=== PATIENT | female | born 1940 | race Caucasian/White ===

== ENCOUNTER → 2016-12-10 | Outpatient (CLI) | payer MEDICARE, OTHER ==
[~2016-12-10] MED LIST: ADAL1INJ INJ; ATOR20TA42 PO; CELE200 PO; CLON.3T TD; FENO50TA PO; LEXA10TA PO; METH2.5 PO; METH4PAK PO; OXYC1SOL5 PO; RIVA20 PO
[2016-12-10 13:15] LABS: AUTOMATED NEUTROPHIL # 2.1 TH/MM3 (1.8-7.7); BASOPHIL % 0.7 % (0.0-2.0); EOSINOPHIL # 0.2 TH/MM3 (0-0.4); EOSINOPHIL % 4.9 % (0.0-4.0); HEMO FLAGS DIFF FINAL; LYMPH % 31.7 % (9.0-44.0); LYMPHOCYTE # 1.5 TH/MM3 (1.0-4.8); MEAN CELL VOLUME 90.6 FL (80.0-100.0); MEAN CORPUSCULAR HEMOGLOBIN 28.9 PG (27.0-34.0); MEAN CORPUSCULAR HGB CONC 31.9 % (32.0-36.0); MONO % 16.2 % (0.0-8.0); NEUT % 46.5 % (16.0-70.0); PLATELET COUNT 299 TH/MM3 (150-450); RED BLOOD COUNT 3.98 MIL/MM3 (4.00-5.30); RED CELL DISTRIBUTION WIDTH 18.1 % (11.6-17.2); WHITE BLOOD COUNT 4.6 TH/MM3 (4.0-11.0)
[2016-12-10 13:37] LABS: ANION GAP 6 MEQ/L (5-15); AST (GOT) 30 U/L (15-37); BICARBONATE 30.1 MEQ/L (21.0-32.0); BLOOD UREA NITROGEN 17 MG/DL (7-18); CHLORIDE 107 MEQ/L (98-107); GLOMERULAR FILTRATION RATE 58 ML/MIN (>89); SODIUM (NA) 143 MEQ/L (136-145)
[2016-12-10 13:44] LABS: ALKALINE PHOSPHATASE 40 U/L (45-117); ALT (GPT) 28 U/L (10-53); TOTAL BILIRUBIN ADULT 0.3 MG/DL (0.2-1.0)
== END ==
LOC: PLAB 08:57
PROVIDERS: ATTEND Allergy & Immunology
DX: M05.772 Rheumatoid arthritis with rheumatoid factor of left ankle and foot without organ or systems involvement (principal); M05.771 Rheumatoid arthritis with rheumatoid factor of right ankle and foot without organ or systems involvement
CPT/HCPCS: 36415; 80053; 85025; 86140

== ENCOUNTER → 2017-03-05 | Outpatient (CLI) | payer MEDICARE, OTHER ==
[2017-03-05 16:15] LABS: ANION GAP 3 MEQ/L (5-15); AST (GOT) 21 U/L (15-37); BICARBONATE 28.9 MEQ/L (21.0-32.0); BLOOD UREA NITROGEN 22 MG/DL (7-18); CHLORIDE 107 MEQ/L (98-107); GLOMERULAR FILTRATION RATE 59 ML/MIN (>89); POTASSIUM 4.3 MEQ/L (3.5-5.1); SODIUM (NA) 139 MEQ/L (136-145)
[2017-03-05 16:17] LABS: ALT (GPT) 24 U/L (10-53)
[2017-03-05 16:18] LABS: ALKALINE PHOSPHATASE 44 U/L (45-117); AUTOMATED NEUTROPHIL # 4.3 TH/MM3 (1.8-7.7); BASOPHIL % 0.3 % (0.0-2.0); EOSINOPHIL # 0.1 TH/MM3 (0-0.4); EOSINOPHIL % 1.2 % (0.0-4.0); HEMATOCRIT 32.7 % (35.0-46.0); HEMO FLAGS DIFF FINAL; LYMPH % 35.3 % (9.0-44.0); LYMPHOCYTE # 2.7 TH/MM3 (1.0-4.8); MEAN CELL VOLUME 91.3 FL (80.0-100.0); MEAN CORPUSCULAR HEMOGLOBIN 28.8 PG (27.0-34.0); MEAN CORPUSCULAR HGB CONC 31.5 % (32.0-36.0); MONO % 7.7 % (0.0-8.0); NEUT % 55.5 % (16.0-70.0); PLATELET COUNT 313 TH/MM3 (150-450); RED BLOOD COUNT 3.58 MIL/MM3 (4.00-5.30); RED CELL DISTRIBUTION WIDTH 20.1 % (11.6-17.2); TOTAL BILIRUBIN ADULT 0.2 MG/DL (0.2-1.0); WHITE BLOOD COUNT 7.8 TH/MM3 (4.0-11.0)
== END ==
LOC: PLAB 12:40
PROVIDERS: ATTEND Allergy & Immunology
DX: M05.771 Rheumatoid arthritis with rheumatoid factor of right ankle and foot without organ or systems involvement (principal); M05.772 Rheumatoid arthritis with rheumatoid factor of left ankle and foot without organ or systems involvement
CPT/HCPCS: 36415; 80053; 85025

== ENCOUNTER → 2017-04-15 | Outpatient (CLI) | payer MEDICARE, OTHER ==
[2017-04-15 13:11] LABS: HEMATOCRIT 33.4 % (35.0-46.0); HEMOGLOBIN 10.1 GM/DL (11.6-15.3); MEAN CELL VOLUME 89.9 FL (80.0-100.0); MEAN CORPUSCULAR HEMOGLOBIN 27.2 PG (27.0-34.0); MEAN CORPUSCULAR HGB CONC 30.2 % (32.0-36.0); MEAN PLATELET VOLUME 8.2 FL (7.0-11.0); PLATELET COUNT 537 TH/MM3 (150-450); RED BLOOD COUNT 3.72 MIL/MM3 (4.00-5.30); RED CELL DISTRIBUTION WIDTH 20.1 % (11.6-17.2); WHITE BLOOD COUNT 6.9 TH/MM3 (4.0-11.0)
[2017-04-15 13:44] LABS: ALBUMIN 3.4 GM/DL (3.4-5.0); AST (GOT) 20 U/L (15-37); BICARBONATE 24.6 MEQ/L (21.0-32.0); BLOOD UREA NITROGEN 20 MG/DL (7-18); CALCIUM 8.9 MG/DL (8.5-10.1); CHLORIDE 107 MEQ/L (98-107); CREATININE 0.92 MG/DL (0.50-1.00); GLOMERULAR FILTRATION RATE 59 ML/MIN (>89); GLUCOSE,FASTING 102 MG/DL (74-99); SODIUM (NA) 140 MEQ/L (136-145)
[2017-04-15 13:46] LABS: CHOLESTEROL 123 MG/DL (120-200)
[2017-04-15 13:50] LABS: ALKALINE PHOSPHATASE 45 U/L (45-117); ALT (GPT) 20 U/L (10-53); CHOLESTEROL/ HDL RATIO 3.03 RATIO; HDL CHOLESTEROL 40.5 MG/DL (40.0-60.0); LDL CHOLESTEROL 56 MG/DL (0-99); TOTAL BILIRUBIN ADULT 0.3 MG/DL (0.2-1.0); TOTAL PROTEIN 6.9 GM/DL (6.4-8.2); TRIGLYCERIDES 134 MG/DL (42-150)
== END ==
LOC: PLAB 10:23
PROVIDERS: ATTEND Family Medicine
DX: E78.2 Mixed hyperlipidemia (principal); M06.9 Rheumatoid arthritis, unspecified
CPT/HCPCS: 36415; 80053; 80061; 85027

== ENCOUNTER 2017-05-05 17:04 | Inpatient (IN) | payer MEDICARE, OTHER ==
[~2017-05-05] VITALS: Ht 167.6 cm; Wt 179.9 kg
[2017-05-05] VITALS (9 sets, daily range): BP systolic 120–155; BP diastolic 54–87; PULSE 85–108; RESP 18–28; TEMP 97.8–99.2; O2SAT 90–100
[2017-05-05 17:30] LABS: BLOOD GAS BASE EXCESS -3.5 mmol/L (-2-2); BLOOD GAS CARBOXYHEMOGLOBIN 2.6 % (0-4); BLOOD GAS HCO3 20 mmol/L (22-26); BLOOD GAS METHEMOGLOBIN 0.4 % (0-2); BLOOD GAS O2 HGB SATURATION 98 % (90-100); BLOOD GAS OXYGEN CONTENT 5.5 Vol % (12.0-20.0); BLOOD GAS PCO2 28 mmHg (38-42); BLOOD GAS PO2 138 mmHG (61-120); BLOOD GAS TOTAL HGB 3.8 G/DL (12.0-16.0); CRITICAL VALUE YES; DRAW SITE RT RADIAL; LITER FLOW 4 L/M; NUMBER OF ARTERIAL PUNCTURES 1; OXYGEN DEVICE NASAL CANNULA; STAT YES; TEMP CORR TO 98.6; ULNAR PULSE PRESENT
[2017-05-05] MEDS ORDERED: SODIUM CHLOR 0.9% 250 ML INJ 250 ML IV ONE ×2 (17:30→19:30)
[2017-05-05] MEDS ORDERED: PROTHROMBIN COMPLEX CONC INJ 4,000 UNITS in SYRINGE/BAG 1 EA IV ONE (17:30)
[2017-05-05] MEDS ORDERED: SODIUM CHLORIDE 0.9% FLUSH 10 ML FLUSH IVF PRN (17:30)
[2017-05-05] MEDS ORDERED: PANTOPRAZOLE INJ 80 MG in SODIUM CHLORIDE 0.9% INJ 35 ML IV ONE (17:30)
[2017-05-05 17:35] LABS: AUTOMATED NEUTROPHIL # 6.9 TH/MM3 (1.8-7.7); BASOPHIL % 0.4 % (0.0-2.0); EOSINOPHIL % 0.1 % (0.0-4.0); LYMPH % 25.4 % (9.0-44.0); LYMPHOCYTE # 2.8 TH/MM3 (1.0-4.8); MEAN CELL VOLUME 91.6 FL (80.0-100.0); MEAN CORPUSCULAR HEMOGLOBIN 29.4 PG (27.0-34.0); MEAN CORPUSCULAR HGB CONC 32.1 % (32.0-36.0); MONO % 10.6 % (0.0-8.0); NEUT % 63.5 % (16.0-70.0); PLATELET COUNT 392 TH/MM3 (150-450); RED BLOOD COUNT 1.37 MIL/MM3 (4.00-5.30); RED CELL DISTRIBUTION WIDTH 22.2 % (11.6-17.2); WHITE BLOOD COUNT 10.9 TH/MM3 (4.0-11.0)
[2017-05-05 17:36] LABS: HEMO FLAGS AUTO DIFF
[2017-05-05 17:38] LABS: HEMATOCRIT 12.6 % (35.0-46.0)
[2017-05-05 17:53] LABS: APTT (PATIENT) 19.2 SEC (24.3-30.1); INTERNATIONAL NORMALIZED RATIO 1.3 RATIO
[2017-05-05 18:02] LABS: ALT (GPT) 20 U/L (10-53); ANION GAP 12 MEQ/L (5-15); AST (GOT) 23 U/L (15-37); BICARBONATE 18.9 MEQ/L (21.0-32.0); BLOOD UREA NITROGEN 24 MG/DL (7-18); CHLORIDE 111 MEQ/L (98-107); GLOMERULAR FILTRATION RATE 43 ML/MIN (>89); SODIUM (NA) 142 MEQ/L (136-145)
[2017-05-05 18:06] LABS: ALKALINE PHOSPHATASE 40 U/L (45-117); TOTAL BILIRUBIN ADULT 0.3 MG/DL (0.2-1.0)
--- NOTE | 2017-05-05 18:15 | PD ---
HPI Chief Complaint: Respiratory Distress Time Seen by Provider: 17:22 Travel History International Travel<30 days: No Contact w/Intl Traveler<30days: No Traveled to known affect area: No History of Present Illness HPI Patient is a 77-year-old female who comes in complaining of shortness of breath. She says she has been short of breath for the past few weeks has been getting worse. She says shortness of breath is worse with walking around. She denies any chest pain. She apparently had some blood in her stool a few weeks ago, but never saw her doctor. She does say her shows no black. She is on Xarelto for A. fib. She denies any abdominal pain or nausea or vomiting. She denies any fever or chills. PFSH Past Medical History Hx Anticoagulant Therapy: Yes (XARELTO) Arthritis: Yes Atrial Fibrillation: Yes Blood Disorders: No Cancer: No Cardiovascular Problems: Yes (AFIB, HTN) High Cholesterol: Yes Diabetes: No Diminished Hearing: No Endocrine: No Genitourinary: No Hepatitis: No Hiatal Hernia: No Hypertension: Yes Immune Disorder: Yes (RHEUMATOID ARTHRITIS) Musculoskeletal: Yes (RHEUMATOID ARTHRITIS, OSTEOARTHRITIS, KASHMIR KNEES, R ANKLE REPLACEMENT) Neurologic: No Psychiatric: Yes (CLAUSTROPHOBIC) Reproductive: No Respiratory: No Tetanus Vaccination: Unknown Influenza Vaccination: No ?: Not Menopausal: Yes Past Surgical History Body Medical Devices: RT ANKLE FUSION, TOES R FOOT, L HAND WIRE TO FINGER Joint Replacement: Yes (RIGHT KNEE AND LEFT KNEE) Oral Surgery: Yes (TUMOR REMOVED From the thyroid) Pacemaker: No Other Surgery: Yes (RODS IN RIGHT FOOT. METAL IN TOES.) Social History Alcohol Use: Yes (OCC) Tobacco Use: No (QUIT 30 YEARS AGO) Substance Use: No Allergies-Medications (Allergen,Severity, Reaction): Coded Allergies: No Known Allergies (Verified Allergy, Unknown, 05/05/17) Reported Meds & Prescriptions Reported Meds & Active Scripts Active Oxycodone/Acetaminophen 5 mg/325 mg 1 Tab Tab 1 Tab PO Q4H PRN Reported Xarelto 20 Mg Tab (Rivaroxaban) 20 Mg Tab 20 Mg PO HS Methylprednisolone 4 Mg Tab 4 Mg PO EVERY OTHER DAY Ksrbxvsr-Tcp-3 (Clonidine Hcl) 0.3 Mg/24 Hr Dis 0.3 Mg TD WEEKLY APPLIES EVERY FRIDAY Humira (Adalimumab) 10 Mg/0.2 Ml Inj 40 Mg INJ EVERY OTHER WEEK Lexapro (Escitalopram Oxalate) 10 Mg Tab 10 Mg PO DAILY Rheumatrex (Methotrexate) 2.5 Mg Tab 15 Mg PO FRIDAY 2.5MG 6 TABS ON FRIDAY Tricor (Fenofibrate) 145 Mg Tab 145 Mg PO HS Lipitor (Atorvastatin Calcium) 20 Mg Tab 20 Mg PO HS Celebrex (Celecoxib) 200 Mg Cap 200 Mg PO DAILY Review of Systems Except as stated in HPI: all other systems reviewed are Neg General / Constitutional: No: Fever, Chills Eyes: No: Blurred Vision HENT: Positive: Lightheadedness Cardiovascular: Positive: Palpitations, No: Chest Pain or Discomfort Respiratory: Positive: Shortness of Breath Gastrointestinal: No: Nausea, Vomiting, Abdominal Pain Musculoskeletal: No: Edema, Pain Skin: Positive Change in Pigmentation, No Rash Neurologic: Positive: Weakness Physical Exam Narrative GENERAL: Awake and alert, in mild distress. SKIN: Focused skin assessment warm/dry. Pale in color HEAD: Atraumatic. Normocephalic. EYES: Pupils equal and round. No scleral icterus. No injection or drainage. Conjunctival pallor. ENT: Mucous membranes pink and moist. NECK: Trachea midline. No JVD. CARDIOVASCULAR: Regular rate and rhythm. No murmur appreciated. RESPIRATORY: No accessory muscle use. Clear to auscultation. Breath sounds equal bilaterally. GASTROINTESTINAL: Abdomen soft, non-tender, nondistended. H Rectal: Black stool, positive for blood. MUSCULOSKELETAL: No obvious deformities. No clubbing. No cyanosis. No edema. NEUROLOGICAL: Awake and alert. No obvious cranial nerve deficits. Motor grossly within normal limits. Normal speech. PSYCHIATRIC: Appropriate mood and affect; insight and judgment normal. Data Data Last Documented VS Vital Signs Date Time Temp Pulse Resp B/P (MAP) Pulse Ox O2 Delivery O2 Flow Rate FiO2 05/05/17 17:28 95 Nasal Cannula 3.00 05/05/17 17:28 97.8 88 20 138/57 (84) Orders Orders Complete Blood Count With Diff (05/05/17 17:23) Comprehensive Metabolic Panel (05/05/17 17:23) B-Type Natriuretic Peptide (05/05/17 17:23) Act Partial Throm Time (Ptt) (05/05/17 17:23) Prothrombin Time / Inr (Pt) (05/05/17:) Troponin I (05/05/17:) Urinalysis - C+S If Indicated (05/05/17:) Iv Access Insert/Monitor (05/05/17) Electrocardiogram (05/05/17) Ecg Monitoring (05/05/17) Oximetry (05/05/17) Oxygen Administration (05/05/17) Chest, Single Ap (05/05/17) Sodium Chloride 0.9% Flush (Ns Flush) (05/05/17) Type And Screen (05/05/17) Pantoprazole Inj (Protonix Inj) (05/05/17) Pantoprazole Inj (Protonix Inj) (05/05/17) Red Blood Cells (Rbc) (05/05/17:) Blood Product Administration (05/05/17) Sodium Chlor 0.9% 250 Ml Inj (Ns 250 Ml (05/05/17) ^ Lab Follow Up (05/05/17) Prothrombin Complex Conc Inj (Kcentra In (05/05/17:) Arterial Blood Gas (Abg) (05/05/17) Labs Laboratory Tests Test 05/05/17 17:00 05/05/17 White Blood Count 10.9 TH/MM3 Red Blood Count 1.37 MIL/MM3 Hemoglobin 4.0 GM/DL Hematocrit 12.6 % Mean Corpuscular Volume 91.6 FL Mean Corpuscular Hemoglobin 29.4 PG Mean Corpuscular Hemoglobin Concent 32.1 % Red Cell Distribution Width 22.2 % Platelet Count 392 TH/MM3 Mean Platelet Volume 8.0 FL Neutrophils (%) (Auto) 63.5 % Lymphocytes (%) (Auto) 25.4 % Monocytes (%) (Auto) 10.6 % Eosinophils (%) (Auto) 0.1 % Basophils (%) (Auto) 0.4 % Neutrophils # (Auto) 6.9 TH/MM3 Lymphocytes # (Auto) 2.8 TH/MM3 Monocytes # (Auto) 1.2 TH/MM3 Eosinophils # (Auto) 0.0 TH/MM3 Basophils # (Auto) 0.0 TH/MM3 CBC Comment AUTO DIFF Prothrombin Time 14.0 SEC Prothromb Time International Ratio 1.3 RATIO Activated Partial Thromboplast Time 19.2 SEC Blood Urea Nitrogen 24 MG/DL Creatinine 1.21 MG/DL Random Glucose 120 MG/DL Total Protein 6.0 GM/DL Albumin 2.8 GM/DL Calcium Level 8.1 MG/DL Alkaline Phosphatase 40 U/L Aspartate Amino Transf (AST/SGOT) 23 U/L Alanine Aminotransferase (ALT/SGPT) 20 U/L Total Bilirubin 0.3 MG/DL Sodium Level 142 MEQ/L Potassium Level 4.0 MEQ/L Chloride Level 111 MEQ/L Carbon Dioxide Level 18.9 MEQ/L Anion Gap 12 MEQ/L Estimat Glomerular Filtration Rate 43 ML/MIN Troponin I 0.02 NG/ML Blood Gas Puncture Site RT RADIAL Blood Gas Patient Temperature 98.6 Blood Gas HCO3 20 mmol/L Blood Gas Base Excess -3.5 mmol/L Blood Gas Oxygen Saturation 98 % Arterial Blood pH 7.46 Arterial Blood Partial Pressure CO2 28 mmHg Arterial Blood Partial Pressure O2 138 mmHG Arterial Blood Oxygen Content 5.5 Vol % Arterial Blood Carboxyhemoglobin 2.6 % Arterial Blood Methemoglobin 0.4 % Blood Gas Hemoglobin 3.8 G/DL Oxygen Delivery Device NASAL CANNULA Blood Gas Liter Flow 4 L/M [facility] Medical Decision Making Medical Screen Exam Complete: Yes Emergency Medical Condition: Yes Medical Record Reviewed: Yes Interpretation(s) ECG shows normal sinus rhythm at 91 with occasional PVCs. Differential Diagnosis GI bleed versus CHF versus coagulopathy versus anemia Narrative Course Patient is a 77-year-old female comes in complaining of shortness of breath. Exam shows patient is very pale in color. Stool is black, or occult blood. IV established, labs sent. Labs show hemoglobin of 4. PRBCs ordered. The patient. Patient is on Xarelto. Kcentra was ordered. Patient will be admitted for further management. Diagnosis Primary Impression: Anemia Qualified Codes: D64.9 - Anemia, unspecified Additional Impressions: Dyspnea Qualified Codes: R06.02 - Shortness of breath GI bleed Qualified Codes: K92.2 - Gastrointestinal hemorrhage, unspecified Admitting Information Admitting Physician Requests: Admit Yissel Mann MD May 05, 2017 18:15
[2017-05-05 18:17] LABS: PLATELET ESTIMATE SMEAR NORMAL (NORMAL); PLATELET MORPHOLOGY NORMAL (NORMAL); SCAN/DIFF AUTO DIFF CONFIRMED
[2017-05-05] MEDS: PANTOPRAZOLE INJ 80 MG in SODIUM CHLORIDE 0.9% INJ 100 ML IV SCH ×2 (18:20→21:00)
--- NOTE | 2017-05-05 18:29 | RADRPT ---
EXAM DATE/TIME: 05/05/2017 17:37 [place] COMPARISON: CHEST SINGLE AP, December 20, 2014, 15:53. INDICATIONS : Short of breath MEDICAL HISTORY : A-fib SURGICAL HISTORY : None. ENCOUNTER: Initial ACUITY: 4 - 6 days PAIN SCORE: 0/10 LOCATION: chest FINDINGS: A single view of the chest demonstrates the lungs to be symmetrically aerated without evidence of mas s, infiltrate or effusion. The cardiomediastinal contours are unremarkable. Mild curvature of the t horacic spine towards the left. Right shoulder prosthesis.. CONCLUSION: The lungs are clear. Ulices Lopez MD on May 05, 2017 at 18:23 Board Certified Radiologist. This report was verified electronically.
[2017-05-05] MEDS ORDERED: SENNOSIDES 8.6 MG TAB PO PRN (19:15)
[2017-05-05] MEDS ORDERED: LACTULOSE SYRUP 20 GM/30 ML CUP PO PRN (19:15)
[2017-05-05] MEDS ORDERED: MAGNESIUM HYDROXIDE SUSP 30 ML CUP PO PRN (19:15)
[2017-05-05] MEDS ORDERED: BISACODYL 10 MG SUPP RECTAL PRN (19:15)
[2017-05-05] MEDS ORDERED: ACETAMINOPHEN 325 MG TAB PO PRN (19:15)
[2017-05-05] MEDS ORDERED: MISCELLANEOUS NURSING INFORMATION XX SCH (19:15)
[2017-05-05] MEDS ORDERED: CHLORHEXIDINE GLUCONATE 2 % 1 PACK (2 CLOTHS) TOP PRN (19:15)
[2017-05-05] MEDS ORDERED: SODIUM CHLORIDE 0.9% FLUSH 10 ML FLUSH IV FLUSH PRN (19:15)
[2017-05-05] MEDS ORDERED: POTASSIUM PHOSPHATE INJ 30 MMOL in SODIUM CHLOR 0.9% 250 ML INJ 250 ML IV PRN (19:30)
[2017-05-05] MEDS ORDERED: MAGNESIUM SULFATE INJ 4 GM in SODIUM CHLORIDE 0.9% INJ 92 ML IV PRN (19:30)
[2017-05-05] MEDS ORDERED: SODIUM PHOSPHATE INJ 30 MMOL in SODIUM CHLOR 0.9% 250 ML INJ 240 ML IV PRN (19:30)
[2017-05-05] MEDS ORDERED: POTASSIUM PHOSPHATE MONOBASIC 500 MG TAB PO/TUBE PRN (19:30)
[2017-05-05] MEDS ORDERED: MAGNESIUM OXIDE 400 MG TAB PO PRN (19:30)
[2017-05-05] MEDS ORDERED: POTASSIUM PHOSPHATE MONOBASIC 500 MG TAB PO PRN (19:30)
[2017-05-05] MEDS ORDERED: POTASSIUM CHLOR 20 MEQ PREMIX 100 ML IV PRN ×2 (19:30)
[2017-05-05] MEDS ORDERED: MAGNESIUM SULFATE INJ 2 GM in SODIUM CHLORIDE 0.9% INJ 96 ML IV PRN (19:30)
[2017-05-05] MEDS ORDERED: POTASSIUM CHLOR 40 MEQ PREMIX 100 ML IV PRN ×2 (19:30)
[2017-05-05] MEDS ORDERED: POTASSIUM CHLORIDE 25 MEQ EFFERVESCENT TAB PO PRN (19:30)
--- NOTE | 2017-05-05 19:33 | HHI.HP ---
HPI Service Critical Care Medicine Primary Care Physician Abdulaziz Orozco MD Admission Diagnosis GI bleed, symptomatic anemia Diagnosis: Travel History International Travel<30 Days: No Contact w/Intl Traveler <30 Da: No Traveled to Known Affected Are: No History of Present Illness 77-year-old female with past medical history of paroxysmal atrial fibrillation on chronic anticoagulation with Xarelto, hypertension, rheumatoid arthritis on disease modifying therapy , osteoarthritis, prior smoking history who presents to [facility] emergency department with chief complaint of shortness of breath and dyspnea on exertion for the last 2-3 weeks. She has not had any associated chest pain, cough, hemoptysis. She was found to have hgb 4 today with prior hgb 10.1 on 04/15/17. She states she has had melena stools for about 2-3 weeks. Typically she has had about 2 melena stools every morning. Over the last 24 hours the stools have increased and she had 2 yesterday morning and 3 yesterday evening. She hasn't had any vomiting until she vomited once today, no coffee grounds or BRB. She has had anorexia for about 3 weeks but denies weight loss or night sweats. No fever, abdominal pain, back pain, fall. She has no prior history of GI bleeding. No prior colonoscopy or EGD and has never seen a corporate development officer. No liver disease or significant EtOH hx. She has been on xarelto for 2 years and reports medication compliance. She is chronically on celebrex for several years for arthritis. She is also on prednisone 4 mg qod. She is on methotrexate and Humira for RA. Her only recent medication change is the discontinuation of Fosamax and start of Prolia 2 months ago,. She is tachycardic in 108 on arrival but has been normotensive. In the ED she received Kcentra 50 units/kg, Protonix drip. 3 units packed red cells have been ordered. Review of Systems Constitutional: DENIES: Fever, Weight gain, Weight loss Cardiovascular: COMPLAINS OF: Dyspnea on Exertion, DENIES: Chest pain Gastrointestinal: COMPLAINS OF: Black stools, Anorexia, DENIES: Constipation Integumentary: DENIES: Rash Hematologic/lymphatic: DENIES: Bruising Neurologic: DENIES: Headache Past Family Social History Allergies: Coded Allergies: No Known Allergies (Verified Allergy, Unknown, 05/05/17) Past Medical History Paroxysmal atrial fibrillation on anticoagulation with xarelto. Her funeral arranger is Dr. Trinidad Hypertension Rheumatoid arthritis Osteoarthritis CKD stage III Past Surgical History Right ankle fusion Surgery on her left thumb Bilateral knee replacement Right shoulder arthroplasty Resection of benign thyroid mass Reported Medications Methotrexate 50 mg by mouth weekly on Friday Xarelto 20 g by mouth daily at bedtime Fenofibrate 145 g by mouth daily at bedtime Atorvastatin 20 mill grams by mouth daily at bedtime Catapres patch 0.3 mg weekly Celebrex 200 mg by mouth daily Oxycodone 5/325 one tab by mouth every 4 hours as needed for pain Lexapro 10 mill grams by mouth daily Prednisone 4 mg by mouth every other day Humira 40 mg injection q2 weeks. Family History Father of [place] in his late 60s Mother of lung cancer in her 60s Social History Drinks alcohol occasionally Smoked a pack of cigarettes per day for 20 years. Quit smoking 30 years ago Lives in [place] Physical Exam Vital Signs Vital Signs Date Time Temp Pulse Resp B/P (MAP) Pulse Ox O2 Delivery O2 Flow Rate FiO2 05/05/17 19:14 96 18 120/54 (76) 100 Nasal Cannula 3.00 05/05/17 17:28 95 Nasal Cannula 3.00 05/05/17 17:28 97.8 88 20 138/57 (84) 98 Nasal Cannula 3.00 05/05/17 17:19 108 24 100 Nasal Cannula 3.00 05/05/17 17:11 97.8 108 22 138/57 (84) 90 Physical Exam GENERAL: Pale appearing elderly patient who is sitting up in ED stretcher. SKIN: Pale HEAD: Atraumatic. Normocephalic. EYES: Pupils equal and round. No scleral icterus. Conjunctiva pale ENT: No nasal bleeding or discharge. Mucous membranes pink and moist. NECK: Trachea midline. No JVD. CARDIOVASCULAR: Regular rate and rhythm, sinus rhythm on the monitor. No murmurs rubs or gallops. RESPIRATORY: Tachypneic but no accessory muscle use. Clear to auscultation bilaterally. No wheezes Rales or rhonchi. GASTROINTESTINAL: Abdomen soft, non-tender, nondistended. Bowel sounds present. No costovertebral angle tenderness MUSCULOSKELETAL: Extremities without clubbing, cyanosis. There is trace pedal edema. Chronic deformities of feet NEUROLOGICAL: Awake and alert. No obvious cranial nerve deficits. Motor grossly within normal limits. Normal speech. Laboratory Laboratory Tests Test 05/05/17 17:00 05/05/17 17:17 White Blood Count 10.9 Red Blood Count 1.37 Hemoglobin 4.0 Hematocrit 12.6 Mean Corpuscular Volume 91.6 Mean Corpuscular Hemoglobin 29.4 Mean Corpuscular Hemoglobin Concent 32.1 Red Cell Distribution Width 22.2 Platelet Count 392 Mean Platelet Volume 8.0 Neutrophils (%) (Auto) 63.5 Lymphocytes (%) (Auto) 25.4 Monocytes (%) (Auto) 10.6 Eosinophils (%) (Auto) 0.1 Basophils (%) (Auto) 0.4 Neutrophils # (Auto) 6.9 Lymphocytes # (Auto) 2.8 Monocytes # (Auto) 1.2 Eosinophils # (Auto) 0.0 Basophils # (Auto) 0.0 CBC Comment AUTO DIFF Differential Comment AUTO DIFF CONFIRMED Platelet Estimate NORMAL Platelet Morphology Comment NORMAL Prothrombin Time 14.0 Prothromb Time International Ratio 1.3 Activated Partial Thromboplast Time 19.2 Blood Urea Nitrogen 24 Creatinine 1.21 Random Glucose 120 Total Protein 6.0 Albumin 2.8 Calcium Level 8.1 Alkaline Phosphatase 40 Aspartate Amino Transf (AST/SGOT) 23 Alanine Aminotransferase (ALT/SGPT) 20 Total Bilirubin 0.3 Sodium Level 142 Potassium Level 4.0 Chloride Level 111 Carbon Dioxide Level 18.9 Anion Gap 12 Estimat Glomerular Filtration Rate 43 Troponin I 0.02 B-Type Natriuretic Peptide 121 Blood Gas Puncture Site RT RADIAL Blood Gas Patient Temperature 98.6 Blood Gas HCO3 20 Blood Gas Base Excess -3.5 Blood Gas Oxygen Saturation 98 Arterial Blood pH 7.46 Arterial Blood Partial Pressure CO2 28 Arterial Blood Partial Pressure O2 138 Arterial Blood Oxygen Content 5.5 Arterial Blood Carboxyhemoglobin 2.6 Arterial Blood Methemoglobin 0.4 Blood Gas Hemoglobin 3.8 Oxygen Delivery Device NASAL CANNULA Blood Gas Liter Flow 4 Result Diagram: 05/05/17169905/05/171699 Caprini VTE Risk Assessment Caprini VTE Risk Assessment: Mod/High Risk (score >= 2) VTE Pharm Contraindication: Hemorrhage Caprini Risk Assessment Model Point Value = 1 Point Value = 2 Point Value = 3 Point Value = 5 Age 41-60 Minor surgery BMI > 25 kg/m2 Swollen legs Varicose veins or History of unexplained or recurrent spontaneous Oral contraceptives or hormone replacement Sepsis (< 1 month) Serious lung disease, including pneumonia (< 1 month) Abnormal pulmonary function Acute myocardial infarction Congestive heart failure (< 1 month) History of inflammatory bowel disease Medical patient at bed rest Age 61-74 Arthroscopic surgery Major open surgery (> 45 min) Laparoscopic surgery (> 45 min) Malignancy Confined to bed (> 72 hours) Immobilizing plaster cast Central venous access Age >= 75 History of VTE Family history of VTE Factor V Leiden Prothrombin [id number] Lupus anticoagulant Anticardiolipin antibodies Elevated serum homocysteine Heparin-induced thrombocytopenia Other congenital or acquired thrombophilia Stroke (< 1 month) Elective arthroplasty Hip, pelvis, or leg fracture Acute spinal cord injury (< 1 month) Prophylaxis Regimen Total Risk Factor Score Risk Level Prophylaxis Regimen 0-1 Low Early ambulation 2 Moderate Order ONE of the following: *Sequential Compression Device (SCD) *Heparin 5000 units SQ BID 3-4 Higher Order ONE of the following medications: *Heparin 5000 units SQ TID *Enoxaparin/Lovenox 40 mg SQ daily (WT < 150 kg, CrCl > 30 mL/min) *Enoxaparin/Lovenox 30 mg SQ daily (WT < 150 kg, CrCl > 10-29 mL/min) *Enoxaparin/Lovenox 30 mg SQ BID (WT < 150 kg, CrCl > 30 mL/min) AND/OR *Sequential Compression Device (SCD) 5 or more Highest Order ONE of the following medications: *Heparin 5000 units SQ TID (Preferred with Epidurals) *Enoxaparin/Lovenox 40 mg SQ daily (WT < 150 kg, CrCl > 30 mL/min) *Enoxaparin/Lovenox 30 mg SQ daily (WT < 150 kg, CrCl > 10-29 mL/min) *Enoxaparin/Lovenox 30 mg SQ BID (WT < 150 kg, CrCl > 30 mL/min) AND *Sequential Compression Device (SCD) Assessment and Plan Problem List: (1) Acute blood loss anemia ICD Code: D62 - Acute posthemorrhagic anemia Status: Acute (2) Melena ICD Code: K92.1 - Melena Status: Acute (3) Iron deficiency anemia ICD Code: D50.9 - Iron deficiency anemia, unspecified (4) HLD (hyperlipidemia) ICD Code: E78.5 - Hyperlipidemia, unspecified Status: Chronic (5) HTN (hypertension) ICD Code: I10 - Essential (primary) hypertension Status: Chronic (6) Paroxysmal atrial fibrillation ICD Code: I48.0 - Paroxysmal atrial fibrillation Status: Chronic (7) Anticoagulated by anticoagulation treatment ICD Code: 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 Status: Chronic (8) Osteoarthritis ICD Code: M19.90 - Unspecified osteoarthritis, unspecified site Status: Chronic (9) Depression ICD Code: F32.9 - Major depressive disorder, single episode, unspecified Status: Chronic (10) Rheumatoid arthritis involving multiple sites ICD Code: M06.9 - Rheumatoid arthritis involving multiple sites Status: Chronic (11) GI bleed ICD Code: K92.2 - Gastrointestinal hemorrhage, unspecified Status: Acute (12) Dyspnea ICD Code: R06.00 - Dyspnea, unspecified Status: Acute (13) Immunocompromised patient ICD Code: D84.9 - Immunodeficiency, unspecified Status: Chronic (14) Current chronic use of systemic steroids ICD Code: Z79.52 - correction (current) use of systemic steroids Status: Chronic (15) HOLLEY (acute kidney injury) ICD Code: N17.9 - Acute kidney failure, unspecified Status: Acute (16) CKD (chronic kidney disease) stage 3, GFR 30-59 ml/min ICD Code: N18.3 - Chronic kidney disease, stage 3 (moderate) Status: Chronic (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 Nasal cannula wean as tolerated CV: Paroxysmal Atrial fibrillation on chronic anticoagulation with xarelto Hyperlipidemia Hypertension Hold statin/fenofibrate for now. Hold xarelto due to bleeding. Catapres 0.3 mg patch weekly No known history of CHF. Obtain Echo GI: Melena Likely Upper GI bleeding, multiple risk factors for PUD. No prior GI workup. No h/o liver disease Protonix drip Serial hemoglobin every 6 hours Consult gastroenterology Zofran as needed for nausea FEN/RENAL: HOLLEY overlying CKD stage III Monitor urine output. Monitor BMP. Monitor electrolytes and replace as indicated per ICU electrolyte replacement protocol. ID: Monitor for signs and symptoms of infection HEME: Acute blood loss anemia Iron deficiency Chronic anticoagulation with Xarelto for atrial fibrillation Blood loss has likely been gradual over couple weeks. Transfuse 3 units PRBC now. Keep 4 units on hold. Hold Xarelto. Received K Centra 50 units per KG IV in the emergency department 05/05. Ferrous sulfate 325 mill grams by mouth twice a day RHEUMATOLOGY: Rheumatoid arthritis Osteoarthritis Hold Humira every other week. Hold methotrexate 15 mg every Friday . Prednisone are per discussion below Her delivery representative is Dr. Pradip Presley ENDO: Chronic steroid use On prednisone 4 mg po qod. Has been on chronic steroids for years for RA. Hold currently due to GI bleeding but will likely need to resume. Hydrocortisone 50 mg IV q12 hours while acutely ill, increase if symptomatic adrenal insufficiency. PROPH: SCD for DVT prophylaxis. Pharmacologic DVT prophylaxis contraindicated due to GI bleeding with acute life-threatening anemia. Protonix drip as per above ACCESS: Peripheral IV providing adequate access at this time Discussed with Dr. Mann. Patient and her updated at bedside Full code Level III H&P Problem Qualifiers (1) Iron deficiency anemia: Qualified Codes: D50.0 - Iron deficiency anemia secondary to blood loss ( chronic) (2) Osteoarthritis: (3) GI bleed: Qualified Codes: K92.2 - Gastrointestinal hemorrhage, unspecified (4) Dyspnea: Qualified Codes: R06.02 - Shortness of breath Kandi Villarreal MD May 05, 2017 19:33
[2017-05-05 19:42] LABS: TRANSFERRIN IRON PROFILE 337 MG/DL (200-360)
[2017-05-05 20:07] LABS: LDH SERUM 219 U/L (84-246)
[2017-05-05] MEDS: DOCUSATE SODIUM 50 MG/SENNA 8.6 MG TAB PO SCH (21:00)
[2017-05-05] MEDS: SODIUM CHLOR 0.9% 1000 ML INJ 1,000 ML IV SCH (21:00)
[2017-05-05] MEDS: CHLORHEXIDINE GLUCONATE 2 % 1 PACK (2 CLOTHS) TOP SCH (21:14)
[2017-05-05 22:17] LABS: MAGNESIUM 2.4 MG/DL (1.5-2.5); RETIC % 10.8 % (0.4-3.0)
[2017-05-05 22:18] LABS: REVIEW FLAG FINAL
[2017-05-05] MEDS ORDERED: oxyCODONE/ACETAMINOPHEN 5 MG/325 MG TAB PO PRN (22:30)
[2017-05-05] MEDS: MORPHINE SULFATE 2 MG/ML INJ IV PUSH PRN (23:53)
[2017-05-05] MEDS: ONDANSETRON HCL 4 MG/2 ML VIAL IV PUSH PRN (23:53)
[2017-05-05] MEDS: SODIUM CHLORIDE 0.9% FLUSH 10 ML FLUSH IV FLUSH SCH (23:59)
[2017-05-06] VITALS (16 sets, daily range): BP systolic 124–158; BP diastolic 56–68; PULSE 75–142; RESP 14–29; TEMP 97.8–98.7; O2SAT 99–100
[2017-05-06] MEDS ORDERED: cloNIDine HCL 0.3 MG/24 HR PATCH T-DERMAL SCH (03:00)
[2017-05-06] MEDS: PANTOPRAZOLE INJ 80 MG in SODIUM CHLORIDE 0.9% INJ 100 ML IV SCH ×3 (03:39→16:19)
[2017-05-06] MEDS: FERROUS SULFATE 325 MG (65 MG ELEMENTAL IRON) TAB PO SCH ×3 (03:43→19:46)
--- NOTE | 2017-05-06 07:03 | HHI.CCPN ---
Subjective Remarks/Hospital Course History of Present Illness 77-year-old female with past medical history of paroxysmal atrial fibrillation on chronic anticoagulation with Xarelto, hypertension, rheumatoid arthritis on disease modifying therapy , osteoarthritis, prior smoking history who presents to [facility] emergency department with chief complaint of shortness of breath and dyspnea on exertion for the last 2-3 weeks. She has not had any associated chest pain, cough, hemoptysis. She was found to have hgb 4 today with prior hgb 10.1 on 04/15/17. She states she has had melena stools for about 2-3 weeks. Typically she has had about 2 melena stools every morning. Over the last 24 hours the stools have increased and she had 2 yesterday morning and 3 yesterday evening. She hasn't had any vomiting until she vomited once today, no coffee grounds or BRB. She has had anorexia for about 3 weeks but denies weight loss or night sweats. No fever, abdominal pain, back pain, fall. She has no prior history of GI bleeding. No prior colonoscopy or EGD and has never seen a tightening machine operator. No liver disease or significant EtOH hx. She has been on xarelto for 2 years and reports medication compliance. She is chronically on celebrex for several years for arthritis. She is also on prednisone 4 mg qod. She is on methotrexate and Humira for RA. Her only recent medication change is the discontinuation of Fosamax and start of Prolia 2 months ago,. She is tachycardic in 108 on arrival but has been normotensive. In the ED she received Kcentra 50 units/kg, Protonix drip. 3 units packed red cells have been ordered. Subjective: 05/06: Tmax 99.2. No acute events overnight. No nausea or vomiting . No melanotic stools overnight .Currently 3rd unit of packed red blood cells infusing, heart rate 80s. Objective Vital Signs Date Time Temp Pulse Resp B/P (MAP) Pulse Ox O2 Delivery O2 Flow Rate FiO2 05/06/17 06:00 78 05/06/17 04:09 97.8 26 139/65 100 05/05/17 20:26 Nasal Cannula 3.00 Intake and Output 05/06/17 05/06/17 05/07/17 08:00 16:00 00:00 Intake Total 904 ml Balance 904 ml Result Diagram: 05/05/17 1700 05/05/17 1700 Other Results Laboratory Tests Test 05/05/17 17:17 Blood Gas Puncture Site RT RADIAL Blood Gas Patient Temperature 98.6 Blood Gas HCO3 20 mmol/L (22-26) Blood Gas Base Excess -3.5 mmol/L (-2-2) Blood Gas Oxygen Saturation 98 % (90-100) Arterial Blood pH 7.46 (7.380-7.420) Arterial Blood Partial Pressure CO2 28 mmHg (38-42) Arterial Blood Partial Pressure O2 138 mmHG (61-120) Arterial Blood Oxygen Content 5.5 Vol % (12.0-20.0) Arterial Blood Carboxyhemoglobin 2.6 % (0-4) Arterial Blood Methemoglobin 0.4 % (0-2) Blood Gas Hemoglobin 3.8 G/DL (12.0-16.0) Oxygen Delivery Device NASAL CANNULA Blood Gas Liter Flow 4 L/M Imaging Last Impressions Chest X-Ray 05/05/17 1723 Signed Impressions: Service Date/Time: Friday, May 05, 2017 17:37 - CONCLUSION: The lungs are clear. Ulices Lopez MD Objective Remarks GENERAL: Well-developed well-nourished chronically ill-appearing debilitated female SKIN: Warm and dry. HEAD: Atraumatic. Normocephalic. EYES: Pupils equal and round. No scleral icterus. Extraocular movement intact ENT: No nasal bleeding or discharge. Mucous membranes pink and moist. NECK: Trachea midline. No JVD. CARDIOVASCULAR: Regular rate and rhythm, sinus rhythm on the monitor. No murmurs rubs or gallops. RESPIRATORY: Bilateral chest excursion No accessory muscle use. Clear to auscultation bilaterally. No wheezes Rales or rhonchi. GASTROINTESTINAL: Abdomen soft, obese, non-tender, nondistended. Normoactive bowel sounds. No costovertebral angle tenderness MUSCULOSKELETAL: Extremities without clubbing, cyanosis. There is trace pedal edema. Chronic deformities of feet and hands. Limited range of motion noted right upper extremity NEUROLOGICAL: GCS 15 Awake and alert. No obvious cranial nerve deficits. Motor grossly within normal limits. Normal speech. A/P Problem List: (1) Acute blood loss anemia ICD Code: D62 - Acute posthemorrhagic anemia Status: Acute (2) Melena ICD Code: K92.1 - Melena Status: Acute (3) Iron deficiency anemia ICD Code: D50.9 - Iron deficiency anemia, unspecified (4) HLD (hyperlipidemia) ICD Code: E78.5 - Hyperlipidemia, unspecified Status: Chronic (5) HTN (hypertension) ICD Code: I10 - Essential (primary) hypertension Status: Chronic (6) Paroxysmal atrial fibrillation ICD Code: I48.0 - Paroxysmal atrial fibrillation Status: Chronic (7) Anticoagulated by anticoagulation treatment ICD Code: Z79.01 - jail (current) use of anticoagulants Status: Chronic (8) Osteoarthritis ICD Code: M19.90 - Unspecified osteoarthritis, unspecified site Status: Chronic (9) Depression ICD Code: F32.9 - Major depressive disorder, single episode, unspecified Status: Chronic (10) Rheumatoid arthritis involving multiple sites ICD Code: M06.9 - Rheumatoid arthritis involving multiple sites Status: Chronic (11) GI bleed ICD Code: K92.2 - Gastrointestinal hemorrhage, unspecified Status: Acute (12) Dyspnea ICD Code: R06.00 - Dyspnea, unspecified Status: Acute (13) Immunocompromised patient ICD Code: D84.9 - Immunodeficiency, unspecified Status: Chronic (14) Current chronic use of systemic steroids ICD Code: Z79.52 - jail (current) use of systemic steroids Status: Chronic (15) HOLLEY (acute kidney injury) ICD Code: N17.9 - Acute kidney failure, unspecified Status: Acute (16) CKD (chronic kidney disease) stage 3, GFR 30-59 ml/min ICD Code: N18.3 - Chronic kidney disease, stage 3 (moderate) Status: Chronic (17) Tobacco abuse, in remission ICD Code: F17.201 - Nicotine dependence, unspecified, in remission Status: Chronic Assessment and Plan NEURO: Chronic pain related to rheumatoid arthritis Depression Hold NSAID due to GI bleeding and HOLLEY Continue Lexapro 10 mg by mouth daily Oxycodone 5/325 one by mouth every 4 hours as needed for pain RESP: Dyspnea likely secondary to symptomatic anemia-resolved Prior history of tobacco abuse Chest x-ray is clear. Nasal cannula wean as tolerated Bronchodilators if needed CV: Paroxysmal Atrial fibrillation on chronic anticoagulation with xarelto Hyperlipidemia Hypertension Hold statin/fenofibrate for now. Hold xarelto due to bleeding. Catapres 0.3 mg patch weekly No known history of CHF. Obtain Echo GI: Melena Likely Upper GI bleeding, multiple risk factors for PUD. Maintain nothing by mouth status No prior GI workup. No h/o liver disease Protonix 8 mg/hour Serial hemoglobin every 6 hours Consult [id number] recommendations Zofran as needed for nausea FEN/RENAL: HOLLEY overlying CKD stage III Monitor urine output. Monitor BMP. Monitor electrolytes and replace as indicated per ICU electrolyte replacement protocol. ID: Monitor for signs and symptoms of infection HEME: Acute blood loss anemia Iron deficiency Chronic anticoagulation with Xarelto for atrial fibrillation Blood loss has likely been gradual over couple weeks. Transfuse 3 units PRBC now. Keep 4 units on hold. Hold Xarelto. Received K Centra 50 units per KG IV in the emergency department 05/05. Ferrous sulfate 325 mill grams by mouth twice a day RHEUMATOLOGY: Rheumatoid arthritis Osteoarthritis Hold Humira every other week. Hold methotrexate 15 mg every Friday . Prednisone are per discussion below Her screen and cyclone repairer is Dr. Pradip Presley ENDO: Chronic steroid use On prednisone 4 mg po qod. Has been on chronic steroids for years for RA. Hold currently due to GI bleeding but will likely need to resume. Hydrocortisone 50 mg IV q12 hours while acutely ill, increase if symptomatic adrenal insufficiency. PROPH: SCD for DVT prophylaxis. Pharmacologic DVT prophylaxis contraindicated due to GI bleeding with acute life-threatening anemia. Protonix drip as per above ACCESS: Peripheral IV providing adequate access at this time. Central line if indicated Discussed with patient and PLANT OPERATIONS MANAGER at bedside Full code Level 3 Physician Daria Wiseman Problem Qualifiers (1) Iron deficiency anemia: Qualified Codes: D50.0 - Iron deficiency anemia secondary to blood loss ( chronic) (2) Osteoarthritis: (3) GI bleed: Qualified Codes: K92.2 - Gastrointestinal hemorrhage, unspecified (4) Dyspnea: Qualified Codes: R06.02 - Shortness of breath Daria Wiseman MD May 06, 2017 07:03
[2017-05-06] MEDS: ESCITALOPRAM OXALATE 10 MG TAB PO SCH (08:02)
[2017-05-06] MEDS: DOCUSATE SODIUM 50 MG/SENNA 8.6 MG TAB PO SCH ×2 (08:02→19:46)
[2017-05-06] MEDS: SODIUM CHLOR 0.9% 1000 ML INJ 1,000 ML IV SCH ×2 (08:02→22:25)
[2017-05-06] MEDS: SODIUM CHLORIDE 0.9% FLUSH 10 ML FLUSH IV FLUSH SCH ×2 (08:02→19:46)
[2017-05-06 08:13] LABS: ALT (GPT) 23 U/L (10-53); ANION GAP 8 MEQ/L (5-15); AST (GOT) 25 U/L (15-37); BICARBONATE 24.2 MEQ/L (21.0-32.0); BLOOD UREA NITROGEN 20 MG/DL (7-18); CHLORIDE 110 MEQ/L (98-107); GLOMERULAR FILTRATION RATE 53 ML/MIN (>89); POTASSIUM 3.7 MEQ/L (3.5-5.1); SODIUM (NA) 142 MEQ/L (136-145)
[2017-05-06 08:16] LABS: ALKALINE PHOSPHATASE 47 U/L (45-117); HDL CHOLESTEROL 27.2 MG/DL (40.0-60.0); LDL CHOLESTEROL 37 MG/DL (0-99); TOTAL BILIRUBIN ADULT 0.8 MG/DL (0.2-1.0)
--- NOTE | 2017-05-06 09:04 | PD.CONS ---
HPI History of Present Illness This is a 77 year old female presented to the emergency room with generalized weakness and shortness of breath. Onset of symptoms was approximately 3 weeks ago which also included some generalized abdominal pain and dark stools. Patient states she also had a infected tooth lower left #20 and was seen for treatment regimen 3-4 weeks ago. Patient has a significant history of atrial fibrillation and has been on Xarelto; also has rheumatoid arthritis managed with Methotrexate, Prednisone and Humira. Patient also notes anorexia for the past 3 weeks, nausea and vomiting 2-3 weeks ago. Patient states that she consumes alcohol at least 1 time a week. Currently she is awake , alert, and appears to be answering questions appropriately. She has no history of GI workup or testing. Patient's currently being managed in the intensive care setting on a Protonix drip, she has received 3 units of packed RBCs. Currently labs are pending for review. (Caroline Mccloud) PFSH Past Medical History Atrial fibrillation chronic and which with Xarelto Rheumatoid arthritis Claustrophobia Hypertension Chronic kidney disease stage III EtOH dependence Previous tobacco use (Caroline Mccloud) Coded Allergies: No Known Allergies (Verified Allergy, Unknown, 05/05/17) Medications Administered Medications Medications (Trade) Dose Ordered Sig/Edinson Route PRN Reason Start Time Stop Time Status Last Admin Dose Admin Pantoprazole Sodium 80 mg/ Sodium Chloride 100 ml @ 10 mls/hr CONTINUOUS IV 05/05/17 17:30 05/06/17 03:39 Sodium Chloride 250 ml @ 15 mls/hr ONCE ONCE IV 05/05/17 17:30 05/06/17 10:09 05/05/17 18:21 Sodium Chloride 1,000 ml @ 84 mls/hr [id number] IV 05/05/17 20:00 05/06/17 08:02 Sodium Chloride (NS Flush) 2 ml BID IV FLUSH 05/05/17 21:00 05/06/17 08:02 Ondansetron HCl (Zofran Inj) 4 mg Q6H PRN IV PUSH NAUSEA OR VOMITING 05/05/17 19:15 05/05/17 23:53 Chlorhexidine Gluconate (Chlorhexidine 2% Cloth) 3 pack Taper DAILY@04 TOP 05/06/17 04:00 05/02/18 03:59 05/05/17 21:14 Pantoprazole Sodium 80 mg/ Sodium Chloride 100 ml @ 10 mls/hr Q10H IV 05/05/17 20:19 05/05/17 21:00 Morphine Sulfate (Morphine Inj) 2 mg Q3H PRN IV PUSH BREAKTHROUGH PAIN 05/05/17 22:30 05/05/17 23:53 Ferrous Sulfate (Ferrous Sulfate) 325 mg BID PO 05/06/17 01:15 05/06/17 08:02 Clonidine (Catapres-Tts 0.3 Mg Patch.7d) 0.3 patch Q7D T-DERMAL 05/06/17 03:00 05/06/17 06:45 Escitalopram Oxalate (Lexapro) 10 mg DAILY PO 05/06/17 09:00 05/06/17 08:02 Social History Currently patient is lives in her home with her Previous tobacco use 20 years, has been quit for approximately 30 years Current EtOH dependence/abuse at least 1 time a week, beer, wine, mixed drinks (Caroline Mccloud) Review of Systems Constitutional: COMPLAINS OF: Fatigue, Change in appetite Respiratory: COMPLAINS OF: Shortness of breath Gastrointestinal: COMPLAINS OF: Abdominal pain (right upper quadrant), Black stools (3 weeks ago), Nausea, Vomiting (2-3 weeks ago) Musculoskeletal: COMPLAINS OF: Joint pain, Stiffness (significant history of RA ), Joint Swelling (Caroline Mccloud) GI Exam Vitals I&O Vital Signs Date Time Temp Pulse Resp B/P (MAP) Pulse Ox O2 Delivery O2 Flow Rate FiO2 05/06/17 08:00 98.7 81 18 158/68 (98) 100 05/06/17 08:00 100 Nasal Cannula 2.00 05/06/17 08:00 81 05/06/17 06:00 78 05/06/17 04:09 97.8 77 26 139/65 100 05/06/17 04:00 97.9 77 22 139/65 (89) 100 05/06/17 04:00 77 05/06/17 02:00 77 05/06/17 01:11 98.3 75 18 137/63 100 05/06/17 01:03 98.2 79 29 137/63 100 05/06/17 00:00 98.0 80 15 150/67 (94) 100 05/06/17 00:00 80 05/05/17 22:17 99.2 85 28 145/63 100 05/05/17 22:00 96 05/05/17 21:12 87 05/05/17 21:00 85 21 155/68 (97) 100 05/05/17 20:26 94 Nasal Cannula 3.00 05/05/17 19:54 98.3 102 20 130/87 (101) 100 05/05/17 19:54 100 Nasal Cannula 2.00 05/05/17 19:43 05/05/17 19:14 96 18 120/54 (76) 100 Nasal Cannula 3.00 05/05/17 17:28 95 Nasal Cannula 3.00 05/05/17 17:28 97.8 88 20 138/57 (84) 98 Nasal Cannula 3.00 05/05/17 17:19 108 24 100 Nasal Cannula 3.00 05/05/17 17:11 97.8 108 22 138/57 (84) 90 I/O 05/05/17 05/05/17 05/05/17 05/06/17 05/06/17 05/06/17 07:00 15:00 23:00 07:00 15:00 23:00 Intake Total 135 ml 1360 ml Balance 135 ml 1360 ml Intake IV Total 35 ml Packed Cells 960 ml Blood Product IV Normal Saline Flush 100 ml 400 ml # Voids 5 Laboratory Test 05/05/17 17:00 05/05/17 17:17 05/05/17 20:30 05/06/17 07:17 White Blood Count 10.9 TH/MM3 Red Blood Count 1.37 MIL/MM3 Hemoglobin 4.0 GM/DL Hematocrit 12.6 % Mean Corpuscular Volume 91.6 FL Mean Corpuscular Hemoglobin 29.4 PG Mean Corpuscular Hemoglobin Concent 32.1 % Red Cell Distribution Width 22.2 % Platelet Count 392 TH/MM3 Mean Platelet Volume 8.0 FL Neutrophils (%) (Auto) 63.5 % Lymphocytes (%) (Auto) 25.4 % Monocytes (%) (Auto) 10.6 % Eosinophils (%) (Auto) 0.1 % Basophils (%) (Auto) 0.4 % Neutrophils # (Auto) 6.9 TH/MM3 Lymphocytes # (Auto) 2.8 TH/MM3 Monocytes # (Auto) 1.2 TH/MM3 Eosinophils # (Auto) 0.0 TH/MM3 Basophils # (Auto) 0.0 TH/MM3 CBC Comment AUTO DIFF Differential Comment AUTO DIFF CONFIRMED Platelet Estimate NORMAL Platelet Morphology Comment NORMAL Reticulocyte Count 10.8 % Absolute Reticulocyte Count 151.0 MIL/L Haptoglobin 185 MG/DL Prothrombin Time 14.0 SEC Prothromb Time International Ratio 1.3 RATIO Activated Partial Thromboplast Time 19.2 SEC Blood Urea Nitrogen 24 MG/DL 20 MG/DL Creatinine 1.21 MG/DL 1.01 MG/DL Random Glucose 120 MG/DL 112 MG/DL Total Protein 6.0 GM/DL 6.2 GM/DL Albumin 2.8 GM/DL 2.9 GM/DL Calcium Level 8.1 MG/DL 7.9 MG/DL Alkaline Phosphatase 40 U/L 47 U/L Aspartate Amino Transf (AST/SGOT) 23 U/L 25 U/L Alanine Aminotransferase (ALT/SGPT) 20 U/L 23 U/L Total Bilirubin 0.3 MG/DL 0.8 MG/DL Sodium Level 142 MEQ/L 142 MEQ/L Potassium Level 4.0 MEQ/L 3.7 MEQ/L Chloride Level 111 MEQ/L 110 MEQ/L Carbon Dioxide Level 18.9 MEQ/L 24.2 MEQ/L Anion Gap 12 MEQ/L 8 MEQ/L Estimat Glomerular Filtration Rate 43 ML/MIN 53 ML/MIN Phosphorus Level 2.8 MG/DL Magnesium Level 2.4 MG/DL Iron Level 6 MCG/DL Total Iron Binding Capacity 472 MCG/DL Percent Iron Saturation 1.3 % Lactate Dehydrogenase 219 U/L Troponin I 0.02 NG/ML B-Type Natriuretic Peptide 121 PG/ML Vitamin B12 Level 530 PG/ML Folate 5.7 NG/ML Blood Gas Puncture Site RT RADIAL Blood Gas Patient Temperature 98.6 Blood Gas HCO3 20 mmol/L Blood Gas Base Excess -3.5 mmol/L Blood Gas Oxygen Saturation 98 % Arterial Blood pH 7.46 Arterial Blood Partial Pressure CO2 28 mmHg Arterial Blood Partial Pressure O2 138 mmHG Arterial Blood Oxygen Content 5.5 Vol % Arterial Blood Carboxyhemoglobin 2.6 % Arterial Blood Methemoglobin 0.4 % Blood Gas Hemoglobin 3.8 G/DL Oxygen Delivery Device NASAL CANNULA Blood Gas Liter Flow 4 L/M Nasal Screen MRSA (PCR) MRSA DETECTED Triglycerides Level 158 MG/DL Cholesterol Level 96 MG/DL LDL Cholesterol 37 MG/DL HDL Cholesterol 27.2 MG/DL Cholesterol/HDL Ratio 3.52 RATIO Physical Examination HEENT: Pupils round and reactive to light; normocephalic; atraumatic; no jaundice. Oral cavity dry, L mucous membranes NECK: Neck is supple, no JVD, no lymphadenopathy. CHEST: Chest is clear to anteriorly and posteriorly without rales or rhonchi CARDIAC: Regular rate and rhythm with no murmur gallop or rubs. ABDOMEN: Soft, nondistended, I'll tenderness right upper quadrant to light palpation; no hepatosplenomegaly; bowel sounds are soft /present in all four quadrants. EXTREMITIES: Mild extremity clubbing, cyanosis, or edema. SKIN: Pale ,no rash; no jaundice. VARNISH BLENDER: No focal deficits; alert and oriented times three. (Caroline Mccloud) Assessment and Plan Assessment: (1) Acute blood loss anemia ICD Codes: D62 - Acute posthemorrhagic anemia Status: Acute (2) HTN (hypertension) ICD Codes: I10 - Essential (primary) hypertension Status: Chronic (3) HOLLEY (acute kidney injury) ICD Codes: N17.9 - Acute kidney failure, unspecified Status: Acute (4) CKD (chronic kidney disease) stage 3, GFR 30-59 ml/min ICD Codes: N18.3 - Chronic kidney disease, stage 3 (moderate) Status: Chronic (5) Immunocompromised patient ICD Codes: D84.9 - Immunodeficiency, unspecified Status: Chronic (6) Rheumatoid arthritis ICD Codes: M06.9 - Rheumatoid arthritis, unspecified Plan: Acute blood loss anemia, stabilize with packed RBCs in the intensive care setting, monitor hemoglobin and hematocrit over the next 12-24 hours until stable, greater than 7. Consider EGD/colonoscopy in a.m., hold Xarelto, and RA drugs for now. Monitor vital signs including heart rate/85, currently sinus rhythm. History of atrial fibrillation Plan discussed with Dr. Dior. Monitor for any melenic stools. Hemoglobin and hematocrit every 6 hours times the next 24 hours and review. Maintain patient on Protonix drip at least for the next 24 hours. Iron deficiency anemia, currently receiving packed RBCs, monitor labs Acute kidney injury with chronic kidney disease, rheumatoid arthritis/ immunocompromise, and other comorbidities will be monitored per companion caregiver. History of EtOH abuse and dependence will be monitored for any altered mental status per companion caregiver. Patient is full code full aggressive care per her wishes Thank you very much for the consult (Caroline Mccloud) Physician Comments Seen and examined with DEBORAH. EGD/Colonoscopy planned for tomorrow. Hold anticoagulation for now. Will follow. Thank you (Juan Dior MD) Carolnie Mccloud May 06, 2017 09:04 Juan Dior MD May 06, 2017 15:37
[2017-05-06 09:28] LABS: AUTOMATED NEUTROPHIL # 10.9 TH/MM3 (1.8-7.7); BASOPHIL % 0.2 % (0.0-2.0); EOSINOPHIL % 0.2 % (0.0-4.0); HEMATOCRIT 25.6 % (35.0-46.0); HEMO FLAGS DIFF FINAL; LYMPHOCYTE # 1.8 TH/MM3 (1.0-4.8); MEAN CELL VOLUME 86.9 FL (80.0-100.0); MEAN CORPUSCULAR HEMOGLOBIN 27.9 PG (27.0-34.0); MEAN CORPUSCULAR HGB CONC 32.1 % (32.0-36.0); MONO % 7.6 % (0.0-8.0); PLATELET COUNT 322 TH/MM3 (150-450); RED BLOOD COUNT 2.95 MIL/MM3 (4.00-5.30); RED CELL DISTRIBUTION WIDTH 18.6 % (11.6-17.2); WHITE BLOOD COUNT 13.8 TH/MM3 (4.0-11.0)
[2017-05-06] MEDS: oxyCODONE/ACETAMINOPHEN 5 MG/325 MG TAB PO PRN ×2 (12:53→19:03)
[2017-05-06] MEDS: MORPHINE SULFATE 2 MG/ML INJ IV PUSH PRN ×2 (13:05→19:47)
[2017-05-06] MEDS ORDERED: DILTIAZEM HCL 25 MG/5 ML VIAL IV PUSH ONE (13:45)
[2017-05-06] MEDS: DILTIAZEM INJ 125 MG in SODIUM CHLORIDE 0.9% INJ 100 ML IV PRN (14:02)
[2017-05-06 15:40] LABS: HEMATOCRIT 23.9 % (35.0-46.0)
[2017-05-06 15:44] LABS: REVIEW FLAG FINAL
[2017-05-06] MEDS ORDERED: PEG (High)/E-LYTE SOLN 4000 ML BTL PO ONE (16:00)
--- NOTE | 2017-05-06 18:44 | EKG ---
Date Performed: 05/05/2017 Time Performed: 17:26:08 PTAGE: 77 years EKG: Normal Sinus rhythm Atrial premature complex PREVIOUS TRACING : 11/24/2014 10.14 Otherwise, no change from the prior tracing. DOCTOR: Elvis Allen Interpretating Date/Time 05/06/2017 18:44:19
--- NOTE | 2017-05-06 19:04 | EKG ---
Date Performed: 05/06/2017 Time Performed: 07:03:53 PTAGE: 77 years EKG: Sinus rhythm WITH OCCASIONAL SUPRAVENTRICULAR PREMATURE COMPLEXES Since previous tracing, no significant change n oted BORDERLINE ECG PREVIOUS TRACING : 05/05/2017 17.26 DOCTOR: Rayo Topete Interpretating Date/Time 05/06/2017 19:03:52
[2017-05-06 22:20] LABS: HEMATOCRIT 24.2 % (35.0-46.0); REVIEW FLAG FINAL
[2017-05-07] VITALS (14 sets, daily range): BP systolic 109–147; BP diastolic 50–70; PULSE 76–125; RESP 17–26; TEMP 97.8–98.5; O2SAT 98–100
[2017-05-07] MEDS: PANTOPRAZOLE INJ 80 MG in SODIUM CHLORIDE 0.9% INJ 100 ML IV SCH ×3 (00:17→22:19)
[2017-05-07] MEDS: ONDANSETRON HCL 4 MG/2 ML VIAL IV PUSH PRN (00:28)
[2017-05-07] MEDS: CHLORHEXIDINE GLUCONATE 2 % 1 PACK (2 CLOTHS) TOP SCH (04:00)
[2017-05-07] MEDS: DILTIAZEM INJ 125 MG in SODIUM CHLORIDE 0.9% INJ 100 ML IV PRN (05:38)
[2017-05-07 05:48] LABS: AUTOMATED NEUTROPHIL # 13.4 TH/MM3 (1.8-7.7); BASOPHIL % 0.1 % (0.0-2.0); EOSINOPHIL % 0.2 % (0.0-4.0); HEMATOCRIT 24.9 % (35.0-46.0); HEMO FLAGS DIFF FINAL; LYMPH % 10.1 % (9.0-44.0); LYMPHOCYTE # 1.6 TH/MM3 (1.0-4.8); MEAN CORPUSCULAR HEMOGLOBIN 27.7 PG (27.0-34.0); MEAN CORPUSCULAR HGB CONC 32.1 % (32.0-36.0); MONO % 1.9 % (0.0-8.0); NEUT % 87.7 % (16.0-70.0); PLATELET COUNT 300 TH/MM3 (150-450); RED BLOOD COUNT 2.89 MIL/MM3 (4.00-5.30); RED CELL DISTRIBUTION WIDTH 19.7 % (11.6-17.2); WHITE BLOOD COUNT 15.3 TH/MM3 (4.0-11.0)
[2017-05-07 06:17] LABS: BICARBONATE 20.6 MEQ/L (21.0-32.0); POTASSIUM 3.7 MEQ/L (3.5-5.1)
[2017-05-07 06:36] LABS: CALCIUM-PROTEIN CORRECTED 7.6 MG/DL (8.5-10.1)
[2017-05-07] MEDS: DOCUSATE SODIUM 50 MG/SENNA 8.6 MG TAB PO SCH ×2 (08:15→21:00)
[2017-05-07] MEDS: FERROUS SULFATE 325 MG (65 MG ELEMENTAL IRON) TAB PO SCH ×2 (08:15→21:03)
[2017-05-07] MEDS: SODIUM CHLOR 0.9% 1000 ML INJ 1,000 ML IV SCH (08:15)
[2017-05-07] MEDS: SODIUM CHLORIDE 0.9% FLUSH 10 ML FLUSH IV FLUSH SCH ×2 (08:15→21:03)
[2017-05-07] MEDS: ESCITALOPRAM OXALATE 10 MG TAB PO SCH (08:15)
[2017-05-07 09:30] LABS: HEMATOCRIT 23.9 % (35.0-46.0); REVIEW FLAG FINAL
--- NOTE | 2017-05-07 11:36 | HHI.GIFU ---
Subjective Remarks Resting in bed. Was not able to drink much of the Golytely yesterday. Now sipping on this and has about half of the gallon done. Reports that she had a small bowel movement, but not much. Denies any obvious GI bleeding. Denies any nausea, vomiting, abdominal pain. (Capri Lerma) Objective Vitals I&O Vital Signs Date Time Temp Pulse Resp B/P (MAP) Pulse Ox O2 Delivery O2 Flow Rate FiO2 05/07/17 08:25 125 138/60 05/07/17 08:00 108 05/07/17 08:00 98.0 108 20 138/60 (86) 100 05/07/17 07:00 Nasal Cannula 3.00 05/07/17 06:00 84 05/07/17 05:38 86 151/61 05/07/17 04:00 97.9 91 17 147/67 (93) 100 05/07/17 04:00 91 05/07/17 02:00 83 05/07/17 00:45 96 113/50 05/07/17 00:00 98.5 106 26 113/50 (71) 98 05/07/17 00:00 106 05/06/17 23:00 126 137/58 05/06/17 22:00 85 05/06/17 20:00 82 05/06/17 20:00 97.8 82 17 137/62 (87) 99 05/06/17 19:00 Nasal Cannula 3.00 05/06/17 19:00 99 Nasal Cannula 3.00 05/06/17 19:00 80 155/65 05/06/17 18:00 79 05/06/17 16:00 98.1 80 14 124/56 (78) 100 05/06/17 16:00 80 05/06/17 14:02 145 132/72 05/06/17 14:00 142 05/06/17 12:00 98.2 93 22 126/66 (86) 100 05/06/17 12:00 93 I/O 05/06/17 05/06/17 05/06/17 05/07/17 05/07/17 05/07/17 07:00 15:00 23:00 07:00 15:00 23:00 Intake Total 1360 ml 2007 ml 2867.8 ml Output Total 550 ml Balance 1360 ml 1457 ml 2867.8 ml Intake Oral 2100 ml IV Total 2007 ml 767.8 ml Packed Cells 960 ml Blood Product IV Normal Saline Flush 400 ml Output Urine Total 550 ml # Voids 5 4 4 # Bowel Movements 0 3 Laboratory Laboratory Tests Test 05/06/17 15:17 05/06/17 21:48 05/07/17 05:30 05/07/17 09:13 Hemoglobin 8.3 7.7 8.0 8.0 Hematocrit 23.9 24.2 24.9 23.9 White Blood Count 15.3 Red Blood Count 2.89 Mean Corpuscular Volume 86.0 Mean Corpuscular Hemoglobin 27.7 Mean Corpuscular Hemoglobin Concent 32.1 Red Cell Distribution Width 19.7 Platelet Count 300 Mean Platelet Volume 7.6 Neutrophils (%) (Auto) 87.7 Lymphocytes (%) (Auto) 10.1 Monocytes (%) (Auto) 1.9 Eosinophils (%) (Auto) 0.2 Basophils (%) (Auto) 0.1 Neutrophils # (Auto) 13.4 Lymphocytes # (Auto) 1.6 Monocytes # (Auto) 0.3 Eosinophils # (Auto) 0.0 Basophils # (Auto) 0.0 CBC Comment DIFF FINAL Differential Comment Blood Urea Nitrogen 13 Creatinine 0.82 Random Glucose 109 Total Protein 5.9 Calcium Level 7.0 Sodium Level 143 Potassium Level 3.7 Chloride Level 113 Carbon Dioxide Level 20.6 Anion Gap 9 Estimat Glomerular Filtration Rate 67 Protein Corrected Calcium 7.6 Imaging Last Impressions Chest X-Ray 05/05/17 1723 Signed Impressions: Service Date/Time: Friday, May 05, 2017 17:37 - CONCLUSION: The lungs are clear. Ulices Lopez MD Physical Exam HEENT: Normocephalic; atraumatic; no jaundice. CHEST: Resp. shallow, even. Diminished. CARDIAC: Irregular ABDOMEN: Soft, nondistended, nontender; no hepatosplenomegaly; bowel sounds are present in all four quadrants. EXTREMITIES: No clubbing, cyanosis, or edema. SKIN: Normal; no rash; no jaundice. DENTAL FLOSS PACKER: No focal deficits; lethargic and oriented times three. (Capri Lerma) Assessment and Plan Plan ASSESSMENT: - Severe HALLEY. Iron 6, TIBC 472, Iron Saturation 1.3. S/P 3 units PRBC. HH 8.0 /23.9. Plan was for EGD/Colonoscopy today, but she did not take much of the Golytely yesterday and has only had a small bowel movement. She denies any obvious bleeding such as hematemesis or black tarry stools or red blood in stool. She is on methotrexate and Xarelto. However, she has never had a colonoscopy and had severe anemia with and HH of 4.0/12.6 on admission. Will reprep tomorrow with Magnesium citrate and plan for EGD/Colonoscopy on Friday. - Questionable Melena. Pt denies any black tarry stools. EGD/Colon on Friday. - Leukocytosis. WBC 15.3. CXR clear. Per CCM. - Acute on chronic kidney disease, improved. Creat 0.82, GFR 67. - Paroxysmal atrial fibrillation. Xarelto on hold. Pt concerned about being off of her Xarelto. If attending feels that she absolutely needs this for her afib, then okay to start short acting agent such as heparin or lovenox and hold after MN night. - RA, on methotrexate and Humira at home. - HTN, Hyperlipidemia, OA, Depression per attending. PLAN: - Plan for EGD/Colonoscopy Friday - Clear liquids tomorrow - NPO after MN night - Magnesium citrate 1700 and 1900 with 8oz of water on 05/08 () - D/C protonix gtt - Protonix 40mg po BID - Iron supplements - Monitor HH - Transfuse as necessary - Supportive care - Pt concerned about being off her Xarelto. If attending feels that this is absolutely needed, then okay to start a shorter acting agent such as heparin or lovenox and holding after MN night. Will defer to attending. - Further recommendations to follow based on results of above - Pt seen and examined by Dr. Dior and myself and this note is written on his behalf (Capri Lerma) Physician Comments Seen and examined with DEBORAH, no active bleeding. H/H stable. Unable to do prep yesterday, will continue prep and plan for friday. (Juan Dior MD) Capri Lerma May 07, 2017 11:36 Juan Dior MD May 07, 2017 14:36
--- NOTE | 2017-05-07 12:14 | ECHRPT ---
Indication: Shortness of breath CONCLUSIONS The left ventricular systolic function is low normal with an estimated ejection fraction in the rang e of 50- 55%. Wall thickness is measured at the upper limits of normal. Normal left ventricular size. Hvuen-mu-phif mitral valve regurgitation. Mild mitral annular calcification. There is moderate tricuspid valve regurgitation. The estimated pulmonary arterial pressure is 43.2 mmHg. BP: 139 / 69 HR: 77 Rhythm: Other MEASUREMENTS (Male / Female) Normal Values Technical Quality:Fair 2D ECHO LV Diastolic Diameter PLAX 4.4 cm 4.2 - 5.9 / 3.9 - 5.3 cm LV Systolic Diameter PLAX 3.5 cm IVS Diastolic Thickness 1.1 cm 0.6 - 1.0 / 0.6 - 0.9 cm LVPW Diastolic Thickness 1.1 cm 0.6 - 1.0 / 0.6 - 0.9 cm LV Relative Wall Thickness 0.5 LVOT Diameter 1.7 cm M-MODE Aortic Root Diameter MM 3.0 cm LA Systolic Diameter MM 4.0 cm LA Ao Ratio MM 1.3 AV Cusp Separation MM 1.9 cm DOPPLER LVOT Peak Velocity 133.0 cm/s LVOT Peak Gradient 7.1 mmHg MV Peak Velocity 130.0 cm/s MV Peak Gradient 6.8 mmHg MV Mean Velocity 69.2 cm/s MV Mean Gradient 2.0 mmHg MV Area PHT 2.3 cm MR Peak Velocity 502.0 cm/s MR Peak Gradient 100.8 mmHg TR Peak Velocity 288.0 cm/s TR Peak Gradient 33.2 mmHg Right Atrial Pressure 10.0 mmHg Pulmonary Artery Systolic Pressu 43.2 mmHg Right Ventricular Systolic Press 43.2 mmHg PV Peak Velocity 134.0 cm/s PV Peak Gradient 7.2 mmHg FINDINGS LEFT VENTRICLE The left ventricular systolic function is low normal with an estimated ejection fraction in the rang e of 50- 55%. Wall thickness is measured at the upper limits of normal. Normal left ventricular size. RIGHT VENTRICLE Normal right ventricular size and systolic function. LEFT ATRIUM The left atrial size is normal. RIGHT ATRIUM The right atrial size is normal. ATRIAL SEPTUM Normal atrial septal thickness without atrial level shunting by limited color doppler interrogation. AORTA The aortic root and proximal ascending aorta are normal in size on limited imaging. MITRAL VALVE [id number] mitral valve regurgitation. Mild mitral annular calcification. AORTIC VALVE Trileaflet aortic valve. No aortic valve stenosis or regurgitation. TRICUSPID VALVE There is moderate tricuspid valve regurgitation. The estimated pulmonary arterial pressure is 43.2 mmHg. PULMONARY VALVE No pulmonary valve regurgitation or stenosis. VESSELS The inferior vena cava is normal in size. PERICARDIUM No pericardial effusion. Rayo Topete MD, FACC (Electronically Signed) Final Date:07 May 2017 12:13
--- NOTE | 2017-05-07 13:06 | HHI.CCPN ---
Subjective Remarks/Hospital Course History of Present Illness 77-year-old female with past medical history of paroxysmal atrial fibrillation on chronic anticoagulation with Xarelto, hypertension, rheumatoid arthritis on disease modifying therapy , osteoarthritis, prior smoking history who presents to [facility] emergency department with chief complaint of shortness of breath and dyspnea on exertion for the last 2-3 weeks. She has not had any associated chest pain, cough, hemoptysis. She was found to have hgb 4 today with prior hgb 10.1 on 04/15/17. She states she has had melena stools for about 2-3 weeks. Typically she has had about 2 melena stools every morning. Over the last 24 hours the stools have increased and she had 2 yesterday morning and 3 yesterday evening. She hasn't had any vomiting until she vomited once today, no coffee grounds or BRB. She has had anorexia for about 3 weeks but denies weight loss or night sweats. No fever, abdominal pain, back pain, fall. She has no prior history of GI bleeding. No prior colonoscopy or EGD and has never seen a water quality technician. No liver disease or significant EtOH hx. She has been on xarelto for 2 years and reports medication compliance. She is chronically on celebrex for several years for arthritis. She is also on prednisone 4 mg qod. She is on methotrexate and Humira for RA. Her only recent medication change is the discontinuation of Fosamax and start of Prolia 2 months ago,. She is tachycardic in 108 on arrival but has been normotensive. In the ED she received Kcentra 50 units/kg, Protonix drip. 3 units packed red cells have been ordered. Subjective: 05/06: Tmax 99.2. No acute events overnight. No nausea or vomiting . No melanotic stools overnight .Currently 3rd unit of packed red blood cells infusing, heart rate 80s. 05/07: Afebrile. No melanotic stools overnight. As today late afternoon patient went into A. fib RVR with a rate in the 140's, Cardizem 20 mg IV was bolused followed by Cardizem infusion which has been continued. Patient was previously scheduled for panendoscopy today, however patient was not adequately prepped during the night so subsequent postponement of procedure for the next 48 hours, thus delaying reading it reinitiation of Xarelto. Patient will be initiated on heparin infusion with close monitoring for active signs of bleeding and PTT, as well as serial trending H&H. Heparin will be discontinued 4 hours prior to planned panendoscopy. Objective Vital Signs Date Time Temp Pulse Resp B/P (MAP) Pulse Ox O2 Delivery O2 Flow Rate FiO2 05/07/17 08:25 125 138/60 05/07/17 08:00 98.0 20 100 05/07/17 07:00 Nasal Cannula 3.00 Intake and Output 05/07/17 05/07/17 05/08/17 08:00 16:00 00:00 Intake Total 2867.8 ml Balance 2867.8 ml Result Diagram: 05/07/17 0913 05/07/17 0530 Imaging Last Impressions Chest X-Ray 05/05/17 1723 Signed Impressions: Service Date/Time: Friday, May 05, 2017 17:37 - CONCLUSION: The lungs are clear. Ulices Lopez MD Objective Remarks GENERAL: Well-developed well-nourished chronically ill-appearing debilitated female in no acute distress . SKIN: Warm and dry. HEAD: Atraumatic. Normocephalic. EYES: Pupils equal and round. No scleral icterus. Extraocular movement intact ENT: No nasal bleeding or discharge. Mucous membranes pink and moist. NECK: Trachea midline. No JVD. CARDIOVASCULAR: Regular rate and rhythm, sinus rhythm on the monitor. No murmurs rubs or gallops. RESPIRATORY: Bilateral chest excursion No accessory muscle use. Clear to auscultation bilaterally. No wheezes Rales or rhonchi. GASTROINTESTINAL: Abdomen soft, obese, non-tender, nondistended. Normoactive bowel sounds. No costovertebral angle tenderness MUSCULOSKELETAL: Extremities without clubbing, cyanosis. There is trace pedal edema. Chronic deformities of feet and hands. Limited range of motion noted right upper extremity NEUROLOGICAL: GCS 15 Awake and alert. No obvious cranial nerve deficits. Motor grossly within normal limits. Normal speech. A/P Problem List: (1) Acute blood loss anemia ICD Code: D62 - Acute posthemorrhagic anemia Status: Acute (2) Melena ICD Code: K92.1 - Melena Status: Acute (3) Iron deficiency anemia ICD Code: D50.9 - Iron deficiency anemia, unspecified (4) HLD (hyperlipidemia) ICD Code: E78.5 - Hyperlipidemia, unspecified Status: Chronic (5) HTN (hypertension) ICD Code: I10 - Essential (primary) hypertension Status: Chronic (6) Paroxysmal atrial fibrillation ICD Code: I48.0 - Paroxysmal atrial fibrillation Status: Chronic (7) Anticoagulated by anticoagulation treatment ICD Code: Z79.01 - skilled nursing (current) use of anticoagulants Status: Chronic (8) Osteoarthritis ICD Code: M19.90 - Unspecified osteoarthritis, unspecified site Status: Chronic (9) Depression ICD Code: F32.9 - Major depressive disorder, single episode, unspecified Status: Chronic (10) Rheumatoid arthritis involving multiple sites ICD Code: M06.9 - Rheumatoid arthritis involving multiple sites Status: Chronic (11) GI bleed ICD Code: K92.2 - Gastrointestinal hemorrhage, unspecified Status: Acute (12) Dyspnea ICD Code: R06.00 - Dyspnea, unspecified Status: Acute (13) Immunocompromised patient ICD Code: D84.9 - Immunodeficiency, unspecified Status: Chronic (14) Current chronic use of systemic steroids ICD Code: Z79.52 - rat exterminator (current) use of systemic steroids Status: Chronic (15) HOLLEY (acute kidney injury) ICD Code: N17.9 - Acute kidney failure, unspecified Status: Acute (16) CKD (chronic kidney disease) stage 3, GFR 30-59 ml/min ICD Code: N18.3 - Chronic kidney disease, stage 3 (moderate) Status: Chronic (17) Tobacco abuse, in remission ICD Code: F17.201 - Nicotine dependence, unspecified, in remission Status: Chronic Assessment and Plan NEURO: Chronic pain related to rheumatoid arthritis Depression Hold NSAID due to GI bleeding and HOLLEY Continue Lexapro 10 mg by mouth daily Oxycodone 5/325 one by mouth every 4 hours as needed for pain RESP: Dyspnea likely secondary to symptomatic anemia-resolved Prior history of tobacco abuse Chest x-ray is clear. Nasal cannula wean as tolerated Bronchodilators if needed CV: Paroxysmal Atrial fibrillation on chronic anticoagulation with xarelto Hyperlipidemia Hypertension Hold statin/fenofibrate for now. Hold xarelto due to bleeding. Start heparin infusion and closely monitor for active signs of bleeding Catapres 0.3 mg patch weekly No known history of CHF. 05/06 Echo-EF 50-55 %, trace MVR, moderate TR, PA pressure 43.2 Her corporate safety manager is Dr. Trinidad GI: Melena Likely Upper GI bleeding, multiple risk factors for PUD. Maintain nothing by mouth status No prior GI workup. No h/o liver disease Management per GI -Protonix 8 mg/hour infusion changed to twice a day dosing Continue Serial hemoglobin every 6 hours Consult gastroenterology-panendoscopy tentatively scheduled for Friday Zofran as needed for nausea FEN/RENAL: HOLLEY overlying CKD stage III Monitor urine output. Monitor BMP. Monitor electrolytes and replace as indicated per ICU electrolyte replacement protocol. ID: Monitor for signs and symptoms of infection HEME: Acute blood loss anemia Iron deficiency Chronic anticoagulation with Xarelto for atrial fibrillation Blood loss has likely been gradual over couple weeks. Transfuse 3 units PRBC now. Keep 4 units on hold. Hold Xarelto. Received K Centra 50 units per KG IV in the emergency department 05/05. Ferrous sulfate 325 mg by mouth twice a day Continue serial H&H. We'll discontinue heparin for active signs of bleeding and or decrease in hemoglobin RHEUMATOLOGY: Rheumatoid arthritis Osteoarthritis Hold Humira every other week. Hold methotrexate 15 mg every Friday . Prednisone are per discussion below- will restart Her cross tie maker is Dr. Pradip Presley ENDO: Chronic steroid use On prednisone 4 mg po qod. Has been on chronic steroids for years for RA. Hold currently due to GI bleeding but will likely need to resume. Hydrocortisone 50 mg IV q12 hours while acutely ill, increase if symptomatic adrenal insufficiency. PROPH: SCD for DVT prophylaxis. Pharmacologic DVT prophylaxis -and will be initiated on heparin infusion secondary to inability to utilize Xarelto at this time for chronic atrial fibrillation, will monitor closely for signs of bleeding ACCESS: Peripheral IV providing adequate access at this time. Central line if indicated Discussed with patient and DENTAL HYGIENE PROFESSOR at bedside Full code Level 3 Physician Daria Wiseman Problem Qualifiers (1) Iron deficiency anemia: Qualified Codes: D50.0 - Iron deficiency anemia secondary to blood loss ( chronic) (2) Osteoarthritis: (3) GI bleed: Qualified Codes: K92.2 - Gastrointestinal hemorrhage, unspecified (4) Dyspnea: Qualified Codes: R06.02 - Shortness of breath Daria Wiseman MD May 07, 2017 13:06
[2017-05-07] MEDS: oxyCODONE/ACETAMINOPHEN 5 MG/325 MG TAB PO PRN (14:39)
[2017-05-07] MEDS: DILTIAZEM HCL 30 MG TAB PO SCH ×2 (14:39→17:30)
[2017-05-07] MEDS ORDERED: AMIODARONE INJ 150 MG in DEXTROSE 5% IN WATER 100ML INJ 100 ML IV ONE ×2 (15:30)
[2017-05-07 16:09] LABS: HEMATOCRIT 24.6 % (35.0-46.0); MEAN CELL VOLUME 87.6 FL (80.0-100.0); MEAN CORPUSCULAR HEMOGLOBIN 28.2 PG (27.0-34.0); MEAN CORPUSCULAR HGB CONC 32.2 % (32.0-36.0); PLATELET COUNT 258 TH/MM3 (150-450); RED BLOOD COUNT 2.81 MIL/MM3 (4.00-5.30); RED CELL DISTRIBUTION WIDTH 19.6 % (11.6-17.2); REVIEW FLAG FINAL; WHITE BLOOD COUNT 14.6 TH/MM3 (4.0-11.0)
[2017-05-07] MEDS: AMIODARONE INJ 450 MG in DEXTROSE 5% IN WATE(EXCEL) INJ 241 ML IV PRN ×4 (16:14→23:09)
[2017-05-07 16:19] LABS: APTT (PATIENT) 22.1 SEC (24.3-30.1); INTERNATIONAL NORMALIZED RATIO 1.2 RATIO
[2017-05-07] MEDS: HEPARIN-D5W 25,000 U/250 ML 250 ML IV PRN (17:30)
[2017-05-07] MEDS: PANTOPRAZOLE SOD 40 MG DELAYED RELEASE TAB PO SCH (21:03)
--- NOTE | 2017-05-07 21:22 | MB ---
cc: FIONA JONES M.D. DATE OF CONSULTATION 05/07/17 REASON FOR CONSULTATION Atrial fibrillation. HISTORY OF PRESENT ILLNESS The patient is a 77-year-old white female with a history of paroxysmal atrial fibrillation, hypertension, hyperlipidemia, rheumatoid arthritis who was admitted with progressively worsening shortness of breath. She was found to be severely anemic and is undergoing GI evaluation. The patient has noted some dark black stools in the last few weeks. Since coming into the hospital her dyspnea has considerably improved. She denies chest pain, dizziness, syncope, near-syncope. Today she has had minimal palpitations. The patient also denies paroxysmal nocturnal dyspnea, pedal edema. PAST MEDICAL HISTORY 1. Hyperlipidemia. 2. Hypertension. 3. Osteoporosis. 4. Paroxysmal atrial fibrillation diagnosed 10/15/2012. 5. Rheumatoid arthritis. PAST SURGICAL HISTORY 1. Hemorrhoidectomy. 2. Left knee replacement. 3. Right knee replacement. MEDICATIONS Her cardiac medications at home: 1. Clonidine 0.3 milligram per 24-hour patch every week. 2. Lipitor 20 milligrams daily. 3. Xarelto 20 milligrams daily. 4. Tricor 145 milligrams daily. ALLERGIES NO KNOWN DRUG ALLERGIES. FAMILY HISTORY Noncontributory. SOCIAL HISTORY The patient is a former smoker. There is no history of alcohol abuse. REVIEW OF SYSTEMS As in the history of present illness otherwise negative or noncontributory. She also denies headache, bright red blood per rectum, fevers, cough, hemoptysis, nausea, vomiting. PHYSICAL EXAMINATION VITAL SIGNS: On physical examination her blood pressure 138/60 with a pulse of 125, respirations 20. GENERAL: In general, she is a well-developed, well-nourished white female in no acute distress. HEENT: Jugular venous pressure is normal. Carotid pulses are 2+ bilaterally and without bruits. CHEST: Examination of the chest reveals clear lung wang. CARDIOVASCULAR: On cardiac examination she has a tachycardiac irregular rhythm without S3 or murmur. ABDOMEN: On abdominal examination she has a soft abdomen. There is minimal diffuse tenderness without rebound or guarding. Bowel sounds are present. EXTREMITIES: Examination of extremities reveals no clubbing, cyanosis or edema. LABORATORY DATA Includes hemoglobin of 4.0 on admission, 8.0 today, platelets 300, WBC 15.3, potassium 3.7, BUN 13, creatinine 0.82, total cholesterol 96, LDL 37, HDL 27, triglycerides 158. IMAGING STUDIES Chest x-ray shows no acute disease. IMPRESSION Recurrent paroxysmal atrial fibrillation in this 77-year-old white female with a history of hypertension, hyperlipidemia, rheumatoid arthritis. At this time she remains in atrial fibrillation with an elevated heart rate. For the most part she is asymptomatic. Echocardiogram today is unremarkable. There is no evidence for acute coronary syndrome. With respect to her thromboembolic risk, it is moderately elevated with her advanced age and history of hypertension. RECOMMENDATIONS 1. Agree with the heparin drip if okay from a GI standpoint. 2. Will start intravenous amiodarone today; consider resuming the intravenous Cardizem. 3. When possible would resume her Xarelto or at least a daily baby aspirin. Fiona Jones MD GHDany/EUSEBIA /3:29 PM /9:10 PM PAULY
[2017-05-07 23:30] LABS: HEMATOCRIT 23.7 % (35.0-46.0); REVIEW FLAG FINAL
[2017-05-08] VITALS (20 sets, daily range): BP systolic 96–140; BP diastolic 53–63; PULSE 72–92; RESP 17–40; TEMP 97.7–98.7; O2SAT 90–100
[2017-05-08] MEDS: DILTIAZEM HCL 30 MG TAB PO SCH ×4 (00:27→16:52)
[2017-05-08] MEDS: RESP: ALBUTEROL 2.5 MG/3 ML NEB (PRN) INH ×3 (00:51→13:05)
[2017-05-08] MEDS: CHLORHEXIDINE GLUCONATE 2 % 1 PACK (2 CLOTHS) TOP SCH (04:00)
[2017-05-08 05:22] LABS: HEMATOCRIT 22.6 % (35.0-46.0); REVIEW FLAG FINAL
[2017-05-08 05:25] LABS: AUTOMATED NEUTROPHIL # 9.5 TH/MM3 (1.8-7.7); BASOPHIL % 0.4 % (0.0-2.0); EOSINOPHIL # 0.2 TH/MM3 (0-0.4); HEMATOCRIT 22.9 % (35.0-46.0); HEMO FLAGS DIFF FINAL; LYMPH % 15.9 % (9.0-44.0); LYMPHOCYTE # 1.9 TH/MM3 (1.0-4.8); MEAN CELL VOLUME 87.6 FL (80.0-100.0); MONO % 3.2 % (0.0-8.0); NEUT % 78.5 % (16.0-70.0); PLATELET COUNT 247 TH/MM3 (150-450); RED BLOOD COUNT 2.62 MIL/MM3 (4.00-5.30); RED CELL DISTRIBUTION WIDTH 19.6 % (11.6-17.2); WHITE BLOOD COUNT 12.1 TH/MM3 (4.0-11.0)
[2017-05-08 05:28] LABS: APTT (PATIENT) 49.2 SEC (24.3-30.1)
[2017-05-08] MEDS: PANTOPRAZOLE INJ 80 MG in SODIUM CHLORIDE 0.9% INJ 100 ML IV SCH ×2 (08:19→16:46)
[2017-05-08] MEDS: PANTOPRAZOLE SOD 40 MG DELAYED RELEASE TAB PO SCH ×2 (09:10→20:37)
[2017-05-08] MEDS: FERROUS SULFATE 325 MG (65 MG ELEMENTAL IRON) TAB PO SCH ×2 (09:10→20:37)
[2017-05-08] MEDS: SODIUM CHLORIDE 0.9% FLUSH 10 ML FLUSH IV FLUSH SCH ×2 (09:10→20:38)
[2017-05-08] MEDS: DOCUSATE SODIUM 50 MG/SENNA 8.6 MG TAB PO SCH ×2 (09:10→20:37)
[2017-05-08] MEDS: SODIUM CHLOR 0.9% 1000 ML INJ 1,000 ML IV SCH (09:10)
[2017-05-08] MEDS: ESCITALOPRAM OXALATE 10 MG TAB PO SCH (09:10)
--- NOTE | 2017-05-08 09:43 | HHI.GIFU ---
Subjective Remarks Resting in bed. No active bleeding. Denies n/v, abdominal pain. D/W patient plan for bowel prep this afternoon and egd/colonoscopy in am. (Capri Lerma) Objective Vitals I&O Vital Signs Date Time Temp Pulse Resp B/P (MAP) Pulse Ox O2 Delivery O2 Flow Rate FiO2 05/08/17 08:16 100 Nasal Cannula 2.00 05/08/17 07:00 79 118/58 05/08/17 06:00 79 05/08/17 04:00 73 05/08/17 04:00 97.7 73 18 96/53 (67) 100 05/08/17 02:00 80 05/08/17 00:00 97.9 75 20 112/58 (76) 100 05/08/17 00:00 75 05/07/17 23:09 79 114/55 05/07/17 22:00 79 05/07/17 21:04 100 Nasal Cannula 2.00 05/07/17 20:00 97.8 76 17 109/52 (71) 100 05/07/17 20:00 76 05/07/17 19:00 100 Nasal Cannula 2.00 05/07/17 19:00 84 121/58 05/07/17 18:00 92 05/07/17 16:14 129 124/70 05/07/17 16:14 129 124/70 05/07/17 16:00 124 05/07/17 16:00 98.5 124 20 124/70 (88) 100 05/07/17 14:00 109 05/07/17 12:00 98.2 125 24 118/59 (78) 100 05/07/17 12:00 125 05/07/17 10:00 108 I/O 05/07/17 05/07/17 05/07/17 05/08/17 05/08/17 05/08/17 07:00 15:00 23:00 07:00 15:00 23:00 Intake Total 2867.8 ml 103 ml 250 ml Balance 2867.8 ml 103 ml 250 ml Intake Oral 2100 ml IV Total 767.8 ml 103 ml 250 ml # Voids 4 5 3 # Bowel Movements 3 2 1 Laboratory Laboratory Tests Test 05/07/17 15:33 05/07/17 22:53 05/08/17 04:44 White Blood Count 14.6 12.1 Red Blood Count 2.81 2.62 Hemoglobin 7.9 7.4 7.3 Hematocrit 24.6 23.7 22.6 Mean Corpuscular Volume 87.6 87.6 Mean Corpuscular Hemoglobin 28.2 28.0 Mean Corpuscular Hemoglobin Concent 32.2 32.0 Red Cell Distribution Width 19.6 19.6 Platelet Count 258 247 Mean Platelet Volume 8.0 8.3 Prothrombin Time 13.0 Prothromb Time International Ratio 1.2 Activated Partial Thromboplast Time 22.1 37.0 49.2 Neutrophils (%) (Auto) 78.5 Lymphocytes (%) (Auto) 15.9 Monocytes (%) (Auto) 3.2 Eosinophils (%) (Auto) 2.0 Basophils (%) (Auto) 0.4 Neutrophils # (Auto) 9.5 Lymphocytes # (Auto) 1.9 Monocytes # (Auto) 0.4 Eosinophils # (Auto) 0.2 Basophils # (Auto) 0.0 CBC Comment DIFF FINAL Differential Comment Imaging Last Impressions Chest X-Ray 05/05/17 7053 Signed Impressions: Service Date/Time: Friday, May 05, 2017 17:37 - CONCLUSION: The lungs are clear. Ulices Lopez MD Physical Exam HEENT: Normocephalic; atraumatic; no jaundice. CHEST: Resp. shallow, even. Mildly labored, but denies sob. Diminished. CARDIAC: Irregular ABDOMEN: Soft, nondistended, nontender; no hepatosplenomegaly; bowel sounds are present in all four quadrants. EXTREMITIES: No clubbing, cyanosis, or edema. SKIN: Normal; no rash; no jaundice. PUBLICATIONS DISTRIBUTION CLERK: No focal deficits; lethargic and oriented times three. (Capri Lerma) Assessment and Plan Plan ASSESSMENT: - Severe HALLEY. Iron 6, TIBC 472, Iron Saturation 1.3. S/P 3 units PRBC. HH 7.3 /22.6. Plan was for EGD/Colonoscopy yesterday, but she did complete bowel prep. No obvious active bleeding. Plan for EGD/Colonoscopy in am. - Questionable Melena. Pt denies any black tarry stools. EGD/Colon in am - Leukocytosis. WBC 12.1. CXR clear. Per CCM. - Acute on chronic kidney disease, improved. Creat 0.82, GFR 67. - Paroxysmal atrial fibrillation. Xarelto on hold. On heparin gtt. Will hold after MN - RA, on methotrexate and Humira at home. - HTN, Hyperlipidemia, OA, Depression per attending. PLAN: - Plan for EGD/Colonoscopy tomorrow - Clear liquids - NPO after MN - Magnesium citrate 1700 and 1900 with 8oz of water - Protonix 40mg po BID - Iron supplements - Monitor HH - Transfuse as necessary - Supportive care - Further recommendations to follow based on results of above - Pt seen and examined by Dr. Dior and myself and this note is written on his behalf (Capri Lerma) Physician Comments Seen and examined with DEBORAH, no bleeding reorted. Egd/colonoscopy planned for tomorrow. (Juan Dior MD) Capri Lerma May 08, 2017 09:43 Juan Dior MD May 08, 2017 11:16
[2017-05-08 12:20] LABS: HEMATOCRIT 22.6 % (35.0-46.0); REVIEW FLAG FINAL
[2017-05-08 12:23] LABS: APTT (PATIENT) 53.1 SEC (24.3-30.1)
--- NOTE | 2017-05-08 13:15 | HHI.CCPN ---
Subjective Remarks/Hospital Course History of Present Illness 77-year-old female with past medical history of paroxysmal atrial fibrillation on chronic anticoagulation with Xarelto, hypertension, rheumatoid arthritis on disease modifying therapy , osteoarthritis, prior smoking history who presents to [facility] emergency department with chief complaint of shortness of breath and dyspnea on exertion for the last 2-3 weeks. She has not had any associated chest pain, cough, hemoptysis. She was found to have hgb 4 today with prior hgb 10.1 on 04/15/17. She states she has had melena stools for about 2-3 weeks. Typically she has had about 2 melena stools every morning. Over the last 24 hours the stools have increased and she had 2 yesterday morning and 3 yesterday evening. She hasn't had any vomiting until she vomited once today, no coffee grounds or BRB. She has had anorexia for about 3 weeks but denies weight loss or night sweats. No fever, abdominal pain, back pain, fall. She has no prior history of GI bleeding. No prior colonoscopy or EGD and has never seen a terrestrial ecologist. No liver disease or significant EtOH hx. She has been on xarelto for 2 years and reports medication compliance. She is chronically on celebrex for several years for arthritis. She is also on prednisone 4 mg qod. She is on methotrexate and Humira for RA. Her only recent medication change is the discontinuation of Fosamax and start of Prolia 2 months ago,. She is tachycardic in 108 on arrival but has been normotensive. In the ED she received Kcentra 50 units/kg, Protonix drip. 3 units packed red cells have been ordered. Subjective: 05/06: Tmax 99.2. No acute events overnight. No nausea or vomiting . No melanotic stools overnight .Currently 3rd unit of packed red blood cells infusing, heart rate 80s. 05/07: Afebrile. No melanotic stools overnight. As today late afternoon patient went into A. fib RVR with a rate in the 140's, Cardizem 20 mg IV was bolused followed by Cardizem infusion which has been continued. Patient was previously scheduled for panendoscopy today, however patient was not adequately prepped during the night so subsequent postponement of procedure for the next 48 hours, thus delaying reading it reinitiation of Xarelto. Patient will be initiated on heparin infusion with close monitoring for active signs of bleeding and PTT, as well as serial trending H&H. Heparin will be discontinued 4 hours prior to planned panendoscopy. 05/08: Afebrile. Patient has been on heparin infusion for approximately 24 hours hemoglobin serially remains stable. No melanotic stools. Patient tolerating clear liquid diet at this time. Plan for bowel prep tonight for GI procedure tomorrow. Patient noted to be slightly tachypnea this afternoon, ABG pending, chest x-ray pending. Patient continues on bronchodilator therapy. Objective Vital Signs Date Time Temp Pulse Resp B/P (MAP) Pulse Ox O2 Delivery O2 Flow Rate FiO2 05/08/17 12:00 80 05/08/17 12:00 98.7 17 121/58 (79) 100 05/08/17 08:16 Nasal Cannula 2.00 Intake and Output 05/08/17 05/08/17 05/09/17 08:00 16:00 00:00 Intake Total 1019 ml Balance 1019 ml Result Diagram: 05/08/17 1203 05/07/17 0530 Imaging Last Impressions Chest X-Ray 05/05/17 1723 Signed Impressions: Service Date/Time: Friday, May 05, 2017 17:37 - CONCLUSION: The lungs are clear. Ulices Lopez MD Objective Remarks BP 121/58 Pulse 79 RR 25- 30 O2 saturation showing 100% on 2 LPM GENERAL: Well-developed well-nourished chronically ill-appearing debilitated female in mild distress SKIN: Warm and dry. HEAD: Atraumatic. Normocephalic. EYES: Pupils equal and round. No scleral icterus. Extraocular movement intact ENT: No nasal bleeding or discharge. Mucous membranes pink and moist. NECK: Trachea midline. No JVD. CARDIOVASCULAR: Regular rate and rhythm, sinus rhythm on the monitor. No murmurs rubs or gallops. RESPIRATORY: Respiratory rate 30 .Bilateral chest excursion No accessory muscle use. Clear to auscultation bilaterally. No wheezes Rales or rhonchi. GASTROINTESTINAL: Abdomen soft, obese, non-tender, nondistended. Normoactive bowel sounds. No costovertebral angle tenderness MUSCULOSKELETAL: Extremities without clubbing, cyanosis. There is trace pedal edema. Chronic deformities of feet and hands. Limited range of motion noted right upper extremity NEUROLOGICAL: GCS 15 Awake and alert. No obvious cranial nerve deficits. Motor grossly within normal limits. Normal speech. A/P Problem List: (1) Acute blood loss anemia ICD Code: D62 - Acute posthemorrhagic anemia Status: Acute (2) Melena ICD Code: K92.1 - Melena Status: Acute (3) Iron deficiency anemia ICD Code: D50.9 - Iron deficiency anemia, unspecified (4) HLD (hyperlipidemia) ICD Code: E78.5 - Hyperlipidemia, unspecified Status: Chronic (5) HTN (hypertension) ICD Code: I10 - Essential (primary) hypertension Status: Chronic (6) Paroxysmal atrial fibrillation ICD Code: I48.0 - Paroxysmal atrial fibrillation Status: Chronic (7) Anticoagulated by anticoagulation treatment ICD Code: Z79.01 - FCI (current) use of anticoagulants Status: Chronic (8) Osteoarthritis ICD Code: M19.90 - Unspecified osteoarthritis, unspecified site Status: Chronic (9) Depression ICD Code: F32.9 - Major depressive disorder, single episode, unspecified Status: Chronic (10) Rheumatoid arthritis involving multiple sites ICD Code: M06.9 - Rheumatoid arthritis involving multiple sites Status: Chronic (11) GI bleed ICD Code: K92.2 - Gastrointestinal hemorrhage, unspecified Status: Acute (12) Dyspnea ICD Code: R06.00 - Dyspnea, unspecified Status: Acute (13) Immunocompromised patient ICD Code: D84.9 - Immunodeficiency, unspecified Status: Chronic (14) Current chronic use of systemic steroids ICD Code: Z79.52 - welding 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 repairer (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) use of systemic steroids Status: Chronic (15) HOLLEY (acute kidney injury) ICD Code: N17.9 - Acute kidney failure, unspecified Status: Acute (16) CKD (chronic kidney disease) stage 3, GFR 30-59 ml/min ICD Code: N18.3 - Chronic kidney disease, stage 3 (moderate) Status: Chronic (17) Tobacco abuse, in remission ICD Code: F17.201 - Nicotine dependence, unspecified, in remission Status: Chronic Assessment and Plan NEURO: Chronic pain related to rheumatoid arthritis Depression Hold NSAID due to GI bleeding and HOLLEY Continue Lexapro 10 mg by mouth daily Oxycodone 5/325 one by mouth every 4 hours as needed for pain RESP: Dyspnea likely secondary to symptomatic anemia-resolved Prior history of tobacco abuse Chest x-ray is clear. Nasal cannula wean as tolerated 05/08-EP chest x-ray Bronchodilators if needed CV: Paroxysmal Atrial fibrillation on chronic anticoagulation with xarelto Hyperlipidemia Hypertension Hold statin/fenofibrate for now. Hold xarelto due to bleeding. Start heparin infusion and closely monitor for active signs of bleeding. We'll hold heparin at 12 midnight for panendoscopy scheduled for 05/09 Catapres 0.3 mg patch weekly No known history of CHF. 05/06 Echo-EF 50-55 %, trace MVR, moderate TR, PA pressure 43.2 Her lan manager is Dr. Trinidad-placed on amiodarone infusion 05/08, management per cardiology GI: Melena Likely Upper GI bleeding, multiple risk factors for PUD. Maintain nothing by mouth status No prior GI workup. No h/o liver disease Management per GI -Protonix 8 mg/hour infusion changed to twice a day dosing Continue Serial hemoglobin every 6 hours Consult gastroenterology-panendoscopy tentatively scheduled for Friday Zofran as needed for nausea FEN/RENAL: HOLLEY overlying CKD stage III Monitor urine output. Monitor BMP. Monitor electrolytes and replace as indicated per ICU electrolyte replacement protocol. ID: Monitor for signs and symptoms of infection HEME: Acute blood loss anemia Iron deficiency Chronic anticoagulation with Xarelto for atrial fibrillation Blood loss has likely been gradual over couple weeks. Transfuse 3 units PRBC now. Keep 4 units on hold. Hold Xarelto. Received K Centra 50 units per KG IV in the emergency department 05/05. Ferrous sulfate 325 mg by mouth twice a day Hemoglobin stable 7.9 Continue serial H&H every 6 hours. We'll discontinue heparin for active signs of bleeding and or decrease in hemoglobin. Discontinue heparin at 12 MN for planned panendoscopy's 05/09 RHEUMATOLOGY: Rheumatoid arthritis Osteoarthritis Hold Humira every other week. Hold methotrexate 15 mg every Friday . Prednisone are per discussion below- will restart Her collector of port is Dr. Pradip Presley ENDO: Chronic steroid use On prednisone 4 mg po qod. Has been on chronic steroids for years for RA. Hold currently due to GI bleeding but will likely need to resume. Hydrocortisone 50 mg IV q12 hours while acutely ill, increase if symptomatic adrenal insufficiency. PROPH: SCD for DVT prophylaxis. Pharmacologic DVT prophylaxis -and will be initiated on heparin infusion secondary to inability to utilize Xarelto at this time for chronic atrial fibrillation, will monitor closely for signs of bleeding ACCESS: Peripheral IV providing adequate access at this time. Central line if indicated Discussed with patient and BAND SEWER at bedside Full code Level 3 Physician Daria Wiseman Problem Qualifiers (1) Iron deficiency anemia: Qualified Codes: D50.0 - Iron deficiency anemia secondary to blood loss ( chronic) (2) Osteoarthritis: (3) GI bleed: Qualified Codes: K92.2 - Gastrointestinal hemorrhage, unspecified (4) Dyspnea: Qualified Codes: R06.02 - Shortness of breath Daria Wiseman MD May 08, 2017 13:15
[2017-05-08 13:16] LABS: BLOOD GAS BASE EXCESS -4.1 mmol/L (-2-2); BLOOD GAS CARBOXYHEMOGLOBIN 1.6 % (0-4); BLOOD GAS HCO3 20 mmol/L (22-26); BLOOD GAS METHEMOGLOBIN 1.3 % (0-2); BLOOD GAS O2 HGB SATURATION 95 % (90-100); BLOOD GAS OXYGEN CONTENT 10.6 Vol % (12.0-20.0); BLOOD GAS PCO2 36 mmHg (38-42); BLOOD GAS PO2 96 mmHg (61-120); BLOOD GAS TOTAL HGB 7.8 G/DL (12.0-16.0); TEMP CORR TO 98.6
[2017-05-08 13:17] LABS: CRITICAL VALUE NO; DRAW SITE RT RADIAL; LITER FLOW 2 L/M; NUMBER OF ARTERIAL PUNCTURES 1; OXYGEN DEVICE NASAL CANNULA; STAT NO; ULNAR PULSE PRESENT
--- NOTE | 2017-05-08 13:54 | RADRPT ---
EXAM DATE/TIME: 05/08/2017 13:14 [facility] COMPARISON: CHEST SINGLE AP, May 05, 2017, 17:37. INDICATIONS : Respiratory disease. MEDICAL HISTORY : A fib. SURGICAL HISTORY : None. ENCOUNTER: Initial ACUITY: 1 week PAIN SCORE: 0/10 LOCATION: Bilateral chest FINDINGS: A single view of the chest demonstrates the lungs to be symmetrically aerated without evidence of mas s, infiltrate or effusion. The cardiomediastinal contours are unremarkable. Right shoulder prosthes is. CONCLUSION: No infiltrates seen. Ulices Lopez MD on May 08, 2017 at 13:52 Board Certified Radiologist. This report was verified electronically.
[2017-05-08] MEDS ORDERED: CALCIUM GLUCONATE INJ 2 GM in DEXTROSE 5% IN WATER 100ML INJ 100 ML IV ONE ×2 (15:00)
[2017-05-08] MEDS: AMIODARONE INJ 450 MG in DEXTROSE 5% IN WATE(EXCEL) INJ 241 ML IV PRN ×2 (15:16)
[2017-05-08] MEDS ORDERED: MAGNESIUM CITRATE SOLN 300 ML BTL PO ONE ×2 (17:00→19:00)
[2017-05-08] MEDS: HEPARIN-D5W 25,000 U/250 ML 250 ML IV PRN (18:38)
[2017-05-08 21:25] LABS: HEMATOCRIT 23.3 % (35.0-46.0); REVIEW FLAG FINAL
[2017-05-09] VITALS (15 sets, daily range): BP systolic 118–151; BP diastolic 56–84; PULSE 66–91; RESP 18–27; TEMP 97.3–98.7; O2SAT 97–100
[2017-05-09] MEDS: CHLORHEXIDINE GLUCONATE 2 % 1 PACK (2 CLOTHS) TOP SCH (00:34)
[2017-05-09] MEDS: DILTIAZEM HCL 30 MG TAB PO SCH ×2 (00:34→06:08)
[2017-05-09 02:55] LABS: HEMATOCRIT 23.2 % (35.0-46.0); REVIEW FLAG FINAL
[2017-05-09 03:06] LABS: APTT (PATIENT) 27.4 SEC (24.3-30.1)
[2017-05-09 03:23] LABS: BICARBONATE 23.6 MEQ/L (21.0-32.0); POTASSIUM 3.6 MEQ/L (3.5-5.1)
[2017-05-09 03:54] LABS: CALCIUM-PROTEIN CORRECTED 7.8 MG/DL (8.5-10.1)
--- NOTE | 2017-05-09 04:47 | RADRPT ---
EXAM DATE/TIME: 05/09/2017 03:28 [facility] COMPARISON: CHEST SINGLE AP, May 08, 2017, 13:14. INDICATIONS : Evaluate for pneumonia- Respiratory failure MEDICAL HISTORY : A-fib SURGICAL HISTORY : None. ENCOUNTER: Subsequent ACUITY: 1 week PAIN SCORE: Non-responsive. LOCATION: Bilateral chest FINDINGS: A single view of the chest demonstrates the lungs to be symmetrically aerated without evidence of mas s, infiltrate or effusion. The cardiomediastinal contours are unremarkable. Osseous structures are intact. There are overlying electrocardiogram leads. Atherosclerotic changes are again noted in the a oh. The patient is status post right shoulder arthroplasty. CONCLUSION: No acute disease. Pradip Hurtado MD on May 09, 2017 at 4:45 Board Certified Radiologist. This report was verified electronically.
[2017-05-09] MEDS: DOCUSATE SODIUM 50 MG/SENNA 8.6 MG TAB PO SCH ×2 (07:42→21:00)
[2017-05-09] MEDS: methylPREDNISolone 4 MG TAB PO SCH (07:42)
[2017-05-09] MEDS: FERROUS SULFATE 325 MG (65 MG ELEMENTAL IRON) TAB PO SCH ×2 (07:42→21:29)
[2017-05-09] MEDS: ESCITALOPRAM OXALATE 10 MG TAB PO SCH (07:42)
[2017-05-09] MEDS: PANTOPRAZOLE SOD 40 MG DELAYED RELEASE TAB PO SCH ×2 (07:42→21:29)
[2017-05-09] MEDS: SODIUM CHLORIDE 0.9% FLUSH 10 ML FLUSH IV FLUSH SCH ×2 (07:43→21:29)
[2017-05-09] MEDS: DILTIAZEM-CD 180 MG CAP ER PO SCH (09:00)
[2017-05-09] MEDS: AMIODARONE 200 MG TAB PO SCH (09:00)
[2017-05-09] MEDS: AMIODARONE INJ 450 MG in DEXTROSE 5% IN WATE(EXCEL) INJ 241 ML IV PRN ×2 (09:09)
[2017-05-09] MEDS ORDERED: *RESP: ALBUTEROL 2.5 MG/3 ML NEB (PRN) PERIprocedural Use ONLY NEB ONE (10:34)
--- NOTE | 2017-05-09 11:38 | HHI.GIFU ---
GI Follow-up Note Consult Follow-up Subjective: Patient laying in bed comfortably, no new complaints except SOB Objective: PHYSICAL EXAMINATION: Vitals signs stable No fever HEENT: Pupils round and reactive to light; normocephalic; atraumatic; no jaundice. Throat is clear. NECK: Neck is supple, no JVD, no lymphadenopathy. CHEST: Chest is clear to auscultation and percussion. CARDIAC: Regular rate and rhythm with no murmur gallop or rubs. ABDOMEN: Soft, nondistended, nontender; no hepatosplenomegaly; bowel sounds are present in all four quadrants. EXTREMITIES: No clubbing, cyanosis, or edema. SKIN: Normal; no rash; no jaundice. SALES DIRECTOR: No focal deficits; alert and oriented times three. Available Data (labs, X- Rays, Procedues) : Last Impressions Chest X-Ray 05/09/17 0600 Signed Impressions: Service Date/Time: Tuesday, May 09, 2017 03:28 - CONCLUSION: No acute disease. Pradip Hurtado MD Laboratory Tests Test 05/07/17 15:33 05/07/17 22:53 05/08/17 04:44 05/08/17 12:03 White Blood Count 14.6 TH/MM3 12.1 TH/MM3 Red Blood Count 2.81 MIL/MM3 2.62 MIL/MM3 Hemoglobin 7.9 GM/DL 7.4 GM/DL 7.3 GM/DL 7.4 GM/DL Hematocrit 24.6 % 23.7 % 22.6 % 22.6 % Mean Corpuscular Volume 87.6 FL 87.6 FL Mean Corpuscular Hemoglobin 28.2 PG 28.0 PG Mean Corpuscular Hemoglobin Concent 32.2 % 32.0 % Red Cell Distribution Width 19.6 % 19.6 % Platelet Count 258 TH/MM3 247 TH/MM3 Mean Platelet Volume 8.0 FL 8.3 FL Prothrombin Time 13.0 SEC Prothromb Time International Ratio 1.2 RATIO Activated Partial Thromboplast Time 22.1 SEC 37.0 SEC 49.2 SEC 53.1 SEC Neutrophils (%) (Auto) 78.5 % Lymphocytes (%) (Auto) 15.9 % Monocytes (%) (Auto) 3.2 % Eosinophils (%) (Auto) 2.0 % Basophils (%) (Auto) 0.4 % Neutrophils # (Auto) 9.5 TH/MM3 Lymphocytes # (Auto) 1.9 TH/MM3 Monocytes # (Auto) 0.4 TH/MM3 Eosinophils # (Auto) 0.2 TH/MM3 Basophils # (Auto) 0.0 TH/MM3 CBC Comment DIFF FINAL Differential Comment Test 05/08/17 13:05 05/08/17 21:10 05/09/17 02:20 Blood Gas Puncture Site RT RADIAL Blood Gas Patient Temperature 98.6 Blood Gas HCO3 20 mmol/L Blood Gas Base Excess -4.1 mmol/L Blood Gas Oxygen Saturation 95 % Arterial Blood pH 7.37 Arterial Blood Partial Pressure CO2 36 mmHg Arterial Blood Partial Pressure O2 96 mmHg Arterial Blood Oxygen Content 10.6 Vol % Arterial Blood Carboxyhemoglobin 1.6 % Arterial Blood Methemoglobin 1.3 % Blood Gas Hemoglobin 7.8 G/DL Oxygen Delivery Device NASAL CANNULA Blood Gas Liter Flow 2 L/M Hemoglobin 7.4 GM/DL 7.4 GM/DL Hematocrit 23.3 % 23.2 % Activated Partial Thromboplast Time 27.4 SEC Blood Urea Nitrogen 8 MG/DL Creatinine 0.68 MG/DL Random Glucose 109 MG/DL Total Protein 5.8 GM/DL Calcium Level 7.1 MG/DL Sodium Level 144 MEQ/L Potassium Level 3.6 MEQ/L Chloride Level 113 MEQ/L Carbon Dioxide Level 23.6 MEQ/L Anion Gap 7 MEQ/L Estimat Glomerular Filtration Rate 84 ML/MIN Protein Corrected Calcium 7.8 MG/DL Allergies Coded Allergies Type Severity Reaction Last Updated Verified No Known Allergies Allergy Unknown 05/05/17 Yes Active Scripts Medications Dose Route/Sig Max Daily Dose Days Date Category Dose Instructions Oxycodone/Acetaminophen 5-325 mg/5Ml (Oxycodone W/ Acetaminophen) 1 Tab Tab 1 Tab PO Q4H PRN 12/21/14 Rx Xarelto 20 Mg Tab (Rivaroxaban) 20 Mg Tab 20 Mg PO HS 11/24/14 Reported Methylprednisolone 4 Mg Tab 4 Mg PO EVERY OTHER DAY 11/24/14 Reported [id number] (Clonidine Hcl) 0.3 Mg/24 Hr Dis 0.3 Mg TD WEEKLY 11/24/14 Reported APPLIES EVERY FRIDAY Humira (Adalimumab) 10 Mg/0.2 Ml Inj 40 Mg INJ EVERY OTHER WEEK 11/24/14 Reported Lexapro (Escitalopram Oxalate) 10 Mg Tab 10 Mg PO DAILY 10/05/12 Reported Rheumatrex (Methotrexate) 2.5 Mg Tab 15 Mg PO Friday09/08/09 Reported 2.5MG 6 TABS ON FRIDAY Tricor (Fenofibrate) 145 Mg Tab 145 Mg PO HS 09/08/09 Reported Lipitor (Atorvastatin Calcium) 20 Mg Tab 20 Mg PO HS 09/08/09 Reported Celebrex (Celecoxib) 200 Mg Cap 200 Mg PO DAILY 09/08/09 Reported ASSESSMENT/PLAN: Pt brought down to the OR for her procedures. Unable to establish IV access. Pt. sent back to [facility]. Dr. Wiseman notified. GI procedures to be rescheduled once IV access established. It was a pleasure seeing Alvina Fontanez. Thank you for this consult. Entered by: Juan Tubbs MD May 09, 2017 11:38
--- NOTE | 2017-05-09 12:53 | HHI.CCPN ---
Subjective Remarks/Hospital Course History of Present Illness 77-year-old female with past medical history of paroxysmal atrial fibrillation on chronic anticoagulation with Xarelto, hypertension, rheumatoid arthritis on disease modifying therapy , osteoarthritis, prior smoking history who presents to [facility] emergency department with chief complaint of shortness of breath and dyspnea on exertion for the last 2-3 weeks. She has not had any associated chest pain, cough, hemoptysis. She was found to have hgb 4 today with prior hgb 10.1 on 04/15/17. She states she has had melena stools for about 2-3 weeks. Typically she has had about 2 melena stools every morning. Over the last 24 hours the stools have increased and she had 2 yesterday morning and 3 yesterday evening. She hasn't had any vomiting until she vomited once today, no coffee grounds or BRB. She has had anorexia for about 3 weeks but denies weight loss or night sweats. No fever, abdominal pain, back pain, fall. She has no prior history of GI bleeding. No prior colonoscopy or EGD and has never seen a stereoplotter operator. No liver disease or significant EtOH hx. She has been on xarelto for 2 years and reports medication compliance. She is chronically on celebrex for several years for arthritis. She is also on prednisone 4 mg qod. She is on methotrexate and Humira for RA. Her only recent medication change is the discontinuation of Fosamax and start of Prolia 2 months ago,. She is tachycardic in 108 on arrival but has been normotensive. In the ED she received Kcentra 50 units/kg, Protonix drip. 3 units packed red cells have been ordered. Subjective: 05/06: Tmax 99.2. No acute events overnight. No nausea or vomiting . No melanotic stools overnight .Currently 3rd unit of packed red blood cells infusing, heart rate 80s. 05/07: Afebrile. No melanotic stools overnight. As today late afternoon patient went into A. fib RVR with a rate in the 140's, Cardizem 20 mg IV was bolused followed by Cardizem infusion which has been continued. Patient was previously scheduled for panendoscopy today, however patient was not adequately prepped during the night so subsequent postponement of procedure for the next 48 hours, thus delaying reading it reinitiation of Xarelto. Patient will be initiated on heparin infusion with close monitoring for active signs of bleeding and PTT, as well as serial trending H&H. Heparin will be discontinued 4 hours prior to planned panendoscopy. 05/08: Afebrile. Patient has been on heparin infusion for approximately 24 hours hemoglobin serially remains stable. No melanotic stools. Patient tolerating clear liquid diet at this time. Plan for bowel prep tonight for GI procedure tomorrow. Patient noted to be slightly tachypnea this afternoon, ABG pending, chest x-ray pending. Patient continues on bronchodilator therapy. 05/09: Early this a.m. patient was noted to have infiltration of her IV located in the right arm. Area was noted to be edematous and reddened, and painful. Previously amiodarone had been infusing. Patient noted to have good capillary refill, movement of her digits, skin warm, no cyanosis noted.Plan for ultrasound of right upper extremity. Vascular access placed to peripheral IVs in the left upper extremity, patient scheduled for panendoscopy this a.m.. Panendoscopy was cancelled secondary to per report no vascular IV access, per anesthesiology" the GOODWILL AMBASSADOR injected medications and the patient did not go to sleep", so both peripheral IVs were deemed to be malfunctioning/not patent. The procedure was canceled. PICC line ordered. The patient remains nothing by mouth, and off heparin infusion at this time in anticipation of procedure possibly being performed later today. Objective Vital Signs Date Time Temp Pulse Resp B/P (MAP) Pulse Ox O2 Delivery O2 Flow Rate FiO2 05/09/17 11:00 84 24 128/60 (82) 99 05/09/17 10:33 98.0 05/09/17 10:33 Nasal Cannula 2 Intake and Output 05/09/17 05/09/17 05/10/17 08:00 16:00 00:00 Intake Total 792 ml Balance 792 ml Result Diagram: 05/09/1721905/09/17219 Other Results Laboratory Tests Test 05/08/17 13:05 Blood Gas Puncture Site RT RADIAL Blood Gas Patient Temperature 98.6 Blood Gas HCO3 20 mmol/L (22-26) Blood Gas Base Excess -4.1 mmol/L (-2-2) Blood Gas Oxygen Saturation 95 % (90-100) Arterial Blood pH 7.37 (7.380-7.420) Arterial Blood Partial Pressure CO2 36 mmHg (38-42) Arterial Blood Partial Pressure O2 96 mmHg (61-120) Arterial Blood Oxygen Content 10.6 Vol % (12.0-20.0) Arterial Blood Carboxyhemoglobin 1.6 % (0-4) Arterial Blood Methemoglobin 1.3 % (0-2) Blood Gas Hemoglobin 7.8 G/DL (12.0-16.0) Oxygen Delivery Device NASAL CANNULA Blood Gas Liter Flow 2 L/M Imaging Last Impressions Chest X-Ray 05/05/17 1723 Signed Impressions: Service Date/Time: Friday, May 05, 2017 17:37 - CONCLUSION: The lungs are clear. Ulices Lopez MD Objective Remarks GENERAL: Well-developed well-nourished chronically ill-appearing debilitated female in no acute distress SKIN: Warm and dry. HEAD: Atraumatic. Normocephalic. EYES: Pupils equal and round. No scleral icterus. Extraocular movement intact ENT: No nasal bleeding or discharge. Mucous membranes pink and moist. NECK: Trachea midline. No JVD. CARDIOVASCULAR: Regular rate and rhythm, sinus rhythm on the monitor. No murmurs rubs or gallops. RESPIRATORY: Respiratory rate 30 .Bilateral chest excursion No accessory muscle use. Clear to auscultation bilaterally. No wheezes Rales or rhonchi. GASTROINTESTINAL: Abdomen soft, obese, non-tender, nondistended. Normoactive bowel sounds. No costovertebral angle tenderness MUSCULOSKELETAL: Extremities without clubbing, cyanosis. There is trace pedal edema. Chronic deformities of feet and hands. Limited range of motion noted right upper extremity. Right upper extremity edematous, painful to touch, good capillary refill gross and fine motor movement of digits intact NEUROLOGICAL: GCS 15 Awake and alert. No obvious cranial nerve deficits. Motor grossly within normal limits. Normal speech. A/P Problem List: (1) Acute blood loss anemia ICD Code: D62 - Acute posthemorrhagic anemia Status: Acute (2) Melena ICD Code: K92.1 - Melena Status: Acute (3) Iron deficiency anemia ICD Code: D50.9 - Iron deficiency anemia, unspecified (4) HLD (hyperlipidemia) ICD Code: E78.5 - Hyperlipidemia, unspecified Status: Chronic (5) HTN (hypertension) ICD Code: I10 - Essential (primary) hypertension Status: Chronic (6) Paroxysmal atrial fibrillation ICD Code: I48.0 - Paroxysmal atrial fibrillation Status: Chronic (7) Anticoagulated by anticoagulation treatment ICD Code: Z79.01 - longterm (current) use of anticoagulants Status: Chronic (8) Osteoarthritis ICD Code: M19.90 - Unspecified osteoarthritis, unspecified site Status: Chronic (9) Depression ICD Code: F32.9 - Major depressive disorder, single episode, unspecified Status: Chronic (10) Rheumatoid arthritis involving multiple sites ICD Code: M06.9 - Rheumatoid arthritis involving multiple sites Status: Chronic (11) GI bleed ICD Code: K92.2 - Gastrointestinal hemorrhage, unspecified Status: Acute (12) Dyspnea ICD Code: R06.00 - Dyspnea, unspecified Status: Acute (13) Immunocompromised patient ICD Code: D84.9 - Immunodeficiency, unspecified Status: Chronic (14) Current chronic use of systemic steroids ICD Code: Z79.52 - terminal operator (current) use of systemic steroids Status: Chronic (15) HOLLEY (acute kidney injury) ICD Code: N17.9 - Acute kidney failure, unspecified Status: Acute (16) CKD (chronic kidney disease) stage 3, GFR 30-59 ml/min ICD Code: N18.3 - Chronic kidney disease, stage 3 (moderate) Status: Chronic (17) Tobacco abuse, in remission ICD Code: F17.201 - Nicotine dependence, unspecified, in remission Status: Chronic Assessment and Plan NEURO: Chronic pain related to rheumatoid arthritis Depression Hold NSAID due to GI bleeding and HOLLEY Continue Lexapro 10 mg by mouth daily Oxycodone 5/325 one by mouth every 4 hours as needed for pain RESP: Dyspnea likely secondary to symptomatic anemia-resolved Prior history of tobacco abuse Chest x-ray is clear. Nasal cannula wean as tolerated 05/08-EP chest x-ray Bronchodilators if needed CV: Paroxysmal Atrial fibrillation on chronic anticoagulation with xarelto Hyperlipidemia Hypertension Hold statin/fenofibrate for now. Hold xarelto due to bleeding. Start heparin infusion and closely monitor for active signs of bleeding. Will hold heparin at 12 midnight for panendoscopy for possible rescheduling today Catapres 0.3 mg patch weekly No known history of CHF. 05/06 Echo-EF 50-55 %, trace MVR, moderate TR, PA pressure 43.2 Dr. Trinidad following placed on amiodarone infusion 05/08, transition to PO management per cardiology GI: Melena Likely Upper GI bleeding, multiple risk factors for PUD. Maintain nothing by mouth status No prior GI workup. No h/o liver disease Management per GI -Protonix 8 mg/hour infusion changed to twice a day dosing Continue Serial hemoglobin every 6 hours- stable at 7.4 GI following-scheduled for panendoscopy, now delayed secondary to lack of IV access Zofran as needed for nausea FEN/RENAL: HOLLEY overlying CKD stage III Monitor urine output. Monitor BMP. Monitor electrolytes and replace as indicated per ICU electrolyte replacement protocol. ID: Monitor for signs and symptoms of infection HEME: Acute blood loss anemia Iron deficiency Chronic anticoagulation with Xarelto for atrial fibrillation Blood loss has likely been gradual over couple weeks. Transfuse 3 units PRBC now. Keep 4 units on hold. Hold Xarelto. Received K Centra 50 units per KG IV in the emergency department 05/05. Ferrous sulfate 325 mg by mouth twice a day Hemoglobin stable 7.9 Continue serial H&H every 6 hours. We'll discontinue heparin for active signs of bleeding and or decrease in hemoglobin. Discontinue heparin at 12 MN for planned panendoscopy's 05/09 RHEUMATOLOGY: Rheumatoid arthritis Osteoarthritis Hold Humira every other week. Hold methotrexate 15 mg every Friday . Prednisone are per discussion below- will restart Her evp head of [employer] strategy is Dr. Pradip Presley ENDO: Chronic steroid use On prednisone 4 mg po qod. Has been on chronic steroids for years for RA. Hold currently due to GI bleeding but will likely need to resume. Hydrocortisone 50 mg IV q12 hours while acutely ill, increase if symptomatic adrenal insufficiency MSK: 05/09 right upper extremity IV infiltration of amiodarone. Obtain ultrasound- F /U results PROPH: SCD for DVT prophylaxis. Pharmacologic DVT prophylaxis -and will be initiated on heparin infusion secondary to inability to utilize Xarelto at this time for chronic atrial fibrillation, will monitor closely for signs of bleeding. (Heparin on hold for panendoscopy) ACCESS: Peripheral IV providing adequate access at this time. Central line if indicated Discussed with dr. Escobedo, patient and FAST FOOD WORKER at bedside( Tabitha) Full code Level 3 Physician Daria Wiseman Problem Qualifiers (1) Iron deficiency anemia: Qualified Codes: D50.0 - Iron deficiency anemia secondary to blood loss ( chronic) (2) Osteoarthritis: (3) GI bleed: Qualified Codes: K92.2 - Gastrointestinal hemorrhage, unspecified (4) Dyspnea: Qualified Codes: R06.02 - Shortness of breath Daria Wiseman MD May 09, 2017 12:53
[2017-05-09 12:54] LABS: HEMATOCRIT 23.7 % (35.0-46.0); REVIEW FLAG FINAL
--- NOTE | 2017-05-09 13:17 | EKG ---
Date Performed: 05/08/2017 Time Performed: 13:54:39 PTAGE: 77 years EKG: Sinus rhythm WITH OCCASIONAL SUPRAVENTRICULAR PREMATURE COMPLEXES NONSPECIFIC T-WAVE ABNORMALITY Since previous t racing, no significant change noted BORDERLINE ECG PREVIOUS TRACING : 05/06/2017 07.03 DOCTOR: Joel Cotton Interpretating Date/Time 05/09/2017 13:15:28
--- NOTE | 2017-05-09 13:23 | HHI.GIFU ---
Subjective Remarks Pt went down for GI procedure, but it was cancelled secondary to no IV access. Pt resting in bed in no distress. Denies any obvious active bleeding. No abdominal pain. Objective Vitals I&O Vital Signs Date Time Temp Pulse Resp B/P (MAP) Pulse Ox O2 Delivery O2 Flow Rate FiO2 05/09/17 11:00 84 24 128/60 (82) 99 05/09/17 10:45 78 23 130/63 (85) 100 05/09/17 10:33 98.0 84 19 129/84 (99) 100 05/09/17 10:33 Nasal Cannula 2 05/09/17 10:33 98.0 84 19 129/84 (99) 100 05/09/17 09:09 71 139/69 05/09/17 08:00 Nasal Cannula 2.00 05/09/17 07:17 100 Nasal Cannula 1.00 05/09/17 06:00 76 05/09/17 04:00 82 05/09/17 04:00 98.5 80 22 145/63 (90) 99 05/09/17 02:00 83 05/09/17 00:04 86 163/67 05/09/17 00:00 98.7 91 27 134/64 (87) 97 05/09/17 00:00 91 05/08/17 22:00 82 05/08/17 20:00 80 05/08/17 20:00 98.7 80 21 121/56 (77) 99 05/08/17 19:10 100 Nasal Cannula 2.00 05/08/17 19:00 100 Nasal Cannula 2.00 05/08/17 18:23 82 129/58 05/08/17 18:00 79 05/08/17 18:00 79 30 100 05/08/17 17:01 83 26 138/63 (88) 98 05/08/17 16:00 98.0 92 40 140/57 (84) 90 05/08/17 16:00 80 05/08/17 15:16 87 132/63 05/08/17 15:15 88 132/63 05/08/17 15:01 86 32 132/63 (86) 96 05/08/17 14:00 81 23 125/60 (81) 92 05/08/17 14:00 81 I/O 11/23/17 1105/08/17 05/09/17 05/09/17 05/09/17 07:00 15:00 23:00 07:00 15:00 23:00 Intake Total 250 ml 1019 ml 1433 ml 792 ml Balance 250 ml 1019 ml 1433 ml 792 ml Intake Oral 500 ml IV Total 250 ml 1019 ml 933 ml 792 ml # Voids 3 1 3 3 # Bowel Movements 1 0 8 Laboratory Laboratory Tests Test 05/08/17 21:10 05/09/17 02:20 05/09/17 12:12 Hemoglobin 7.4 7.4 7.6 Hematocrit 23.3 23.2 23.7 Activated Partial Thromboplast Time 27.4 Blood Urea Nitrogen 8 Creatinine 0.68 Random Glucose 109 Total Protein 5.8 Calcium Level 7.1 Sodium Level 144 Potassium Level 3.6 Chloride Level 113 Carbon Dioxide Level 23.6 Anion Gap 7 Estimat Glomerular Filtration Rate 84 Protein Corrected Calcium 7.8 Imaging Last Impressions Chest X-Ray 05/09/17 0600 Signed Impressions: Service Date/Time: Tuesday, May 09, 2017 03:28 - CONCLUSION: No acute disease. Pradip Hurtado MD Physical Exam HEENT: Normocephalic; atraumatic; no jaundice. CHEST: Resp. shallow, even. Mildly labored, but denies sob. Diminished. CARDIAC: Irregular ABDOMEN: Soft, nondistended, nontender; no hepatosplenomegaly; bowel sounds are present in all four quadrants. EXTREMITIES: No clubbing, cyanosis, or edema. SKIN: Normal; no rash; no jaundice. BROOMCORN SORTER: No focal deficits; lethargic and oriented times three. Assessment and Plan Plan ASSESSMENT: - Severe HALLEY. Iron 6, TIBC 472, Iron Saturation 1.3. S/P 3 units PRBC. HH 7.6 /23.7. Plan was for EGD/Colonoscopy today, but procedure was cancelled secondary to no IV access. Vascular access team consulted. No obvious active bleeding. Plan for EGD/Colonoscopy in am. Okay for clears today. Heparin gtt will need to be placed on hold at MN. - Questionable Melena. Pt denies any black tarry stools. EGD/Colon in am - Leukocytosis. CXR clear. Per CCM. - Acute on chronic kidney disease, improved. - Paroxysmal atrial fibrillation. Xarelto on hold. Heparin gtt to be resumed, will need to be held after MN - RA, on methotrexate and Humira at home. - HTN, Hyperlipidemia, OA, Depression per attending. PLAN: - Plan for EGD/Colonoscopy tomorrow - Clear liquids - NPO after MN - Hold heparin after MN - Protonix 40mg po BID - Iron supplements - Monitor HH - Transfuse as necessary - Supportive care - Further recommendations to follow based on results of above - Pt seen and examined by Dr. Dior and myself and this note is written on his behalf Capri Lerma May 09, 2017 13:23
--- NOTE | 2017-05-09 15:14 | RADRPT ---
EXAM DATE/TIME: 05/09/2017 14:31 [place] COMPARISON: No previous studies available for comparison. INDICATIONS : Right arm swelling. MEDICAL HISTORY : Hypercholesterolemia. Hypertension. Rheumatoid arthritis. Afib. SURGICAL HISTORY : Bilateral knee replacement. Right ankle fusion. ENCOUNTER: Initial ACUITY: 2 day PAIN SCORE: 9/10 LOCATION: Right arm. FINDINGS: There is echogenic material that is noncompressible involving the cephalic vein throughout the forear m and distal upper arm. There is spontaneous flow documented in the brachial, basilic, axillary, and subclavian veins. The vessels are compressible and augmentation response is documented. No filling defects are seen in these vessels. The flow is phasic with respiration. Direction of flow in the ju gular vein is caudal. CONCLUSION: 1. Occlusive thrombus involving the cephalic vein particularly within the forearm. This is a superfic ial venous structure. No DVT seen. Ulices Chung Jr., MD on May 09, 2017 at 15:09 Board Certified Radiologist. This report was verified electronically.
[2017-05-09 19:57] LABS: APTT (PATIENT) 34.8 SEC (24.3-30.1)
[2017-05-09 20:07] LABS: HEMATOCRIT 21.7 % (35.0-46.0); REVIEW FLAG FINAL
[2017-05-09] MEDS: SODIUM CHLOR 0.9% 1000 ML INJ 1,000 ML IV SCH (20:26)
[2017-05-09] MEDS: oxyCODONE/ACETAMINOPHEN 5 MG/325 MG TAB PO PRN (21:29)
[2017-05-10] VITALS (19 sets, daily range): BP systolic 110–153; BP diastolic 54–115; PULSE 61–81; RESP 15–35; TEMP 97.1–98.5; O2SAT 76–100
[2017-05-10] MEDS: CHLORHEXIDINE GLUCONATE 2 % 1 PACK (2 CLOTHS) TOP SCH (03:17)
[2017-05-10 04:20] LABS: HEMATOCRIT 21.5 % (35.0-46.0); MEAN CELL VOLUME 87.5 FL (80.0-100.0); MEAN CORPUSCULAR HEMOGLOBIN 28.2 PG (27.0-34.0); MEAN CORPUSCULAR HGB CONC 32.2 % (32.0-36.0); PLATELET COUNT 228 TH/MM3 (150-450); RED BLOOD COUNT 2.46 MIL/MM3 (4.00-5.30); RED CELL DISTRIBUTION WIDTH 19.3 % (11.6-17.2); WHITE BLOOD COUNT 7.1 TH/MM3 (4.0-11.0)
[2017-05-10 04:25] LABS: REVIEW FLAG FINAL
[2017-05-10 04:36] LABS: APTT (PATIENT) 28.1 SEC (24.3-30.1)
[2017-05-10 04:55] LABS: BICARBONATE 20.7 MEQ/L (21.0-32.0); MAGNESIUM 2.8 MG/DL (1.5-2.5); POTASSIUM 3.7 MEQ/L (3.5-5.1)
[2017-05-10 05:11] LABS: CALCIUM-PROTEIN CORRECTED 7.9 MG/DL (8.5-10.1)
[2017-05-10] MEDS: FERROUS SULFATE 325 MG (65 MG ELEMENTAL IRON) TAB PO SCH ×2 (08:35→20:11)
[2017-05-10] MEDS: DILTIAZEM-CD 180 MG CAP ER PO SCH (08:35)
[2017-05-10] MEDS: PANTOPRAZOLE SOD 40 MG DELAYED RELEASE TAB PO SCH ×2 (08:35→20:11)
[2017-05-10] MEDS: ESCITALOPRAM OXALATE 10 MG TAB PO SCH (08:35)
[2017-05-10] MEDS: SODIUM CHLORIDE 0.9% FLUSH 10 ML FLUSH IV FLUSH SCH ×2 (08:35→20:13)
[2017-05-10] MEDS: AMIODARONE 200 MG TAB PO SCH (08:35)
[2017-05-10] MEDS: DOCUSATE SODIUM 50 MG/SENNA 8.6 MG TAB PO SCH ×2 (08:36→20:11)
[2017-05-10] MEDS: SODIUM CHLOR 0.9% 1000 ML INJ 1,000 ML IV SCH (08:36)
[2017-05-10] MEDS ORDERED: methylPREDNISolone SOD SUCC 125 MG/2 ML VIAL ONE (11:16)
--- NOTE | 2017-05-10 11:49 | GIPROC ---
[facility] [address] [facility]. [facility], [address] ENTEROSCOPY PROCEDURE REPORT EXAM DATE: 05/10/2017 PATIENT NAME: Alvina Fontanez MR#: [id number] BIRTHDATE: 1940 ATTENDING: Juan Dior MD ORDER #: [id number] COMPOSITE ENGINEER: Samantha Thayer and Michel Glass STATUS: inpatient INDICATIONS: The patient is a 77 yr old female here for an enteroscopy procedure due to hemoccult positive stools and control bleeding PROCEDURE PERFORMED: Small bowel enteroscopy with ablation therapy MEDICATIONS: None and Per Anesthesia. CONSENT: The patient understands the risks and benefits of the procedure and understands that these risks include, but are not limited to: sedation, allergic reaction, infection, perforation and/or bleeding. Alternative means of evaluation and treatment include, among others: physical exam, x-rays, and/or surgical intervention. The patient elects to proceed with this endoscopic procedure. medical equipment was checked for proper function. Hand hygiene and appropriate measures for infection prevention was taken. After the risks, benefits and alternatives of the procedure were thoroughly explained, Informed consent was verified, confirmed and timeout was successfully executed by the treatment team. The EC-[id number] (Pedi C) endoscope was introduced through the mouth and advanced to the afferent jejunal loop jejunum. The prep was good. The instrument was then slowly withdrawn while examining the mucosa circumferentially. The scope was then completely withdrawn from the patient and the procedure terminated. The pulse, BP, and O2 saturation were monitored and documented by the physician and the nursing staff throughout the entire procedure. The patient was cared for as planned according to standard protocol, then discharged to recovery in stable condition and with appropriate post procedure care. 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 Esophagitis was found in the distal esophagus. Gastritis was found in the antrum. ADVERSE EVENTS: There were no complications. IMPRESSIONS: 1. 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 APC ablation x 3 AVMs RECOMMENDATIONS: 1. Anti-reflux regimen 2. Avoid NSAIDS RECALL: Return as needed for Enteroscopy Juan Dior MD eSigned: Juan Dior MD 05/10/2017 11:48 AM cc: PATIENT NAME: Alvina Fontanez MR#: [id number]
--- NOTE | 2017-05-10 11:52 | GIPROC ---
[facility] [address] [facility]. [facility], [address] COLONOSCOPY PROCEDURE REPORT EXAM DATE: 05/10/2017 PATIENT NAME: Alvina Fontanez MR #: [id number] BIRTHDATE: 1940 ENDOSCOPIST: Juan Dior MD ORDER #: [id number] MILLSTONE CLEANER: Samantha Thayer and Michel Glass STATUS: inpatient INDICATIONS: The patient is a 77 yr old female here for a colonoscopy due to iron deficiency anemia PROCEDURE PERFORMED: Colonoscopy, diagnostic MEDICATIONS: None and Per Anesthesia. PREP QUALITY: inadequate PREP TYPE:GoLytely ESTIMATED BLOOD LOSS: None CONSENT: The patient understands the risks and benefits of the procedure and understands that these risks include, but are not limited to: sedation, allergic reaction, infection, perforation and/or bleeding. Alternative means of evaluation and treatment include, among others: physical exam, x-rays, and/or surgical intervention. The patient elects to proceed with this endoscopic procedure. medical equipment was checked for proper function. Hand hygiene and appropriate measures for infection prevention was taken. After the risks, benefits and alternatives of the procedure were thoroughly explained, Informed consent was verified, confirmed and timeout was successfully executed by the treatment team. A digital exam revealed external hemorrhoids The Pentax EC-[id number] endoscope was introduced through the anus and advanced to the hepatic flexure. The instrument was then slowly withdrawn as the colon was fully examined. COLON FINDINGS: Moderate diverticulosis was noted in the sigmoid colon. No bleeding was noted from the diverticulosis. Retroflexed views revealed internal hemorrhoids and Retroflexed views revealed medium internal hemorrhoids The scope was then completely withdrawn from the patient and the procedure terminated. ADVERSE EVENTS: There were no complications. IMPRESSIONS: 1. Moderate diverticulosis was noted in the sigmoid colon 2. Retroflexed views revealed internal hemorrhoids 3. Retroflexed views revealed medium internal hemorrhoids 4. Revealed external hemorrhoids RECOMMENDATIONS: 1. Continue surveillance 2. Yearly hemoccult RECALL: Return 2 days Colonoscopy Juan Dior MD eSigned: Juan Dior MD 05/10/2017 11:51 AM cc: PATIENT NAME: Alvina Fontanez MR#: [id number]
[2017-05-10] MEDS ORDERED: *RESP: ALBUTEROL 2.5 MG/3 ML NEB (PRN) PERIprocedural Use ONLY NEB ONE (11:53)
[2017-05-10] MEDS ORDERED: DO NOT ADM ANY ANTICOAGULANT DRUGS PRN (11:56)
[2017-05-10] MEDS ORDERED: LIDOCAINE HCL 1% PF 5 ML SYRINGE OTHER ONE (12:00)
[2017-05-10] MEDS ORDERED: PROPOFOL 200 MG/20 ML AMP IV ONE (12:00)
[2017-05-10] MEDS: RESP: ALBUTEROL 2.5 MG/3 ML NEB (PRN) INH (12:26)
--- NOTE | 2017-05-10 15:28 | HHI.CCPN ---
Subjective Remarks/Hospital Course History of Present Illness 77-year-old female with past medical history of paroxysmal atrial fibrillation on chronic anticoagulation with Xarelto, hypertension, rheumatoid arthritis on disease modifying therapy , osteoarthritis, prior smoking history who presents to [facility] emergency department with chief complaint of shortness of breath and dyspnea on exertion for the last 2-3 weeks. She has not had any associated chest pain, cough, hemoptysis. She was found to have hgb 4 today with prior hgb 10.1 on 04/15/17. She states she has had melena stools for about 2-3 weeks. Typically she has had about 2 melena stools every morning. Over the last 24 hours the stools have increased and she had 2 yesterday morning and 3 yesterday evening. She hasn't had any vomiting until she vomited once today, no coffee grounds or BRB. She has had anorexia for about 3 weeks but denies weight loss or night sweats. No fever, abdominal pain, back pain, fall. She has no prior history of GI bleeding. 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 No liver disease or significant EtOH hx. She has been on xarelto for 2 years and reports medication compliance. She is chronically on celebrex for several years for arthritis. She is also on prednisone 4 mg qod. She is on methotrexate and Humira for RA. Her only recent medication change is the discontinuation of Fosamax and start of Prolia 2 months ago,. She is tachycardic in 108 on arrival but has been normotensive. In the ED she received Kcentra 50 units/kg, Protonix drip. 3 units packed red cells have been ordered. Subjective: 05/06: Tmax 99.2. No acute events overnight. No nausea or vomiting . No melanotic stools overnight .Currently 3rd unit of packed red blood cells infusing, heart rate 80s. 05/07: Afebrile. No melanotic stools overnight. As today late afternoon patient went into A. fib RVR with a rate in the 140's, Cardizem 20 mg IV was bolused followed by Cardizem infusion which has been continued. Patient was previously scheduled for panendoscopy today, however patient was not adequately prepped during the night so subsequent postponement of procedure for the next 48 hours, thus delaying reading it reinitiation of Xarelto. Patient will be initiated on heparin infusion with close monitoring for active signs of bleeding and PTT, as well as serial trending H&H. Heparin will be discontinued 4 hours prior to planned panendoscopy. 05/08: Afebrile. Patient has been on heparin infusion for approximately 24 hours hemoglobin serially remains stable. No melanotic stools. Patient tolerating clear liquid diet at this time. Plan for bowel prep tonight for GI procedure tomorrow. Patient noted to be slightly tachypnea this afternoon, ABG pending, chest x-ray pending. Patient continues on bronchodilator therapy. 05/09: Early this a.m. patient was noted to have infiltration of her IV located in the right arm. Area was noted to be edematous and reddened, and painful. Previously amiodarone had been infusing. Patient noted to have good capillary refill, movement of her digits, skin warm, no cyanosis noted.Plan for ultrasound of right upper extremity. Vascular access placed to peripheral IVs in the left upper extremity, patient scheduled for panendoscopy this a.m.. Panendoscopy was cancelled secondary to per report no vascular IV access, per anesthesiology" the STONE POLISHER injected medications and the patient did not go to sleep", so both peripheral IVs were deemed to be malfunctioning/not patent. The procedure was canceled. PICC line ordered. The patient remains nothing by mouth, and off heparin infusion at this time in anticipation of procedure possibly being performed later today. 05/10: Yesterday the patient was noted to have a drop in hemoglobin, which had been down trending the patient received 1 unit of packed cells . Sodium the patient was noted to have a hemoglobin of 6.9 received 1 unit of packed red blood cells .The patient underwent endoscopy this a.m. 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 No other complaints, will initiate clear liquid diet advanced per GI recommendations. 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 Objective Vital Signs Date Time Temp Pulse Resp B/P (MAP) Pulse Ox O2 Delivery O2 Flow Rate FiO2 05/10/17 14:00 74 05/10/17 12:19 35 145/56 (85) 100 05/10/17 12:17 Nasal Cannula 4 05/10/17 12:00 97.5 Intake and Output 05/10/17 05/10/17 05/11/17 08:00 16:00 00:00 Intake Total 734 ml 820 ml Balance 734 ml 820 ml Result Diagram: 05/10/17 0359 05/10/17 0359 Imaging Last Impressions Chest X-Ray 05/05/17 1723 Signed Impressions: Service Date/Time: Friday, May 05, 2017 17:37 - CONCLUSION: The lungs are clear. Ulices Lopez MD Objective Remarks GENERAL: Well-developed well-nourished chronically ill-appearing debilitated female in no acute distress SKIN: Warm and dry. HEAD: Atraumatic. Normocephalic. EYES: Pupils equal and round. No scleral icterus. Extraocular movement intact ENT: No nasal bleeding or discharge. Mucous membranes pink and moist. NECK: Trachea midline. No JVD. CARDIOVASCULAR: Regular rate and rhythm, sinus rhythm on the monitor. No murmurs rubs or gallops. RESPIRATORY: Respiratory rate 30 .Bilateral chest excursion No accessory muscle use. Clear to auscultation bilaterally. No wheezes Rales or rhonchi. GASTROINTESTINAL: Abdomen soft, obese, non-tender, nondistended. Normoactive bowel sounds. No costovertebral angle tenderness MUSCULOSKELETAL: Extremities without clubbing, cyanosis. There is trace pedal edema. Chronic deformities of feet and hands. Limited range of motion noted right upper extremity. Right upper extremity less edematous today, painful to touch, good capillary refill gross and fine motor movement of digits intact NEUROLOGICAL: GCS 15 Awake and alert. No obvious cranial nerve deficits. Motor grossly within normal limits. Normal speech. Procedures 05/10 upper endoscopy A/P Problem List: (1) Acute blood loss anemia ICD Code: D62 - Acute posthemorrhagic anemia Status: Acute (2) Melena ICD Code: K92.1 - Melena Status: Acute (3) Iron deficiency anemia ICD Code: D50.9 - Iron deficiency anemia, unspecified (4) HLD (hyperlipidemia) ICD Code: E78.5 - Hyperlipidemia, unspecified Status: Chronic (5) HTN (hypertension) ICD Code: I10 - Essential (primary) hypertension Status: Chronic (6) Paroxysmal atrial fibrillation ICD Code: I48.0 - Paroxysmal atrial fibrillation Status: Chronic (7) Anticoagulated by anticoagulation treatment ICD Code: Z79.01 - care home (current) use of anticoagulants Status: Chronic (8) Osteoarthritis ICD Code: M19.90 - Unspecified osteoarthritis, unspecified site Status: Chronic (9) Depression ICD Code: F32.9 - Major depressive disorder, single episode, unspecified Status: Chronic (10) Rheumatoid arthritis involving multiple sites ICD Code: M06.9 - Rheumatoid arthritis involving multiple sites Status: Chronic (11) GI bleed ICD Code: K92.2 - Gastrointestinal hemorrhage, unspecified Status: Acute (12) Dyspnea ICD Code: R06.00 - Dyspnea, unspecified Status: Acute (13) Immunocompromised patient ICD Code: D84.9 - Immunodeficiency, unspecified Status: Chronic (14) Current chronic use of systemic steroids ICD Code: Z79.52 - intermediate accountant (current) use of systemic steroids Status: Chronic (15) HOLLEY (acute kidney injury) ICD Code: N17.9 - Acute kidney failure, unspecified Status: Acute (16) CKD (chronic kidney disease) stage 3, GFR 30-59 ml/min ICD Code: N18.3 - Chronic kidney disease, stage 3 (moderate) Status: Chronic (17) Tobacco abuse, in remission ICD Code: F17.201 - Nicotine dependence, unspecified, in remission Status: Chronic Assessment and Plan NEURO: Chronic pain related to rheumatoid arthritis Depression Hold NSAID due to GI bleeding, esophagitis and HOLLEY Continue Lexapro 10 mg by mouth daily Oxycodone 5/325 one by mouth every 4 hours as needed for pain RESP: Dyspnea likely secondary to symptomatic anemia-resolved Prior history of tobacco abuse Chest x-ray is clear. Nasal cannula wean as tolerated 05/08-EP chest x-ray Bronchodilators if needed CV: Paroxysmal Atrial fibrillation on chronic anticoagulation with xarelto Hyperlipidemia Hypertension Hold statin/fenofibrate for now. Hold xarelto due to bleeding. Start heparin infusion and closely monitor for active signs of bleeding. Will hold heparin at 12 midnight for panendoscopy for possible rescheduling today Catapres 0.3 mg patch weekly No known history of CHF. 05/06 Echo-EF 50-55 %, trace MVR, moderate TR, PA pressure 43.2 Dr. Trinidad following placed on amiodarone infusion 05/08, transition to PO management per cardiology GI: Melena-resolved Likely Upper GI bleeding, multiple risk factors for PUD. Resume clear liquid diet-advance per GI recommendations No prior GI workup. No h/o liver disease Management per GI -Protonix 8 mg/hour infusion changed to twice a day dosing Continue Serial hemoglobin every 6 hours- stable at 7.4 GI following-Dr. 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 Monitor BMP. Monitor electrolytes and replace as indicated per ICU electrolyte replacement protocol. ID: Monitor for signs and symptoms of infection HEME: Acute blood loss anemia Iron deficiency Chronic anticoagulation with Xarelto for atrial fibrillation Blood loss has likely been gradual over couple weeks. Transfuse 3 units PRBC now. Keep 4 units on hold. Hold Xarelto. Received K Centra 50 units per KG IV in the emergency department 05/05. Ferrous sulfate 325 mg by mouth twice a day Hemoglobin stable 7.9 On heparin infusion currently will transition to Xarelto upon confirmation with Dr. Trinidad and Dr. Escobedo. Patient has distal esophagitis will not resume aspirin. RHEUMATOLOGY: Rheumatoid arthritis Osteoarthritis Hold Humira every other week. Hold methotrexate 15 mg every Friday . 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 Pradip Presley ENDO: Chronic steroid use On prednisone 4 mg po qod. Has been on chronic steroids for years for RA. Hold currently due to GI bleeding but will likely need to resume. Hydrocortisone 50 mg IV q12 hours while acutely ill, increase if symptomatic adrenal insufficiency MSK: 05/09 right upper extremity IV infiltration of amiodarone. Obtain ultrasound- F /U results PROPH: SCD for DVT prophylaxis. Pharmacologic DVT prophylaxis -and will be initiated on heparin infusion secondary to inability to utilize Xarelto at this time for chronic atrial fibrillation, will monitor closely for signs of bleeding. (Heparin on hold for panendoscopy) ACCESS: Peripheral IV providing adequate access at this time. Central line if indicated Discussed with Dr. Escobedo, and ICING COATER at bedside (Stefanie) Full code Level 2 Planned transfer to [facility]. Plan transfer to floor Physician Daria Wiseman Problem Qualifiers (1) Iron deficiency anemia: Qualified Codes: D50.0 - Iron deficiency anemia secondary to blood loss ( chronic) (2) Osteoarthritis: (3) GI bleed: Qualified Codes: K92.2 - Gastrointestinal hemorrhage, unspecified (4) Dyspnea: Qualified Codes: R06.02 - Shortness of breath Daria Wiseman MD May 10, 2017 15:28
[2017-05-10] MEDS ORDERED: HEPARIN-D5W 25,000 U/250 ML 250 ML IV PRN (19:30)
[2017-05-10] MEDS: oxyCODONE/ACETAMINOPHEN 5 MG/325 MG TAB PO PRN (20:12)
[2017-05-10 21:39] LABS: HEMATOCRIT 28.8 % (35.0-46.0)
[2017-05-11 01:14] VITALS: BP 149/67; PULSE 78; RESP 18; TEMP 97.5; O2SAT 96
[2017-05-11] MEDS: CHLORHEXIDINE GLUCONATE 2 % 1 PACK (2 CLOTHS) TOP SCH (03:56)
[2017-05-11] MEDS: SODIUM CHLOR 0.9% 1000 ML INJ 1,000 ML IV SCH (04:29)
[2017-05-11 05:08] VITALS: BP 144/65; PULSE 80; RESP 18; TEMP 97.8; O2SAT 97
[2017-05-11 06:08] LABS: HEMATOCRIT 26.4 % (35.0-46.0); MEAN CELL VOLUME 87.1 FL (80.0-100.0); MEAN CORPUSCULAR HEMOGLOBIN 28.9 PG (27.0-34.0); MEAN CORPUSCULAR HGB CONC 33.2 % (32.0-36.0); PLATELET COUNT 234 TH/MM3 (150-450); RED BLOOD COUNT 3.04 MIL/MM3 (4.00-5.30); RED CELL DISTRIBUTION WIDTH 18.5 % (11.6-17.2); REVIEW FLAG FINAL; WHITE BLOOD COUNT 7.3 TH/MM3 (4.0-11.0)
[2017-05-11 07:02] LABS: BICARBONATE 22.2 MEQ/L (21.0-32.0); MAGNESIUM 2.9 MG/DL (1.5-2.5); POTASSIUM 4.1 MEQ/L (3.5-5.1)
[2017-05-11 07:24] LABS: CALCIUM-PROTEIN CORRECTED 8.1 MG/DL (8.5-10.1)
[2017-05-11] MEDS: DOCUSATE SODIUM 50 MG/SENNA 8.6 MG TAB PO SCH (08:19)
[2017-05-11] MEDS: methylPREDNISolone 4 MG TAB PO SCH (08:20)
[2017-05-11] MEDS: DILTIAZEM-CD 180 MG CAP ER PO SCH (08:20)
[2017-05-11 08:21] VITALS: BP 173/79; PULSE 87; RESP 20; TEMP 97.3; O2SAT 98
[2017-05-11] MEDS: FERROUS SULFATE 325 MG (65 MG ELEMENTAL IRON) TAB PO SCH (08:21)
[2017-05-11] MEDS: PANTOPRAZOLE SOD 40 MG DELAYED RELEASE TAB PO SCH (08:21)
[2017-05-11] MEDS: ESCITALOPRAM OXALATE 10 MG TAB PO SCH (08:21)
[2017-05-11] MEDS: AMIODARONE 200 MG TAB PO SCH (08:22)
[2017-05-11] MEDS: SODIUM CHLORIDE 0.9% FLUSH 10 ML FLUSH IV FLUSH SCH (08:24)
--- NOTE | 2017-05-11 08:34 | HHI.PR ---
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 She has not had any associated chest pain, cough, hemoptysis. She was found to have hgb 4 today with prior hgb 10.1 on 04/15/17. She states she has had melena stools for about 2-3 weeks. Typically she has had about 2 melena stools every morning. Over the last 24 hours the stools have increased and she had 2 yesterday morning and 3 yesterday evening. She hasn't had any vomiting until she vomited once today, no coffee grounds or BRB. She has had anorexia for about 3 weeks but denies weight loss or night sweats. No fever, abdominal pain, back pain, fall. She has no prior history of GI bleeding. No prior colonoscopy or EGD and has never seen a hand i blocker. No liver disease or significant EtOH hx. She has been on xarelto for 2 years and reports medication compliance. She is chronically on celebrex for several years for arthritis. She is also on prednisone 4 mg qod. She is on methotrexate and Humira for RA. Her only recent medication change is the discontinuation of Fosamax and start of Prolia 2 months ago,. She is tachycardic in 108 on arrival but has been normotensive. In the ED she received Kcentra 50 units/kg, Protonix drip. 3 units packed red cells have been ordered. 05/06: Tmax 99.2. No acute events overnight. No nausea or vomiting . No melanotic stools overnight .Currently 3rd unit of packed red blood cells infusing, heart rate 80s. 05/07: Afebrile. No melanotic stools overnight. As today late afternoon patient went into A. fib RVR with a rate in the 140's, Cardizem 20 mg IV was bolused followed by Cardizem infusion which has been continued. Patient was previously scheduled for panendoscopy today, however patient was not adequately prepped during the night so subsequent postponement of procedure for the next 48 hours, thus delaying reading it reinitiation of Xarelto. Patient will be initiated on heparin infusion with close monitoring for active signs of bleeding and PTT, as well as serial trending H&H. Heparin will be discontinued 4 hours prior to planned panendoscopy. 05/08: Afebrile. Patient has been on heparin infusion for approximately 24 hours hemoglobin serially remains stable. No melanotic stools. Patient tolerating clear liquid diet at this time. Plan for bowel prep tonight for GI procedure tomorrow. Patient noted to be slightly tachypnea this afternoon, ABG pending, chest x-ray pending. Patient continues on bronchodilator therapy. 05/09: Early this a.m. patient was noted to have infiltration of her IV located in the right arm. Area was noted to be edematous and reddened, and painful. Previously amiodarone had been infusing. Patient noted to have good capillary refill, movement of her digits, skin warm, no cyanosis noted.Plan for ultrasound of right upper extremity. Vascular access placed to peripheral IVs in the left upper extremity, patient scheduled for panendoscopy this a.m.. Panendoscopy was cancelled secondary to per report no vascular IV access, per anesthesiology" the APARTMENT COORDINATOR injected medications and the patient did not go to sleep", so both peripheral IVs were deemed to be malfunctioning/not patent. The procedure was canceled. PICC line ordered. The patient remains nothing by mouth, and off heparin infusion at this time in anticipation of procedure possibly being performed later today. 05/10: Yesterday the patient was noted to have a drop in hemoglobin, which had been down trending the patient received 1 unit of packed cells . Sodium the patient was noted to have a hemoglobin of 6.9 received 1 unit of packed red blood cells .The patient underwent endoscopy this a.m. 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 No other complaints, will initiate clear liquid diet advanced per GI recommendations. The patient continues on heparin infusion, will transition back on Xarelto after confirming with GI and Dr. Trinidad patient's manager application. Hospitalist Notes: 05/11: Patient transferred for Hospitalist management from intensive Care unit, seen in her bedroom in the presence of his , no nausea, vomit or diarrhea GI specialist following, she already received four units of PRBCs, status post Small bowel enteroscopy with ablation therapy 05/10/17, found Malformation in antrum, APC ablation, 3 AVMs Colonoscopy with moderate Diverticulosis was noted in the sigmoid colon, internal hemorrhoids. GI specialist signed off the case. recommended to complete Colonoscopy as outpatient, due to inadequate preparation. Objective Vital Signs Date Time Temp Pulse Resp B/P (MAP) Pulse Ox O2 Delivery O2 Flow Rate FiO2 05/11/17 05:08 97.8 80 18 144/65 (91) 97 05/11/17 01:14 97.5 78 18 149/67 (94) 96 05/10/17 23:03 77 05/10/17 22:47 98 Nasal Cannula 3.00 05/10/17 21:12 98.5 81 18 116/56 (76) 99 05/10/17 20:49 98 Nasal Cannula 2.00 05/10/17 18:00 66 05/10/17 16:00 70 05/10/17 16:00 98.2 70 21 99 05/10/17 14:00 74 05/10/17 12:19 73 35 145/56 (85) 100 05/10/17 12:19 73 05/10/17 12:17 73 05/10/17 12:17 70 19 135/75 (95) 100 Nasal Cannula 4 05/10/17 12:17 73 30 153/115 (128) 76 05/10/17 12:10 71 19 146/60 (88) 100 Nasal Cannula 4 05/10/17 12:00 74 19 139/63 (88) 99 Nasal Cannula 4 05/10/17 12:00 97.5 05/10/17 11:50 98.2 73 19 133/56 (81) 100 Nasal Cannula 4 05/10/17 11:04 97.5 79 20 152/70 100 05/10/17 10:49 97.6 80 18 140/55 98 05/10/17 10:00 66 05/10/17 10:00 66 20 110/73 (85) 100 05/10/17 09:00 67 05/10/17 09:00 67 19 134/63 (86) 100 I/O 05/10/17 05/10/17 05/10/17 05/11/17 05/11/17 05/11/17 07:00 15:00 23:00 07:00 15:00 23:00 Intake Total 734 ml 820 ml 240 ml Balance 734 ml 820 ml 240 ml Intake Oral 240 ml 240 ml IV Total 494 ml Packed Cells 400 ml Blood Product IV Normal Saline Flush 20 ml Other 400 ml # Voids 3 7 2 # Bowel Movements 2 0 Result Diagram: 05/11/17 0530 05/11/17 0530 Imaging Last Impressions Chest X-Ray 05/09/17 0600 Signed Impressions: Service Date/Time: Tuesday, May 09, 2017 03:28 - CONCLUSION: No acute disease. Pradip Hurtado MD Upper Extremity Ultrasound 05/09/17 0000 Signed Impressions: Service Date/Time: Tuesday, May 09, 2017 14:31 - CONCLUSION: 1. Occlusive thrombus involving the cephalic vein particularly within the forearm. This is a superficial venous structure. No DVT seen. Ulices Chung Jr., MD Procedures 05/10 upper endoscopy Other Results Laboratory Tests Test 05/05/17 17:00 05/05/17 20:30 05/06/17 07:17 05/07/17 15:33 Platelet Estimate NORMAL Platelet Morphology Comment NORMAL Reticulocyte Count 10.8 % Absolute Reticulocyte Count 151.0 MIL/L Haptoglobin 185 MG/DL Iron Level 6 MCG/DL Total Iron Binding Capacity 472 MCG/DL Percent Iron Saturation 1.3 % Lactate Dehydrogenase 219 U/L Troponin I 0.02 NG/ML B-Type Natriuretic Peptide 121 PG/ML Vitamin B12 Level 530 PG/ML Folate 5.7 NG/ML Nasal Screen MRSA (PCR) MRSA DETECTED Blood Urea Nitrogen 20 MG/DL Creatinine 1.01 MG/DL Random Glucose 112 MG/DL Total Protein 6.2 GM/DL Albumin 2.9 GM/DL Calcium Level 7.9 MG/DL Alkaline Phosphatase 47 U/L Aspartate Amino Transf (AST/SGOT) 25 U/L Alanine Aminotransferase (ALT/SGPT) 23 U/L Total Bilirubin 0.8 MG/DL Sodium Level 142 MEQ/L Potassium Level 3.7 MEQ/L Chloride Level 110 MEQ/L Carbon Dioxide Level 24.2 MEQ/L Triglycerides Level 158 MG/DL Cholesterol Level 96 MG/DL LDL Cholesterol 37 MG/DL HDL Cholesterol 27.2 MG/DL Cholesterol/HDL Ratio 3.52 RATIO Prothrombin Time 13.0 SEC Prothromb Time International Ratio 1.2 RATIO Test 05/08/17 04:44 05/08/17 13:05 05/10/17 03:59 05/11/17 05:30 Neutrophils (%) (Auto) 78.5 % Lymphocytes (%) (Auto) 15.9 % Monocytes (%) (Auto) 3.2 % Eosinophils (%) (Auto) 2.0 % Basophils (%) (Auto) 0.4 % Neutrophils # (Auto) 9.5 TH/MM3 Lymphocytes # (Auto) 1.9 TH/MM3 Monocytes # (Auto) 0.4 TH/MM3 Eosinophils # (Auto) 0.2 TH/MM3 Basophils # (Auto) 0.0 TH/MM3 CBC Comment DIFF FINAL Differential Comment Blood Gas Puncture Site RT RADIAL Blood Gas Patient Temperature 98.6 Blood Gas HCO3 20 mmol/L Blood Gas Base Excess -4.1 mmol/L Blood Gas Oxygen Saturation 95 % Arterial Blood pH 7.37 Arterial Blood Partial Pressure CO2 36 mmHg Arterial Blood Partial Pressure O2 96 mmHg Arterial Blood Oxygen Content 10.6 Vol % Arterial Blood Carboxyhemoglobin 1.6 % Arterial Blood Methemoglobin 1.3 % Blood Gas Hemoglobin 7.8 G/DL Oxygen Delivery Device NASAL CANNULA Blood Gas Liter Flow 2 L/M Activated Partial Thromboplast Time 28.1 SEC White Blood Count 7.3 TH/MM3 Red Blood Count 3.04 MIL/MM3 Hemoglobin 8.8 GM/DL Hematocrit 26.4 % Mean Corpuscular Volume 87.1 FL Mean Corpuscular Hemoglobin 28.9 PG Mean Corpuscular Hemoglobin Concent 33.2 % Red Cell Distribution Width 18.5 % Platelet Count 234 TH/MM3 Mean Platelet Volume 8.2 FL Blood Urea Nitrogen 16 MG/DL Creatinine 0.61 MG/DL Random Glucose 128 MG/DL Total Protein 5.7 GM/DL Calcium Level 7.3 MG/DL Phosphorus Level 1.4 MG/DL Magnesium Level 2.9 MG/DL Sodium Level 141 MEQ/L Potassium Level 4.1 MEQ/L Chloride Level 112 MEQ/L Carbon Dioxide Level 22.2 MEQ/L Anion Gap 7 MEQ/L Estimat Glomerular Filtration Rate 95 ML/MIN Protein Corrected Calcium 8.1 MG/DL Objective Remarks GENERAL: Well-developed well-nourished chronically ill-appearing debilitated female in no acute distress SKIN: Warm and dry. HEAD: Atraumatic. Normocephalic. EYES: Pupils equal and round. No scleral icterus. Extraocular movement intact ENT: No nasal bleeding or discharge. Mucous membranes pink and moist. NECK: Trachea midline. No JVD. CARDIOVASCULAR: Regular rate and rhythm, sinus rhythm on the monitor. No murmurs rubs or gallops. RESPIRATORY: Respiratory rate 30 .Bilateral chest excursion No accessory muscle use. Clear to auscultation bilaterally. No wheezes Rales or rhonchi. GASTROINTESTINAL: Abdomen soft, obese, non-tender, nondistended. Normoactive bowel sounds. No costovertebral angle tenderness MUSCULOSKELETAL: Extremities without clubbing, cyanosis. There is trace pedal edema. Chronic deformities of feet and hands. Limited range of motion noted right upper extremity. Right upper extremity less edematous today, painful to touch, good capillary refill gross and fine motor movement of digits intact NEUROLOGICAL: GCS 15 Awake and alert. No obvious cranial nerve deficits. Motor grossly within normal limits. Normal speech. Medications and IVs Current Medications Medications (Trade) Dose Ordered Sig/Edinson Route Start Time Stop Time Status Last Admin Sodium Chloride 1,000 ml @ 50 mls/hr Q20H IV 05/05/17 20:00 05/11/17 04:29 (NS Flush) 2 ml UNSCH PRN IV FLUSH 05/05/17 19:15 05/06/17 13:05 (NS Flush) 2 ml BID IV FLUSH 05/05/17 21:00 05/10/17 20:13 (Tylenol) 650 mg Q6H PRN PO 05/05/17 19:15 (Zofran Inj) 4 mg Q6H PRN IV PUSH 05/05/17 19:15 05/07/17 00:28 (Albuterol Neb) 2.5 mg Q2HR NEB PRN INH 05/05/17 19:15 05/10/17 12:26 Miscellaneous Information 1 Q361D XX 05/05/17 19:15 (Chlorhexidine 2% Cloth) Taper DAILY@04 TOP 05/06/17 04:00 05/02/18 03:59 05/10/17 03:17 (Chlorhexidine 2% Cloth) 3 pack UNSCH PRN TOP 05/05/17 19:15 (Angela-Colace) 1 tab BID PO 05/05/17 21:00 05/10/17 20:11 (Milk Of Magnesia Liq) 30 ml Q12H PRN PO 05/05/17 19:15 (Senokot) 17.2 mg Q12H PRN PO 05/05/17 19:15 (Dulcolax Supp) 10 mg DAILY PRN RECTAL 05/05/17 19:15 (Lactulose Liq) 30 ml DAILY PRN PO 05/05/17 19:15 (Morphine Inj) 2 mg Q3H PRN IV PUSH 05/05/17 22:30 05/06/17 19:47 (Ferrous Sulfate) 325 mg BID PO 05/06/17 01:15 05/10/17 20:11 (Catapres-Tts 0.3 Mg Patch.7d) 0.3 patch Q7D T-DERMAL 05/06/17 03:00 05/06/17 06:45 (Lexapro) 10 mg DAILY PO 05/06/17 09:00 05/10/17 08:35 Miscellaneous Information 1 Q7D T-DERMAL 05/13/17 03:00 (Percocet 5-325 Mg) 1 tab Q4H PRN PO 05/06/17 02:30 05/10/17 20:12 (Protonix) 40 mg Q12HR PO 05/07/17 21:00 05/10/17 20:11 (Medrol) 4 mg EVERY OTHER DAY PO 05/09/17 09:00 05/09/17 07:42 (Cordarone) 400 mg DAILY PO 05/09/17 09:00 05/10/17 08:35 (Cardizem Cd) 180 mg DAILY PO 05/09/17 09:00 05/10/17 08:35 Miscellaneous Information ALL NURSING DEPARTME... UNSCH PRN .XX 05/10/17 11:56 05/11/17 11:55 A/P Assessment and Plan 1. 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 GI specialist signed off the case. recommended to complete Colonoscopy as outpatient, due to inadequate preparation. 2. Chronic pain syndrome/Rheumatoid arthritis to hold NSAIDs due to GI bleed and esophagitis and HOLLEY, pain medicine Oxycodone 5/325 mg 3. Depression on Lexapro 10 mg daily 4. Paroxysmal Atrial Fibrillation on chronic anticoagulation with Xarelto, on hold due to GI bleed, started on Heparin `05/06 Echo EF 50-55%, trace MVR, Moderate TR, PA pressure 43.[address] Trinidad following, 5. Hypertension/Hyperlipidemia on hold Statin and Fenofibrate by now. continue Catapres 0.3 mg patch weekly 6. HOLLEY on CKD III 7. Acute blood loss anemia/Iron deficiency continue Ferrous sulfate 325 mg BID, Hemoglobin stable 8.8 8. OA and RA by history on hold Humira every other week, methotrexate 15 mg every Friday, Prednisone re started she uses Prednisone 4 mg by mouth QOD on Hydrocortisone 50 mg IV q12 hours while acutely ill, increase if symptomatic adrenal insufficiency 9. Right upper extremity infiltration with Amiodarone has superficial thrombus CD for DVT prophylaxis. Pharmacologic DVT prophylaxis was held Heparin for Endoscopic procedure. Full code Discharge Planning Expected later today or in am tomorrow. Mark Strong MD May 11, 2017 08:34
[2017-05-11] MEDS: oxyCODONE/ACETAMINOPHEN 5 MG/325 MG TAB PO PRN ×2 (09:05→13:38)
[2017-05-11 11:54] VITALS: O2SAT 98
[2017-05-11 12:12] VITALS: BP 136/63; PULSE 69; RESP 19; TEMP 97.5; O2SAT 100
--- NOTE | 2017-05-11 12:19 | HHI.GIFU ---
Subjective Remarks Patient transferred to Hospitalist management from ICU. Sitting up in chair. Tolerating diet. States she wants to go home. (Honey Sotelo) Objective Vitals I&O Vital Signs Date Time Temp Pulse Resp B/P (MAP) Pulse Ox O2 Delivery O2 Flow Rate FiO2 05/11/17 11:54 98 Nasal Cannula 3.00 05/11/17 08:32 98 Nasal Cannula 3.00 05/11/17 08:21 97.3 87 20 173/79 (110) 98 05/11/17 05:08 97.8 80 18 144/65 (91) 97 05/11/17 01:14 97.5 78 18 149/67 (94) 96 05/10/17 23:03 77 05/10/17 22:47 98 Nasal Cannula 3.00 05/10/17 21:12 98.5 81 18 116/56 (76) 99 05/10/17 20:49 98 Nasal Cannula 2.00 05/10/17 18:00 66 05/10/17 16:00 70 05/10/17 16:00 98.2 70 21 99 05/10/17 14:00 74 05/10/17 12:19 73 35 145/56 (85) 100 05/10/17 12:19 73 05/10/17 12:17 73 05/10/17 12:17 70 19 135/75 (95) 100 Nasal Cannula 4 05/10/17 12:17 73 30 153/115 (128) 76 05/10/17 12:10 71 19 146/60 (88) 100 Nasal Cannula 4 05/10/17 12:00 74 19 139/63 (88) 99 Nasal Cannula 4 05/10/17 12:00 97.5 I/O 05/10/17 05/10/17 05/10/17 05/11/17 05/11/17 05/11/17 07:00 15:00 23:00 07:00 15:00 23:00 Intake Total 734 ml 820 ml 240 ml Balance 734 ml 820 ml 240 ml Intake Oral 240 ml 240 ml IV Total 494 ml Packed Cells 400 ml Blood Product IV Normal Saline Flush 20 ml Other 400 ml # Voids 3 7 2 2 # Bowel Movements 2 0 Laboratory Laboratory Tests Test 05/10/17 16:55 05/10/17 21:21 11/26/17 05:30 Phosphorus Level 1.6 1.4 Hemoglobin 9.5 8.8 Hematocrit 28.8 26.4 White Blood Count 7.3 Red Blood Count 3.04 Mean Corpuscular Volume 87.1 Mean Corpuscular Hemoglobin 28.9 Mean Corpuscular Hemoglobin Concent 33.2 Red Cell Distribution Width 18.5 Platelet Count 234 Mean Platelet Volume 8.2 Blood Urea Nitrogen 16 Creatinine 0.61 Random Glucose 128 Total Protein 5.7 Calcium Level 7.3 Magnesium Level 2.9 Sodium Level 141 Potassium Level 4.1 Chloride Level 112 Carbon Dioxide Level 22.2 Anion Gap 7 Estimat Glomerular Filtration Rate 95 Protein Corrected Calcium 8.1 Imaging Last Impressions Chest X-Ray 05/09/17 0600 Signed Impressions: Service Date/Time: Tuesday, May 09, 2017 03:28 - CONCLUSION: No acute disease. Pradip Hurtado MD Upper Extremity Ultrasound 05/09/17 0000 Signed Impressions: Service Date/Time: Tuesday, May 09, 2017 14:31 - CONCLUSION: 1. Occlusive thrombus involving the cephalic vein particularly within the forearm. This is a superficial venous structure. No DVT seen. Ulices Chung Jr., MD Physical Exam HEENT: Normocephalic; atraumatic; no jaundice. CHEST: Resp. shallow, even. Mildly labored, but denies sob. Diminished. CARDIAC: RRR ABDOMEN: Soft, obese, nondistended, nontender; no hepatosplenomegaly; bowel sounds are present in all four quadrants. EXTREMITIES: Trace pedal edema. Chronic deformities of feet and hands. SKIN: Normal; no rash; no jaundice. MAINTENANCE TECHNICIAN: No focal deficits; awake, alert and oriented times three. (Honey Sotelo) Assessment and Plan Assessment: (1) Acute blood loss anemia ICD Codes: D62 - Acute posthemorrhagic anemia Status: Acute (2) HTN (hypertension) ICD Codes: I10 - Essential (primary) hypertension Status: Chronic (3) HOLLEY (acute kidney injury) ICD Codes: N17.9 - Acute kidney failure, unspecified Status: Acute (4) CKD (chronic kidney disease) stage 3, GFR 30-59 ml/min ICD Codes: N18.3 - Chronic kidney disease, stage 3 (moderate) Status: Chronic (5) Immunocompromised patient ICD Codes: D84.9 - Immunodeficiency, unspecified Status: Chronic (6) Rheumatoid arthritis ICD Codes: M06.9 - Rheumatoid arthritis, unspecified Plan: Acute blood loss anemia, stabilize with packed RBCs in the intensive care setting, monitor hemoglobin and hematocrit over the next 12-24 hours until stable, greater than 7. Consider EGD/colonoscopy in a.m., hold Xarelto, and RA drugs for now. Monitor vital signs including heart rate/85, currently sinus rhythm. History of atrial fibrillation Plan discussed with Dr. Dior. Monitor for any melenic stools. Hemoglobin and hematocrit every 6 hours times the next 24 hours and review. Maintain patient on Protonix drip at least for the next 24 hours. Iron deficiency anemia, currently receiving packed RBCs, monitor labs Acute kidney injury with chronic kidney disease, rheumatoid arthritis/ immunocompromise, and other comorbidities will be monitored per inspector outside production. History of EtOH abuse and dependence will be monitored for any altered mental status per inspector outside production. Patient is full code full aggressive care per her wishes Thank you very much for the consult Plan ASSESSMENT: - Severe HALLEY, with possible melena. Iron 6, TIBC 472, Iron Saturation 1.3. S/P 4 units PRBC. HH 8.8/26.4 today. Small bowel enteroscopy with ablation therapy 05/10/17--1. 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 APC ablation x 3 AVMs. Colonoscopy 05/10/17-- 1. Moderate diverticulosis was noted in the sigmoid colon 2. Retroflexed views revealed internal hemorrhoids 3. Retroflexed views revealed medium internal hemorrhoids 4. Revealed external hemorrhoids. Inadequate prep. - Acute on chronic kidney disease, improved. - Paroxysmal atrial fibrillation. Xarelto on hold. Heparin gtt on hold. - RA, on methotrexate and Humira at home. - HTN, Hyperlipidemia, OA, Depression per attending. PLAN: - Patient is refusing repeat Colonoscopy as inpatient, so GI will sign off. - Recommend completing Colonoscopy as outpatient. - Anti reflux regimen - Avoid NSAIDs - Iron supplements - Monitor HH, transfuse as necessary - Supportive care Patient seen and examined by Dr. Dior and myself and this note is written on his behalf (Honey Sotelo) Physician Comments Seen and examined with STEAM SHOVEL OILER, no active bleeding. Needs repeat colonoscopy but pt. refusing. Dc home with gi fu please. Will sign off. Thank you (Juan Dior MD) Honey Sotelo May 11, 2017 12:19 Juan Dior MD May 11, 2017 13:07
[2017-05-11] MEDS ORDERED: MUPIROCIN 2% OINT 1 APPLIC/GM SYR EACH NARE SCH (14:15)
[2017-05-11] MEDS ORDERED: PANT40TA3 PO ×2 (15:47→16:25)
[2017-05-11] MEDS ORDERED: AMIO200T PO ×2 (15:47→16:25)
[2017-05-11] MEDS ORDERED: FERR325T20 PO ×2 (15:47→16:25)
[2017-05-11] MEDS ORDERED: CARD180C5 PO ×2 (15:47→16:25)
--- NOTE | 2017-05-11 15:48 | HHI.FF ---
Face to Face Verification Diagnosis: (1) Osteoarthritis (2) Acute blood loss anemia (3) Iron deficiency anemia (4) Paroxysmal atrial fibrillation Physical Therapy Order: Evaluate and Treat, Improve ambulation, Strength and gait training Home Health Nursing Order: Medical education Signs/symptoms of disease process Medication education-adverse effect Nursing assessment with vital signs I have seen patient Alvina Fontanez on 05/11/17. My clinical findings support the need for the requested home health care services because: Ltd mobility - disease progression I certify that my clinical findings support that this patient is homebound because: Unsafe to leave home unassisted Mark Strong MD May 11, 2017 15:48
[2017-05-11] MEDS ORDERED: SYMB160A INH ×2 (15:53→16:25)
[2017-05-11] MEDS ORDERED: BACTOIN EACH NARE ×3 (15:53→16:25)
--- NOTE | 2017-05-11 15:58 | HHI.DS ---
Discharge Summary Admission Date May 05, 2017 at 18:43 Discharge Date: May 11, 2017 Admitting Diagnosis GI bleed, symptomatic anemia (1) GI bleed ICD Code: K92.2 - Gastrointestinal hemorrhage, unspecified Diagnosis: Principal Status: Acute (2) CKD (chronic kidney disease) stage 3, GFR 30-59 ml/min ICD Code: N18.3 - Chronic kidney disease, stage 3 (moderate) Diagnosis: Secondary Status: Chronic (3) Paroxysmal atrial fibrillation ICD Code: I48.0 - Paroxysmal atrial fibrillation Diagnosis: Principal Status: Chronic (4) Current chronic use of systemic steroids ICD Code: Z79.52 - intermediate teacher (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) use of systemic steroids Diagnosis: Secondary Status: Chronic (5) Tobacco abuse, in remission ICD Code: F17.201 - Nicotine dependence, unspecified, in remission Diagnosis: Secondary Status: Chronic (6) Acute blood loss anemia ICD Code: D62 - Acute posthemorrhagic anemia Diagnosis: Principal Status: Acute Procedures 05/10 upper endoscopy Brief History - From Admission 77-year-old female with past medical history of paroxysmal atrial fibrillation on chronic anticoagulation with Xarelto, hypertension, rheumatoid arthritis on disease modifying therapy , osteoarthritis, prior smoking history who presents to [facility] emergency department with chief complaint of shortness of breath and dyspnea on exertion for the last 2-3 weeks. She has not had any associated chest pain, cough, hemoptysis. She was found to have hgb 4 today with prior hgb 10.1 on 04/15/17. She states she has had melena stools for about 2-3 weeks. Typically she has had about 2 melena stools every morning. Over the last 24 hours the stools have increased and she had 2 yesterday morning and 3 yesterday evening. She hasn't had any vomiting until she vomited once today, no coffee grounds or BRB. She has had anorexia for about 3 weeks but denies weight loss or night sweats. No fever, abdominal pain, back pain, fall. She has no prior history of GI bleeding. No prior colonoscopy or EGD and has never seen a avionics technician. No liver disease or significant EtOH hx. She has been on xarelto for 2 years and reports medication compliance. She is chronically on celebrex for several years for arthritis. She is also on prednisone 4 mg qod. She is on methotrexate and Humira for RA. Her only recent medication change is the discontinuation of Fosamax and start of Prolia 2 months ago,. She is tachycardic in 108 on arrival but has been normotensive. In the ED she received Kcentra 50 units/kg, Protonix drip. 3 units packed red cells have been ordered. CBC/BMP: 05/11/17 0530 05/11/17 0530 Significant Findings Laboratory Tests Test 05/08/17 21:10 05/09/17 02:20 05/09/17 12:12 05/09/17 19:38 Hemoglobin 7.4 GM/DL (11.6-15.3) 7.4 GM/DL (11.6-15.3) 7.6 GM/DL (11.6-15.3) 7.2 GM/DL (11.6-15.3) Hematocrit 23.3 % (35.0-46.0) 23.2 % (35.0-46.0) 23.7 % (35.0-46.0) 21.7 % (35.0-46.0) Random Glucose 109 MG/DL (74-106) Total Protein 5.8 GM/DL (6.4-8.2) Calcium Level 7.1 MG/DL (8.5-10.1) Chloride Level 113 MEQ/L (98-107) Estimat Glomerular Filtration Rate 84 ML/MIN (>89) Protein Corrected Calcium 7.8 MG/DL (8.5-10.1) Activated Partial Thromboplast Time 34.8 SEC (24.3-30.1) Test 05/10/17 03:59 05/10/17 16:55 05/10/17 21:21 05/11/17 05:30 Red Blood Count 2.46 MIL/MM3 (4.00-5.30) 3.04 MIL/MM3 (4.00-5.30) Hemoglobin 6.9 GM/DL (11.6-15.3) 9.5 GM/DL (11.6-15.3) 8.8 GM/DL (11.6-15.3) Hematocrit 21.5 % (35.0-46.0) 28.8 % (35.0-46.0) 26.4 % (35.0-46.0) Red Cell Distribution Width 19.3 % (11.6-17.2) 18.5 % (11.6-17.2) Total Protein 5.5 GM/DL (6.4-8.2) 5.7 GM/DL (6.4-8.2) Calcium Level 7.1 MG/DL (8.5-10.1) 7.3 MG/DL (8.5-10.1) Phosphorus Level 1.1 MG/DL (2.5-4.9) 1.6 MG/DL (2.5-4.9) 1.4 MG/DL (2.5-4.9) Magnesium Level 2.8 MG/DL (1.5-2.5) 2.9 MG/DL (1.5-2.5) Chloride Level 113 MEQ/L (98-107) 112 MEQ/L (98-107) Carbon Dioxide Level 20.7 MEQ/L (21.0-32.0) Protein Corrected Calcium 7.9 MG/DL (8.5-10.1) 8.1 MG/DL (8.5-10.1) Random Glucose 128 MG/DL (74-106) Imaging Last Impressions Chest X-Ray 05/09/17 0600 Signed Impressions: Service Date/Time: Tuesday, May 09, 2017 03:28 - CONCLUSION: No acute disease. Pradip Hurtado MD Upper Extremity Ultrasound 05/09/17 0000 Signed Impressions: Service Date/Time: Tuesday, May 09, 2017 14:31 - CONCLUSION: 1. Occlusive thrombus involving the cephalic vein particularly within the forearm. This is a superficial venous structure. No DVT seen. Ulices Chung Jr., MD PE at Discharge GENERAL: Morbid obesity. SKIN: Warm and dry. HEAD: Atraumatic. Normocephalic. EYES: Pupils equal and round. No scleral icterus. Extraocular movement intact ENT: No nasal bleeding or discharge. Mucous membranes pink and moist. NECK: Trachea midline. No JVD. CARDIOVASCULAR: Regular rate and rhythm, sinus rhythm on the monitor. RESPIRATORY: Clear to auscultation bilateral no wheezing or crackles. GASTROINTESTINAL: Abdomen soft, obese, non-tender, nondistended. Normoactive bowel sounds. No costovertebral angle tenderness MUSCULOSKELETAL: Extremities without clubbing, cyanosis. NEUROLOGICAL: GCS 15 Awake and alert. No focal deficits. Hospital Course Law Firm Administrator Notes: 77-year-old female with past medical history of paroxysmal atrial fibrillation on chronic anticoagulation with Xarelto, hypertension, rheumatoid arthritis on disease modifying therapy , osteoarthritis, prior smoking history who presents to [facility] emergency department with chief complaint of shortness of breath and dyspnea on exertion for the last 2-3 weeks. She has not had any associated chest pain, cough, hemoptysis. She was found to have hgb 4 today with prior hgb 10.1 on 04/15/17. She states she has had melena stools for about 2-3 weeks. Typically she has had about 2 melena stools every morning. Over the last 24 hours the stools have increased and she had 2 yesterday morning and 3 yesterday evening. She hasn't had any vomiting until she vomited once today, no coffee grounds or BRB. She has had anorexia for about 3 weeks but denies weight loss or night sweats. No fever, abdominal pain, back pain, fall. She has no prior history of GI bleeding. No prior colonoscopy or EGD and has never seen a avionics technician. No liver disease or significant EtOH hx. She has been on xarelto for 2 years and reports medication compliance. She is chronically on celebrex for several years for arthritis. She is also on prednisone 4 mg qod. She is on methotrexate and Humira for RA. Her only recent medication change is the discontinuation of Fosamax and start of Prolia 2 months ago,. She is tachycardic in 108 on arrival but has been normotensive. In the ED she received Kcentra 50 units/kg, Protonix drip. 3 units packed red cells have been ordered. 05/06: Tmax 99.2. No acute events overnight. No nausea or vomiting . No melanotic stools overnight .Currently 3rd unit of packed red blood cells infusing, heart rate 80s. 05/07: Afebrile. No melanotic stools overnight. As today late afternoon patient went into A. fib RVR with a rate in the 140's, Cardizem 20 mg IV was bolused followed by Cardizem infusion which has been continued. Patient was previously scheduled for panendoscopy today, however patient was not adequately prepped during the night so subsequent postponement of procedure for the next 48 hours, thus delaying reading it reinitiation of Xarelto. Patient will be initiated on heparin infusion with close monitoring for active signs of bleeding and PTT, as well as serial trending H&H. Heparin will be discontinued 4 hours prior to planned panendoscopy. 05/08: Afebrile. Patient has been on heparin infusion for approximately 24 hours hemoglobin serially remains stable. No melanotic stools. Patient tolerating clear liquid diet at this time. Plan for bowel prep tonight for GI procedure tomorrow. Patient noted to be slightly tachypnea this afternoon, ABG pending, chest x-ray pending. Patient continues on bronchodilator therapy. 05/09: Early this a.m. patient was noted to have infiltration of her IV located in the right arm. Area was noted to be edematous and reddened, and painful. Previously amiodarone had been infusing. Patient noted to have good capillary refill, movement of her digits, skin warm, no cyanosis noted.Plan for ultrasound of right upper extremity. Vascular access placed to peripheral IVs in the left upper extremity, patient scheduled for panendoscopy this a.m.. Panendoscopy was cancelled secondary to per report no vascular IV access, per anesthesiology" the MANAGER STRATEGIC DEVELOPMENT injected medications and the patient did not go to sleep", so both peripheral IVs were deemed to be malfunctioning/not patent. The procedure was canceled. PICC line ordered. The patient remains nothing by mouth, and off heparin infusion at this time in anticipation of procedure possibly being performed later today. 05/10: Yesterday the patient was noted to have a drop in hemoglobin, which had been down trending the patient received 1 unit of packed cells . Sodium the patient was noted to have a hemoglobin of 6.9 received 1 unit of packed red blood cells .The patient underwent endoscopy this a.m. 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 No other complaints, will initiate clear liquid diet advanced per GI recommendations. 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 Hospitalist Notes: 05/11: Patient transferred for Hospitalist management from intensive Care unit, seen in her bedroom in the presence of his , no nausea, vomit or diarrhea GI specialist following, she already received four units of PRBCs, status post Small bowel enteroscopy with ablation therapy 05/10/17, found Malformation in antrum, APC ablation, 3 AVMs Colonoscopy with moderate Diverticulosis was noted in the sigmoid colon, internal hemorrhoids. GI specialist signed off the case. recommended to complete Colonoscopy as outpatient, due to inadequate preparation. Assessment and Plan 1. 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 GI specialist signed off the case. recommended to complete Colonoscopy as outpatient, due to inadequate preparation. 2. Chronic pain syndrome/Rheumatoid arthritis to hold NSAIDs due to GI bleed and esophagitis and HOLLEY, pain medicine Oxycodone 5/325 mg 3. Depression on Lexapro 10 mg daily 4. Paroxysmal Atrial Fibrillation on chronic anticoagulation with Xarelto, on hold due to GI bleed, started on Heparin `05/06 Echo EF 50-55%, trace MVR, Moderate TR, PA pressure 43.[address] Trinidad following, at this time started on Xarelto. 5. Hypertension/Hyperlipidemia on hold Statin and Fenofibrate by now. continue Catapres 0.3 mg patch weekly 6. HOLLEY on CKD III stable. 7. Acute blood loss anemia/Iron deficiency continue Ferrous sulfate 325 mg BID, Hemoglobin stable 8.8 8. OA and RA by history on hold Humira every other week, methotrexate 15 mg every Friday, Prednisone re started she uses Prednisone 4 mg by mouth QOD on Hydrocortisone 50 mg IV q12 hours while acutely ill, increase if symptomatic adrenal insufficiency 9. Right upper extremity infiltration with Amiodarone has superficial thrombus. will continue anticoagulation with Xarelto as recommended by GI when we called CD for DVT prophylaxis. Pharmacologic DVT prophylaxis was held Heparin for Endoscopic procedure. Full code Discharge Planning Discharge to SNF but the patient and her refused going to SNF but accepted to go home with [facility] for PT and Skilled nurse as per GI specialist okay to continue Xarelto at discharge was re started. Pt Condition on Discharge: Good Discharge Disposition: Disch w/ Home Health Serv Discharge Time: > 30 minutes Discharge Instructions DIET: Follow Instructions for: Heart Healthy Diet Activities you can perform: Regular-No Restrictions Other Activity Instructions: Following Physical Therapy recommendations at discharge the patient refused going to SNF but Accepted going home with [facility] explained the risks of her decision by Nurse and Charge Nurse. Mark Strong MD May 11, 2017 15:58
[2017-05-11] MEDS ORDERED: RIVAROXABAN 20 MG TAB PO SCH (21:00)
[2017-05-12] MEDS ORDERED: PEG (High)/E-LYTE SOLN 4000 ML BTL PO ONE (16:00)
[2017-05-13] MEDS ORDERED: REMOVE OLD PATCH T-DERMAL SCH (03:00)
== END 2017-05-11 16:46 | disposition home health service (06) | DRG 378 ==
LOC: NEPC 17:04 → NEDH 18:43 → HIME 19:45 → N05A 05-10 19:30
PROVIDERS: ADMIT Internal Medicine; ATTEND Internal Medicine
PROC: 3E0F7GC Introduction of Other Therapeutic Substance into Respiratory Tract, Via Natural or Artificial Opening (ICD-10-PCS; principal; 2017-05-05)
PROC: 30233N1 Transfusion of Nonautologous Red Blood Cells into Peripheral Vein, Percutaneous Approach (ICD-10-PCS; 2017-05-05)
PROC: 0DJD8ZZ Inspection of Lower Intestinal Tract, Via Natural or Artificial Opening Endoscopic (ICD-10-PCS; 2017-05-10)
PROC: 0D568ZZ Destruction of Stomach, Via Natural or Artificial Opening Endoscopic (ICD-10-PCS; 2017-05-10)
DX: K92.1 Melena (principal); D62 Acute posthemorrhagic anemia; N17.9 Acute kidney failure, unspecified; D84.9 Immunodeficiency, unspecified; I48.0 Paroxysmal atrial fibrillation; N18.3 Chronic kidney disease, stage 3 (moderate); R63.0 Anorexia; T82.594A Other mechanical complication of infusion catheter, initial encounter; K20.9 Esophagitis, unspecified; Q27.33 Arteriovenous malformation of digestive system vessel; M06.9 Rheumatoid arthritis, unspecified; F40.240 Claustrophobia; Z87.891 Personal history of nicotine dependence; M19.90 Unspecified osteoarthritis, unspecified site; I12.9 Hypertensive chronic kidney disease with stage 1 through stage 4 chronic kidney disease, or unspecified chronic kidney disease; Z79.01 Long term (current) use of anticoagulants; Z96.653 Presence of artificial knee joint, bilateral; R00.0 Tachycardia, unspecified; Z96.611 Presence of right artificial shoulder joint; D50.9 Iron deficiency anemia, unspecified; E78.5 Hyperlipidemia, unspecified; F32.9 Major depressive disorder, single episode, unspecified; Z79.52 Long term (current) use of systemic steroids; R06.02 Shortness of breath; M81.0 Age-related osteoporosis without current pathological fracture; Z53.8 Procedure and treatment not carried out for other reasons; Y71.8 Miscellaneous cardiovascular devices associated with adverse incidents, not elsewhere classified; Y92.234 Operating room of hospital as the place of occurrence of the external cause; K57.30 Diverticulosis of large intestine without perforation or abscess without bleeding; K64.8 Other hemorrhoids; G89.4 Chronic pain syndrome; K64.4 Residual hemorrhoidal skin tags
CPT/HCPCS: 36430; 36600; 71010; 76937; 80048; 80053; 80061; 82607; 82746; 82805; 83010; 83540; 83550; 83615; 83735; 83880; 84100; 84155; 84484; 85014; 85018; 85025; 85027; 85044; 85610; 85730; 86850; 86900; 86901; 86902; 86920; 86922; 87641; 93005; 93306; 93971; 94640; 94664; 96374; 96375; 99211; C9113; C9132; G0463; J0282; J0610; J1644; J2270; J2405; J2930; J7030; J7050; J7060; J7509; J7613; P9016

== ENCOUNTER → 2017-05-26 | Outpatient (CLI) | payer MEDICARE, OTHER ==
[~2017-05-26] MED LIST changes: +AMIO200T PO; +BACTOIN EACH NARE; +CARD180C5 PO; -CELE200 PO; +FERR325T20 PO; +PANT40TA3 PO; +SYMB160A INH
[2017-05-26 13:15] LABS: HEMATOCRIT 33.1 % (35.0-46.0); MEAN CELL VOLUME 89.9 FL (80.0-100.0); MEAN CORPUSCULAR HEMOGLOBIN 29.3 PG (27.0-34.0); MEAN CORPUSCULAR HGB CONC 32.6 % (32.0-36.0); PLATELET COUNT 551 TH/MM3 (150-450); RED BLOOD COUNT 3.69 MIL/MM3 (4.00-5.30); RED CELL DISTRIBUTION WIDTH 20.5 % (11.6-17.2); REVIEW FLAG FINAL; WHITE BLOOD COUNT 7.3 TH/MM3 (4.0-11.0)
[2017-05-26 13:38] LABS: POTASSIUM 3.7 MEQ/L (3.5-5.1)
== END ==
LOC: PLAB 10:20
PROVIDERS: ATTEND Family Medicine
DX: D64.9 Anemia, unspecified (principal); N28.9 Disorder of kidney and ureter, unspecified
CPT/HCPCS: 36415; 80048; 85027

== ENCOUNTER → 2017-07-23 | Outpatient (CLI) | payer MEDICARE, OTHER ==
[2017-07-23 17:10] LABS: AUTOMATED NEUTROPHIL # 4.2 TH/MM3 (1.8-7.7); BASOPHIL # 0.1 TH/MM3 (0-0.2); EOSINOPHIL # 0.1 TH/MM3 (0-0.4); HEMATOCRIT 27.2 % (35.0-46.0); HEMOGLOBIN 8.7 GM/DL (11.6-15.3); LYMPH % 29.2 % (9.0-44.0); MEAN CELL VOLUME 94.2 FL (80.0-100.0); MEAN CORPUSCULAR HGB CONC 31.8 % (32.0-36.0); MEAN PLATELET VOLUME 7.6 FL (7.0-11.0); MONO % 6.2 % (0.0-8.0); MONOCYTE # 0.4 TH/MM3 (0-0.9); NEUT % 62.6 % (16.0-70.0); PLATELET COUNT 400 TH/MM3 (150-450); RED BLOOD COUNT 2.89 MIL/MM3 (4.00-5.30); RED CELL DISTRIBUTION WIDTH 19.4 % (11.6-17.2); WHITE BLOOD COUNT 6.7 TH/MM3 (4.0-11.0)
== END ==
LOC: PLAB 14:06
PROVIDERS: ATTEND Internal Medicine Gastroenterology
DX: K92.1 Melena (principal)
CPT/HCPCS: 36415; 85025

== ENCOUNTER → 2017-07-30 | Outpatient (CLI) | payer MEDICARE, OTHER ==
[~2017-07-30] VITALS: Ht 167.6 cm; Wt 77.0 kg
[~2017-07-30] MED LIST changes: +ADAL1INJ SQ; +APIX5TAB PO; +ASPI-516 CHEW; +CHLORHEXIDINE GLUCONATE 2 % 1 PACK (2 CLOTHS) TOPICAL PRN; +FENO145T2 PO; +LACTATED RINGER'S 1000 ML IV PRN; +LIDOCAINE HCL 1% PF 5 ML SYRINGE OTHER ONE; +LIPI20TA PO; +METH2.5T PO; +METOPROLOL TARTRATE 25 MG TAB PO PRN; +POVIDONE IODINE 5% (ANTISEPSIS KIT) 4 APPLICATIONS EACH NARE PRN; +PROPOFOL 200 MG/20 ML AMP IV ONE; +SODIUM CHLORID 0.9% 500 ML IV PRN; +XARE20TA PO
--- NOTE | 2017-07-30 12:39 | PD.PROCEDR ---
GI Procedure PROCEDURE PERFORMED Enteroscopy with cautery INDICATION FOR PROCEDURE GI bleed PROCEDURE: The procedure, risks and benefits were discussed with Ms. Fontanez and informed consent was obtained. Anesthesia sedated her with Diprivan. She was placed in the left lateral decubitus position. Enteroscopy: The Pentax videoscope was introduced through the oropharynx and advanced to the second portion of the mid jejunum. FINDINGS: Esophagus this was normal Stomach there was a small hiatal hernia otherwise unremarkable with normal limits Duodenum there was active oozing from the duodenal bulb from what looks like a small AVM this was cauterized there was also a small polypoid pedunculated lesion soft with normal mucosa most suggestive of a lipoma at this point the rest of the duodenum unremarkable The jejunum this too appeared to be unremarkable with normal limits ESTIMATED BLOOD LOSS: None SPECIMENS REMOVED: None COMPLICATIONS: None IMPRESSION: Small hiatal hernia Duodenal bulb AVM Pedunculated polypoid lesion of the duodenal sweep benign-appearing probable lipoma PLAN: Repeat CBC in 5 days Resume anticoagulation in 1 week Follow-up in clinic in 2 weeks Andrzej Rivas MD Jul 30, 2017 12:39
[2017-07-30 13:10] VITALS: BP 126/53; PULSE 75; RESP 16; TEMP 98.2; O2SAT 100
== END ==
LOC: HSDC 09:59
PROVIDERS: ATTEND Internal Medicine Gastroenterology
DX: Q27.33 Arteriovenous malformation of digestive system vessel (principal); K44.9 Diaphragmatic hernia without obstruction or gangrene; K31.7 Polyp of stomach and duodenum; K57.90 Diverticulosis of intestine, part unspecified, without perforation or abscess without bleeding; K64.9 Unspecified hemorrhoids
CPT/HCPCS: 00731; 43270; J7120

== ENCOUNTER 2017-08-08 14:53 | Inpatient (IN) | payer MEDICARE, OTHER ==
[2017-08-08] VITALS (7 sets, daily range): BP systolic 130–162; BP diastolic 63–68; PULSE 72–114; RESP 14–20; TEMP 97.5–98.6; O2SAT 93–99
[~2017-08-08] VITALS: Ht 167.6 cm; Wt 77.1 kg
[~2017-08-08 14:53] MED LIST changes: -APIX5TAB PO; -ASPI-516 CHEW
--- NOTE | 2017-08-08 15:55 | RADRPT ---
EXAM DATE/TIME: 08/08/2017 15:50 [place] COMPARISON: CHEST SINGLE AP, May 09, 2017, 3:28. INDICATIONS : Short of breath. MEDICAL HISTORY : Hypercholesterolemia. Hypertension. Rheumatoid arthritis. Afib SURGICAL HISTORY : None. ENCOUNTER: Initial ACUITY: 1 day PAIN SCORE: 0/10 LOCATION: Bilateral chest FINDINGS: The heart is mildly enlarged. There chronic appearing interstitial changes within the pulmonary paren chyma. The appearance of the chest is similar to a previous dated 05/09/17. There are mild degenerative changes in the thoracic spine. The osseous structures are otherwise intac t. Note is made of a previous right shoulder arthroplasty. CONCLUSION: 1. Cardiomegaly and chronic appearing interstitial changes. Appearance of the chest is similar to the previous exam dated 05/09/17 Maximilian Ni MD on August 08, 2017 at 15:53 Board Certified Radiologist. This report was verified electronically.
[2017-08-08] MEDS ORDERED: SODIUM CHLOR 0.9% 250 ML INJ 250 ML IV ONE ×2 (17:45→19:30)
[2017-08-08] MEDS ORDERED: PANTOPRAZOLE SODIUM 40 MG VIAL IV PUSH ONE (17:45)
[2017-08-08] MEDS: PANTOPRAZOLE INJ 80 MG in SODIUM CHLORIDE 0.9% INJ 100 ML IV SCH (18:29)
[2017-08-08] MEDS ORDERED: ASPI-516 CHEW ×2 (18:46)
[2017-08-08 18:55] LABS: AUTOMATED NEUTROPHIL # 7.7 TH/MM3 (1.8-7.7); BASOPHIL # 0.1 TH/MM3 (0-0.2); BASOPHIL % 1.2 % (0.0-2.0); EOSINOPHIL # 0.1 TH/MM3 (0-0.4); EOSINOPHIL % 0.8 % (0.0-4.0); LYMPH % 19.1 % (9.0-44.0); LYMPHOCYTE # 2.3 TH/MM3 (1.0-4.8); MEAN CELL VOLUME 91.8 FL (80.0-100.0); MEAN CORPUSCULAR HEMOGLOBIN 27.4 PG (27.0-34.0); MEAN PLATELET VOLUME 7.5 FL (7.0-11.0); MONO % 14.4 % (0.0-8.0); MONOCYTE # 1.7 TH/MM3 (0-0.9); NEUT % 64.5 % (16.0-70.0); PLATELET COUNT 467 TH/MM3 (150-450); RED BLOOD COUNT 1.96 MIL/MM3 (4.00-5.30); RED CELL DISTRIBUTION WIDTH 20.4 % (11.6-17.2); WHITE BLOOD COUNT 11.9 TH/MM3 (4.0-11.0)
[2017-08-08 19:04] LABS: BICARBONATE 25.2 MEQ/L (21.0-32.0); CALCIUM 8.7 MG/DL (8.5-10.1); CREATININE 1.6 MG/DL (0.50-1.00)
--- NOTE | 2017-08-08 19:04 | PD ---
HPI Chief Complaint: Abnormal Results Time Seen by Provider: 17:41 Travel History International Travel<30 days: No Contact w/Intl Traveler<30days: No Traveled to known affect area: No History of Present Illness HPI 77-year-old female that presents to the ED for evaluation of low hemoglobin. Patient has a history of GI bleed in the past. Per patient she's had about 3 colonoscopies in the past 3 months as well as EGDs. Per patient she has a history of GI bleed and per patient and they thought that they were finally done with this but she continues to drop her hemoglobin. She has had multiple Hemoccult-positive this. Per patient her stool has been dark. She states that for the past couple days she's been feeling weak and tired especially when she stands or she moves. States having shortness of breath but no chest pain. No abdominal pain. No urinary issues. No diarrhea. States that she is compliant with her medications. She does have a history of atrial fibrillation history of Xarelto but this was discontinued because of her continuous bleeding. She only takes a baby aspirin as well as Celebrex as well as another medication for her rheumatoid arthritis. She follows with Dr. Jacobo and his group for GI here and follows with [place] GI [place]. Had blood work today and told to come here for transfusion. PFSH Past Medical History Hx Anticoagulant Therapy: Yes (XARELTO) Anemia: Yes Arthritis: Yes Atrial Fibrillation: Yes Blood Disorders: Yes Cancer: No Cardiovascular Problems: Yes High Cholesterol: Yes Diabetes: No Diminished Hearing: No Endocrine: No Genitourinary: No Hepatitis: No Hiatal Hernia: No Hypertension: Yes Immune Disorder: Yes (RHEUMATOID ARTHRITIS) Medical other: Yes (BLOOD TRANSFUSION ) Musculoskeletal: Yes (RHEUMATOID ARTHRITIS, OSTEOARTHRITIS, KASHMIR KNEES, R ANKLE REPLACEMENT) Neurologic: No Psychiatric: Yes (CLAUSTROPHOBIC) Reproductive: No Respiratory: No Immunizations Current: Yes Tetanus Vaccination: Unknown Influenza Vaccination: No ?: Not Menopausal: Yes Past Surgical History Abdominal Surgery: No AICD: No Body Medical Devices: RT ANKLE FUSION, TOES R FOOT, L HAND WIRE TO FINGER Cardiac Surgery: No Ear Surgery: No Endocrine Surgery: No Eye Surgery: No Genitourinary Surgery: No Joint Replacement: Yes (RIGHT KNEE AND LEFT KNEE) Oral Surgery: Yes (TUMOR REMOVED From the thyroid) Pacemaker: No Thoracic Surgery: No Other Surgery: Yes (RODS IN RIGHT FOOT. METAL IN TOES, R SHOULDER ) Social History Alcohol Use: Yes (OCC) Tobacco Use: No (QUIT 30 YEARS AGO) Substance Use: No Allergies-Medications (Allergen,Severity, Reaction): Coded Allergies: No Known Allergies (Verified Allergy, Unknown, 08/08/17) Reported Meds & Prescriptions Reported Meds & Active Scripts Active Pantoprazole (Pantoprazole Sodium) 40 Mg Tab 40 Mg PO Q12HR . Cardizem CD 24 HR (Diltiazem CD 24 HR) 180 Mg Caper 180 Mg PO DAILY . Amiodarone (Amiodarone HCl) 200 Mg Tab 400 Mg PO DAILY . Ferosul (Ferrous Sulfate) 325 Mg (65 Mg Iron) Tablet 325 Mg PO BID . Reported Aspirin 81 Mg Chew 81 Mg CHEW DAILY Lexapro (Escitalopram Oxalate) 10 Mg Tab 10 Mg PO DAILY Lipitor (Atorvastatin Calcium) 20 Mg Tab 20 Mg PO HS Fenofibrate 145 Mg Tab 145 Mg PO DAILY Humira 2-Pack Inj (Adalimumab 2-Pack Inj) 10 Mg/0.2 Ml Syr 10 Mg SQ Q14D Methotrexate 2.5 Mg Tab 2.5 Mg PO Q7D Review of Systems Except as stated in HPI: all other systems reviewed are Neg Physical Exam Narrative GENERAL: SKIN: Warm and dry. HEAD: Atraumatic. Normocephalic. EYES: Pupils equal and round. No scleral icterus. No injection or drainage. ENT: No nasal bleeding or discharge. Mucous membranes pink and moist. Tongue is midline. No uvula deviation. NECK: Trachea midline. No JVD. CARDIOVASCULAR: Regular rate and rhythm. No murmurs, S3, S4. RESPIRATORY: No accessory muscle use. Clear to auscultation. Breath sounds equal bilaterally. GASTROINTESTINAL: Abdomen soft, non-tender, nondistended. Hepatic and splenic margins not palpable. Rectal exam: Done with female nurse present. Hemocult negative. No active bleeding. MUSCULOSKELETAL: Extremities without clubbing, cyanosis, or edema. No obvious deformities. Full range of motion of the upper and lower extremities bilaterally. 2+ pulses bilaterally. NEUROLOGICAL: Awake and alert. No obvious cranial nerve deficits. Motor grossly within normal limits. Five out of 5 muscle strength in the arms and legs. Normal speech. PSYCHIATRIC: Appropriate mood and affect; insight and judgment normal. Data Data Last Documented VS Vital Signs Date Time Temp Pulse Resp B/P (MAP) Pulse Ox O2 Delivery O2 Flow Rate FiO2 08/08/17 18:15 98.2 72 16 162/65 (97) 95 Room Air 08/08/17 18:13 2.00 Orders Orders Electrocardiogram (08/08/17 15:11) Complete Blood Count With Diff (08/08/17 15:11) Basic Metabolic Panel (Bmp) (08/08/17 15:11) Ckmb (Isoenzyme) Profile (08/08/17 15:11) Troponin I (08/08/17 15:11) Iv Access Insert/Monitor (08/08/17 15:11) Ecg Monitoring (08/08/17 15:11) Oxygen Administration (08/08/17 15:11) Oximetry (08/08/17 15:11) Chest, Pa & Lat (08/08/17 15:11) Type And Screen (08/08/17 17:40) Red Blood Cells (Rbc) (08/08/17 17:40) Blood Product Administration (08/08/17 17:40) Sodium Chlor 0.9% 250 Ml Inj (Ns 250 Ml (08/08/17 17:45) Pantoprazole Inj (Protonix Inj) (08/08/17 17:45) Pantoprazole Inj (Protonix Inj) (08/08/17 17:45) Admit Order (Ed Use Only) (08/08/17 19:22) Red Blood Cells (Rbc) (08/08/17 19:23) Sodium Chlor 0.9% 250 Ml Inj (Ns 250 Ml (08/08/17 19:30) Labs Laboratory Tests Test 08/08/17 18:15 White Blood Count 11.9 TH/MM3 Red Blood Count 1.96 MIL/MM3 Hemoglobin 5.4 GM/DL Hematocrit 18.0 % Mean Corpuscular Volume 91.8 FL Mean Corpuscular Hemoglobin 27.4 PG Mean Corpuscular Hemoglobin Concent 29.9 % Red Cell Distribution Width 20.4 % Platelet Count 467 TH/MM3 Mean Platelet Volume 7.5 FL Neutrophils (%) (Auto) 64.5 % Lymphocytes (%) (Auto) 19.1 % Monocytes (%) (Auto) 14.4 % Eosinophils (%) (Auto) 0.8 % Basophils (%) (Auto) 1.2 % Neutrophils # (Auto) 7.7 TH/MM3 Lymphocytes # (Auto) 2.3 TH/MM3 Monocytes # (Auto) 1.7 TH/MM3 Eosinophils # (Auto) 0.1 TH/MM3 Basophils # (Auto) 0.1 TH/MM3 CBC Comment AUTO DIFF Differential Comment AUTO DIFF CONFIRMED Platelet Estimate HIGH Platelet Morphology Comment NORMAL Polychromasia 2.5 % Ovalocytes 1+ Stomatocytes 1+ Acanthocytes Blood Urea Nitrogen 20 MG/DL Creatinine 1.60 MG/DL Random Glucose 117 MG/DL Calcium Level 8.7 MG/DL Sodium Level 142 MEQ/L Potassium Level 4.1 MEQ/L Chloride Level 111 MEQ/L Carbon Dioxide Level 25.2 MEQ/L Anion Gap 6 MEQ/L Estimat Glomerular Filtration Rate 31 ML/MIN Total Creatine Kinase 38 U/L Troponin I 0.13 NG/ML MDM Medical Decision Making Medical Screen Exam Complete: Yes Emergency Medical Condition: Yes Medical Record Reviewed: Yes Interpretation(s) CBC & BMP Diagram 08/08/17 18:15 Calcium Level 8.7 Coags WNL Differential Diagnosis GI bleed versus peptic ulcer disease versus bleeding versus anemia versus symptomatic anemia Narrative Course 77-year-old female that presents to the ED for evaluation of anemia. Patient was properly examined and was found to have signs and symptoms consistent appears to be anemia. Possible for GI bleed out of her hem occult here is negative. She does have a significant history of AV bleeding in the past. Check she had this done recently. She did drop dramatically in 2 weeks. Her hemoglobin today is 5.5. At this time labs and imaging were ordered. Patient will be started on blood. Patient will be admitted to the hospitalist. I discussed the case with Dr. Gay who is aware of case and recommended patient to be admitted to medicine that he will evaluate when patient is admitted. Case discussed with Dr. Cooper who agrees to admission. Patient was started on 3 doses of blood. My attending Dr. Moore was made aware of findings and agrees with admission. H[facility]pt Point of Care Internal Pos. & Neg. Controls: Passed Fecal Specimen Occult Blood: Negative Diagnosis Primary Impression: Symptomatic anemia Additional Impressions: Dark stools Troponin level elevated Admitting Information Admitting Physician Requests: Admit Carter Saldivar Aug 08, 2017 19:04
[2017-08-08 19:08] LABS: MEAN CORPUSCULAR HGB CONC 29.9 % (32.0-36.0); TROPONIN I 0.13 NG/ML (0.02-0.05)
[2017-08-08 19:10] LABS: HEMOGLOBIN 5.4 GM/DL (11.6-15.3)
--- NOTE | 2017-08-08 19:26 | HHI.HP ---
[facility] Abdulaziz Orozco MD Admission Diagnosis symptomatic anemia, positive troponin Diagnoses: (1) GI bleed Diagnosis: Principal (2) Symptomatic anemia Diagnosis: Principal (3) Elevated troponin Diagnosis: Principal (4) HOLLEY (acute kidney injury) Diagnosis: Principal (5) A-fib Diagnosis: Principal Travel History International Travel<30 Days: No Contact w/Intl Traveler <30 Da: No Traveled to Known Affected Are: No History of Present Illness This is a 77-year-old female with a PMH of A. fib previously on Xarelto, HTN, Hyperlipidemia, Rheumatoid Arthritis and h/o GI Bleed who was referred to the ER by Dr. Dior for eval of low hemoglobin on outpatient labs. H/o recent GI Bleed, s/p EGD 07/30/[address] Rivas w/ duodenal bulb AVM s/p cautery. Had repeat labs earlier w/ Hgb 5.5. Reports occasional dizziness and SOB, no chest pain, nausea or vomiting. On arrival, BP 144/63, HR 114, O2 sat 96% on RA , Afebrile. Hemoglobin 5.4. Creatinine 1.60, previously 0.95 on 05/26/17. Troponin 0.13. CXR with cardiomegaly, no acute findings. Hemoccult negative. S/p 2u transfusion in ER, currently pending 3rd unit. GI Consulted by ER physician, started on Protonix gtt in ER Review of Systems Except as stated in HPI: all other systems reviewed are Neg ROS: 14 point review of systems otherwise negative. Past Family Social History Past Medical History PMH: A. fib previously on Xarelto, HTN, Hyperlipidemia, Rheumatoid Arthritis and h/o GI Bleed Past Surgical History PAST SURGICAL HISTORY: Right Ankle Surgery, Bilateral Knee Replacement, Right Foot Surgery Allergies: Coded Allergies: No Known Allergies (Verified Allergy, Unknown, 08/08/17) Family History PAST FAMILY HISTORY: Reviewed. No h/o DM or CAD Social History PAST SOCIAL HISTORY: Occasional alcohol. Negative for tobacco or drugs. Physical Exam Vital Signs Vital Signs Date Time Temp Pulse Resp B/P (MAP) Pulse Ox O2 Delivery O2 Flow Rate FiO2 08/08/17 18:15 98.2 72 16 162/65 (97) 95 Room Air 08/08/17 18:13 95 Nasal Cannula 2.00 08/08/17 14:54 98.6 114 20 144/63 (90) 96 Room Air Physical Exam PE: GENERAL: Elderly female in no acute distress. HEENT: PERRLA, EOMI. No scleral icterus or conjunctival pallor. No lid lag or facial droop. CARDIOVASCULAR: Regular rate and rhythm. No obvious murmurs to auscultation. No chest tenderness to palpation. RESPIRATORY: No obvious rhonchi or wheezing. Clear to auscultation. Breath sounds equal bilaterally. GASTROINTESTINAL: Abdomen soft, non-tender, nondistended. BS normal. MUSCULOSKELETAL: Extremities without clubbing, cyanosis, or edema. No obvious deformities. NEUROLOGICAL: Awake, alert and oriented x4. No focal neurologic deficits. Moving both upper and lower extremities spontaneously. Laboratory Laboratory Tests Test 08/08/17 18:15 White Blood Count 11.9 Red Blood Count 1.96 Hemoglobin 5.4 Hematocrit 18.0 Mean Corpuscular Volume 91.8 Mean Corpuscular Hemoglobin 27.4 Mean Corpuscular Hemoglobin Concent 29.9 Red Cell Distribution Width 20.4 Platelet Count 467 Mean Platelet Volume 7.5 Neutrophils (%) (Auto) 64.5 Lymphocytes (%) (Auto) 19.1 Monocytes (%) (Auto) 14.4 Eosinophils (%) (Auto) 0.8 Basophils (%) (Auto) 1.2 Neutrophils # (Auto) 7.7 Lymphocytes # (Auto) 2.3 Monocytes # (Auto) 1.7 Eosinophils # (Auto) 0.1 Basophils # (Auto) 0.1 CBC Comment AUTO DIFF Blood Urea Nitrogen 20 Creatinine 1.60 Random Glucose 117 Calcium Level 8.7 Sodium Level 142 Potassium Level 4.1 Chloride Level 111 Carbon Dioxide Level 25.2 Anion Gap 6 Estimat Glomerular Filtration Rate 31 Total Creatine Kinase 38 Troponin I 0.13 Result Diagram: 08/08/17181408/08/171814 Caprini VTE Risk Assessment Caprini VTE Risk Assessment: No/Low Risk (score <= 1) VTE Pharm Contraindication: Active bleeding Caprini Risk Assessment Model Point Value = 1 Point Value = 2 Point Value = 3 Point Value = 5 Age 41-60 Minor surgery BMI > 25 kg/m2 Swollen legs Varicose veins or History of unexplained or recurrent spontaneous Oral contraceptives or hormone replacement Sepsis (< 1 month) Serious lung disease, including pneumonia (< 1 month) Abnormal pulmonary function Acute myocardial infarction Congestive heart failure (< 1 month) History of inflammatory bowel disease Medical patient at bed rest Age 61-74 Arthroscopic surgery Major open surgery (> 45 min) Laparoscopic surgery (> 45 min) Malignancy Confined to bed (> 72 hours) Immobilizing plaster cast Central venous access Age >= 75 History of VTE Family history of VTE Factor V Leiden Prothrombin [id number] Lupus anticoagulant Anticardiolipin antibodies Elevated serum homocysteine Heparin-induced thrombocytopenia Other congenital or acquired thrombophilia Stroke (< 1 month) Elective arthroplasty Hip, pelvis, or leg fracture Acute spinal cord injury (< 1 month) Prophylaxis Regimen Total Risk Factor Score Risk Level Prophylaxis Regimen 0-1 Low Early ambulation 2 Moderate Order ONE of the following: *Sequential Compression Device (SCD) *Heparin 5000 units SQ BID 3-4 Higher Order ONE of the following medications: *Heparin 5000 units SQ TID *Enoxaparin/Lovenox 40 mg SQ daily (WT < 150 kg, CrCl > 30 mL/min) *Enoxaparin/Lovenox 30 mg SQ daily (WT < 150 kg, CrCl > 10-29 mL/min) *Enoxaparin/Lovenox 30 mg SQ BID (WT < 150 kg, CrCl > 30 mL/min) AND/OR *Sequential Compression Device (SCD) 5 or more Highest Order ONE of the following medications: *Heparin 5000 units SQ TID (Preferred with Epidurals) *Enoxaparin/Lovenox 40 mg SQ daily (WT < 150 kg, CrCl > 30 mL/min) *Enoxaparin/Lovenox 30 mg SQ daily (WT < 150 kg, CrCl > 10-29 mL/min) *Enoxaparin/Lovenox 30 mg SQ BID (WT < 150 kg, CrCl > 30 mL/min) AND *Sequential Compression Device (SCD) Assessment and Plan Problem List: (1) GI bleed ICD Code: K92.2 - Gastrointestinal hemorrhage, unspecified (2) Symptomatic anemia ICD Code: D64.9 - Anemia, unspecified Status: Acute (3) Elevated troponin ICD Code: R74.8 - Abnormal levels of other serum enzymes (4) HOLLEY (acute kidney injury) ICD Code: N17.9 - Acute kidney failure, unspecified (5) A-fib ICD Code: I48.91 - Unspecified atrial fibrillation Assessment and Plan A/P: 1. GI Bleed: h/o GI Bleed s/p EGD 07/30/[address] Rivas w/ findings of duodenal bulb AVM, s/p cautery, now w/ what appears to be recurrent bleed although Hemoccult negative. S/p 2u pRBC, pending 3rd unit, will check Hgb after final transfusion. Continue Protonix gtt, GI Consult for further eval/ intervention. Vitals stable at this time, monitor closely for acute decompensation. 2. Symptomatic Anemia: secondary to above, Hgb 5.5 per outpatient labs, now 5.4, previously 8.7 on 07/23/17, dramatic decrease in Hgb. Continue w/ Protonix gtt, currently receiving transfusions, monitor closely, obtain repeat Hgb/Hct after transfusion to eval for need to give additional transf. Hold ASA. 3. Elevated Trop: Trop 0.13, no c/o chest pain, likely secondary to demand ischemia from severe anemia. Telemetry, check serial cardiac enzymes, hold ASA in light of acute GI Bleed w/ critical anemia. Consult Cardiology if needed for further evaluation/intervention. Resume Lipitor. CXR w/ no acute findings , images reviewed by me. 4. HOLLEY: Creatinine 1.60, previously 0.95 on 05/26/17. Likely due to hypovolemia from severe anemia/GI Bleed. Check U/a, recheck labs after transfusion. Monitor I/O. 5. A-fib: Previously on Xarelto, however discontinued due to GI Bleed in the past, now only on ASA, will hold in light of GI Bleed. Resume home Amiodarone/ Cardizem, monitor vitals closely. Telemetry. 6. DVT Prophylaxis: Pharmacologic contraindication secondary to acute GI bleed. 7. Social work for DC planning as needed. 8. Case discussed at length with ER physician, lab/records/imaging reviewed by me. Physician Certification 2 Midnight Certification Type: Admission for Inpatient Services Order for Inpatient Services The services are ordered in accordance with Medicare regulations or non- Medicare payer requirements, as applicable. In the case of services not specified as inpatient-only, they are appropriately provided as inpatient services in accordance with the 2-midnight benchmark. Estimated LOS (days): 2 days is the estimated time the patient will need to remain in the hospital, assuming treatment plan goals are met and no additional complications. Post-Hospital Plan: Not yet determined Latonia Cooper MD Aug 08, 2017 19:26
[2017-08-08] MEDS ORDERED: MAGNESIUM HYDROXIDE SUSP 30 ML CUP PO PRN (19:30)
[2017-08-08] MEDS ORDERED: BISACODYL 10 MG SUPP RECTAL PRN (19:30)
[2017-08-08] MEDS ORDERED: ONDANSETRON HCL 4 MG/2 ML VIAL IVP PRN (19:30)
[2017-08-08] MEDS ORDERED: SENNOSIDES 8.6 MG TAB PO PRN (19:30)
[2017-08-08] MEDS ORDERED: MORPHINE SULFATE 2 MG/ML INJ IV PUSH PRN (19:30)
[2017-08-08] MEDS ORDERED: ACETAMINOPHEN 325 MG TAB PO PRN (19:30)
[2017-08-08] MEDS ORDERED: LACTULOSE SYRUP 20 GM/30 ML CUP PO PRN (19:30)
[2017-08-08] MEDS ORDERED: SODIUM CHLORIDE 0.9% FLUSH 10 ML FLUSH IV FLUSH PRN (19:30)
[2017-08-08 19:50] LABS: POLYCHROMASIA 2.5 % (0.0-1.9)
[2017-08-08 19:51] LABS: OVALOCYTES 1+ (NORMAL); STOMATOCYTES 1+ (NORMAL)
[2017-08-08] MEDS: SODIUM CHLORIDE 0.9% FLUSH 10 ML FLUSH IV FLUSH SCH (21:08)
[2017-08-08] MEDS: ATORVASTATIN 20 MG TAB PO SCH (21:08)
[2017-08-08] MEDS: DOCUSATE SODIUM 50 MG/SENNA 8.6 MG TAB PO SCH (21:08)
[2017-08-08] MEDS: FERROUS SULFATE 325 MG (65 MG ELEMENTAL IRON) TAB PO SCH (21:08)
[2017-08-08] MEDS: ACETAMINOPHEN/HYDROcodone 325 MG/5 MG TAB PO PRN (21:11)
--- NOTE | 2017-08-08 23:10 | EKG ---
Date Performed: 08/08/2017 Time Performed: 16:38:59 PTAGE: 77 years EKG: Sinus rhythm NONSPECIFIC T-WAVE ABNORMALITY BORDERLINE ECG PREVIOUS TRACING : 05/08/2017 13.54 No significant change from previous tracing noted. DOCTOR: Sinan Trinidad Interpretating Date/Time 08/08/2017 23:08:26
[2017-08-09] VITALS (12 sets, daily range): BP systolic 124–154; BP diastolic 55–74; PULSE 69–83; RESP 12–20; TEMP 97.4–98.3; O2SAT 93–99
[2017-08-09] MEDS: ACETAMINOPHEN/HYDROcodone 325 MG/5 MG TAB PO PRN (04:01)
[2017-08-09] MEDS: PANTOPRAZOLE INJ 80 MG in SODIUM CHLORIDE 0.9% INJ 100 ML IV SCH ×2 (05:27→18:52)
[2017-08-09] MEDS: FERROUS SULFATE 325 MG (65 MG ELEMENTAL IRON) TAB PO SCH ×2 (08:45→20:18)
[2017-08-09] MEDS: ESCITALOPRAM OXALATE 10 MG TAB PO SCH (08:45)
[2017-08-09] MEDS: DILTIAZEM-CD 180 MG CAP ER PO SCH (08:45)
[2017-08-09] MEDS: AMIODARONE 200 MG TAB PO SCH (08:45)
[2017-08-09] MEDS: FENOFIBRATE 145 MG TAB PO SCH (08:45)
[2017-08-09] MEDS: DOCUSATE SODIUM 50 MG/SENNA 8.6 MG TAB PO SCH ×2 (08:45→20:17)
[2017-08-09] MEDS: SODIUM CHLORIDE 0.9% FLUSH 10 ML FLUSH IV FLUSH SCH ×2 (08:47→20:18)
--- NOTE | 2017-08-09 09:42 | HHI.PR ---
Subjective Remarks Follow up for GI bleed, symptomatic anemia. Patient is currently doing well. No acute concerns. Denies any chest pain, SOB, fever, chills. Objective Vitals Vital Signs Date Time Temp Pulse Resp B/P (MAP) Pulse Ox O2 Delivery O2 Flow Rate FiO2 08/09/17 08:00 98.0 79 20 153/70 (97) 93 08/09/17 08:00 Room Air 08/09/17 06:15 97.5 76 16 144/67 95 08/09/17 04:00 73 08/09/17 03:47 97.4 69 12 133/60 94 08/09/17 03:31 97.6 72 14 134/55 94 08/09/17 03:00 97.6 72 14 134/55 94 08/09/17 00:39 97.9 70 14 124/58 95 08/09/17 00:27 97.9 75 16 146/65 94 08/09/17 00:00 98.3 75 18 142/65 (90) 96 08/09/17 00:00 97.9 75 16 146/65 94 08/08/17 23:40 78 08/08/17 22:00 Room Air 08/08/17 21:55 98.3 73 14 130/66 93 08/08/17 21:38 97.5 75 14 136/68 99 08/08/17 20:05 97.5 75 14 136/68 (90) 99 08/08/17 18:15 98.2 72 16 162/65 (97) 95 Room Air 08/08/17 18:13 95 Nasal Cannula 2.00 08/08/17 14:54 98.6 114 20 144/63 (90) 96 Room Air I/O 08/08/17 08/08/17 08/08/17 08/09/17 08/09/17 08/09/17 07:00 15:00 23:00 07:00 15:00 23:00 Intake Total 1480 ml Balance 1480 ml Intake Oral 120 ml Packed Cells 1200 ml Blood Product IV Normal Saline Flush 160 ml # Voids 1 # Bowel Movements 0 Result Diagram: 08/08/17181408/08/171814 Imaging Last Impressions Chest X-Ray 08/08/17 1511 Signed Impressions: Service Date/Time: Tuesday, August 08, 2017 15:50 - CONCLUSION: 1. Cardiomegaly and chronic appearing interstitial changes. Appearance of the chest is similar to the previous exam dated 05/09/17 Maximilian Ni MD Objective Remarks GENERAL: Alert, Oriented x 3, NAD. SKIN: Warm and dry. HEAD: Normocephalic. EYES: No scleral icterus. No injection or drainage. NECK: Supple, trachea midline. No JVD or lymphadenopathy. CARDIOVASCULAR: Regular rate and rhythm without murmurs, gallops, or rubs. RESPIRATORY: Breath sounds equal bilaterally. No accessory muscle use. GASTROINTESTINAL: Abdomen soft, non-tender, nondistended. MUSCULOSKELETAL: No cyanosis, or edema. BACK: Nontender without obvious deformity. No CVA tenderness. Procedures None. A/P Problem List: (1) GI bleed ICD Code: K92.2 - Gastrointestinal hemorrhage, unspecified (2) Symptomatic anemia ICD Code: D64.9 - Anemia, unspecified Status: Acute (3) Elevated troponin ICD Code: R74.8 - Abnormal levels of other serum enzymes (4) HOLLEY (acute kidney injury) ICD Code: N17.9 - Acute kidney failure, unspecified (5) A-fib ICD Code: I48.91 - Unspecified atrial fibrillation Assessment and Plan This is a 77-year-old female with a PMH of A. fib previously on Xarelto, HTN, Hyperlipidemia, Rheumatoid Arthritis and h/o GI Bleed who was referred to the ER by Dr. Dior for eval of low hemoglobin on outpatient labs. H/o recent GI Bleed, s/p EGD 07/30/[address] Rivas w/ duodenal bulb AVM s/p cautery. Reports occasional dizziness and SOB, no chest pain, nausea or vomiting. On arrival, BP 144/63, HR 114, O2 sat 96% on RA, Afebrile. Hemoglobin 5.4. Creatinine 1.60, previously 0.95 on 05/26/17. Troponin 0.13. CXR with cardiomegaly, no acute findings. Hemoccult negative. S/p 3u transfusion. GI consulted. - Acute anemia due to acute GI bleed - Acute GI bleed - Patient is currently hemodynamically stable. Hgb 5.4 --> 10.3 after 3 units of PRBCs. - GI will likely do EGD later today. - We can likely change Protonix drip to PO or IV Protonix. - Atrial fibrillation - Hx of CVA - Patient was on Xarelto but has been off for the 5 days prior to this admission. She was, however, on Aspirin. - Aspirin may be more problematic for GI bleed. We will d/c Aspirin on discharge. - Will consider starting Xarelto or Apixaban in near future. - Apixaban 2.5mg BID instead of 5mg BID would be an option. Full code. SCDs. No pharmacological anti-coagulation. Discharge plan: Possible d/c on 08/10/2017. J Carlos Padgett DO Aug 09, 2017 09:41
[2017-08-09 10:28] LABS: AUTOMATED NEUTROPHIL # 7.1 TH/MM3 (1.8-7.7); BASOPHIL # 0.1 TH/MM3 (0-0.2); BASOPHIL % 1.2 % (0.0-2.0); EOSINOPHIL # 0.2 TH/MM3 (0-0.4); EOSINOPHIL % 2.1 % (0.0-4.0); HEMATOCRIT 31.6 % (35.0-46.0); HEMOGLOBIN 10.3 GM/DL (11.6-15.3); LYMPH % 19.5 % (9.0-44.0); LYMPHOCYTE # 2.1 TH/MM3 (1.0-4.8); MEAN CELL VOLUME 86.3 FL (80.0-100.0); MEAN CORPUSCULAR HGB CONC 32.5 % (32.0-36.0); MEAN PLATELET VOLUME 7.5 FL (7.0-11.0); MONO % 13.2 % (0.0-8.0); MONOCYTE # 1.5 TH/MM3 (0-0.9); PLATELET COUNT 378 TH/MM3 (150-450); RED BLOOD COUNT 3.67 MIL/MM3 (4.00-5.30); RED CELL DISTRIBUTION WIDTH 17.3 % (11.6-17.2)
--- NOTE | 2017-08-09 10:36 | PD.CONS ---
HPI History of Present Illness This is a 77 year old obese female who was admitted on 08/08/17 with symptomatic anemia. She has a significant history of duodenal bulb AVM and was scoped by Dr. Rivas on 07/30/17 with cauterization. She has now come back to the hospital with weakness dizziness fatigue, black tarry stools. Hemoglobin was 5.4 on admission and she received 3 units of packed RBCs. Note that Hemoccult was negative in the emergency room She is currently awake alert answers questions appropriately is at her bedside. She denies any nausea vomiting diarrhea or constipation. She was on Xarelto for history of atrial fibrillation but was taken off 5 days ago and placed on Ecotrin. She is currently being managed on a Protonix drip and is currently nothing by mouth. (Caroline Mccloud) PFSH Past Medical History PMH: Lady webster previously on Xarelto 5 days ago Cardiomegaly HTN, Hyperlipidemia, Rheumatoid Arthritis h/o GI Bleed Past Surgical History PAST SURGICAL HISTORY: Right Ankle Surgery, Bilateral Knee Replacement, Right Foot Surgery (Caroline Mccloud) Coded Allergies: No Known Allergies (Verified Allergy, Unknown, 08/08/17) Medications Administered Medications Medications (Trade) Dose Ordered Sig/Edinson Route PRN Reason Start Time Stop Time Status Last Admin Dose Admin Pantoprazole Sodium 80 mg/ Sodium Chloride 100 ml @ 10 mls/hr CONTINUOUS IV 08/08/17 17:45 08/09/17 05:27 Sodium Chloride (NS Flush) 2 ml BID IV FLUSH 08/08/17 21:00 08/08/17 21:08 Acetaminophen/ Hydrocodone Bitart (Lewis 5-325 Mg) 1 tab Q4H PRN PO PAIN SCALE 3 TO 5 08/08/17 19:30 08/09/17 04:01 Senna/Docusate Sodium (Angela-Colace) 1 tab BID PO 08/08/17 21:00 08/08/17 21:08 Amiodarone HCl (Cordarone) 400 mg DAILY PO 08/09/17 09:00 08/09/17 08:45 Atorvastatin Calcium (Lipitor) 20 mg HS PO 08/08/17 21:00 08/08/17 21:08 Diltiazem HCl (Cardizem Cd) 180 mg DAILY PO 08/09/17 09:00 08/09/17 08:45 Escitalopram Oxalate (Lexapro) 10 mg DAILY PO 08/09/17 09:00 08/09/17 08:45 Ferrous Sulfate (Ferrous Sulfate) 325 mg BID PO 08/08/17 21:00 08/09/17 08:45 Family History PAST FAMILY HISTORY: Reviewed. No h/o DM or CAD Social History PAST SOCIAL HISTORY: Occasional alcohol. Negative for tobacco or drugs. She is is at her bedside (Caroline Mccloud) Review of Systems Constitutional: COMPLAINS OF: Fatigue Gastrointestinal: COMPLAINS OF: Black stools (Caroline Mccloud) GI Exam Vitals I&O Vital Signs Date Time Temp Pulse Resp B/P (MAP) Pulse Ox O2 Delivery O2 Flow Rate FiO2 08/09/17 08:00 98.0 79 20 153/70 (97) 93 08/09/17 08:00 Room Air 08/09/17 06:15 97.5 76 16 144/67 95 08/09/17 04:00 73 08/09/17 03:47 97.4 69 12 133/60 94 08/09/17 03:31 97.6 72 14 134/55 94 08/09/17 03:00 97.6 72 14 134/55 94 08/09/17 00:39 97.9 70 14 124/58 95 08/09/17 00:27 97.9 75 16 146/65 94 08/09/17 00:00 98.3 75 18 142/65 (90) 96 08/09/17 00:00 97.9 75 16 146/65 94 08/08/17 23:40 78 08/08/17 22:00 Room Air 08/08/17 21:55 98.3 73 14 130/66 93 08/08/17 21:38 97.5 75 14 136/68 99 08/08/17 20:05 97.5 75 14 136/68 (90) 99 08/08/17 18:15 98.2 72 16 162/65 (97) 95 Room Air 08/08/17 18:13 95 Nasal Cannula 2.00 08/08/17 14:54 98.6 114 20 144/63 (90) 96 Room Air I/O 2/23/18 2/2308/08/17 08/09/17 08/09/17 08/09/17 07:00 15:00 23:00 07:00 15:00 23:00 Intake Total 1480 ml Balance 1480 ml Intake Oral 120 ml Packed Cells 1200 ml Blood Product IV Normal Saline Flush 160 ml # Voids 1 # Bowel Movements 0 Imaging Last Impressions Chest X-Ray 08/08/17 1511 Signed Impressions: Service Date/Time: Tuesday, August 08, 2017 15:50 - CONCLUSION: 1. Cardiomegaly and chronic appearing interstitial changes. Appearance of the chest is similar to the previous exam dated 05/09/17 Maximilian Ni MD Laboratory Test 08/08/17 18:15 08/09/17 00:02 08/09/17 09:50 White Blood Count 11.9 TH/MM3 Red Blood Count 1.96 MIL/MM3 Hemoglobin 5.4 GM/DL Hematocrit 18.0 % Mean Corpuscular Volume 91.8 FL Mean Corpuscular Hemoglobin 27.4 PG Mean Corpuscular Hemoglobin Concent 29.9 % Red Cell Distribution Width 20.4 % Platelet Count 467 TH/MM3 Mean Platelet Volume 7.5 FL Neutrophils (%) (Auto) 64.5 % Lymphocytes (%) (Auto) 19.1 % Monocytes (%) (Auto) 14.4 % Eosinophils (%) (Auto) 0.8 % Basophils (%) (Auto) 1.2 % Neutrophils # (Auto) 7.7 TH/MM3 Lymphocytes # (Auto) 2.3 TH/MM3 Monocytes # (Auto) 1.7 TH/MM3 Eosinophils # (Auto) 0.1 TH/MM3 Basophils # (Auto) 0.1 TH/MM3 CBC Comment AUTO DIFF Differential Comment AUTO DIFF CONFIRMED Platelet Estimate HIGH Platelet Morphology Comment NORMAL Polychromasia 2.5 % Ovalocytes 1+ Stomatocytes 1+ Acanthocytes Blood Urea Nitrogen 20 MG/DL Creatinine 1.60 MG/DL Random Glucose 117 MG/DL Calcium Level 8.7 MG/DL Sodium Level 142 MEQ/L Potassium Level 4.1 MEQ/L Chloride Level 111 MEQ/L Carbon Dioxide Level 25.2 MEQ/L Anion Gap 6 MEQ/L Estimat Glomerular Filtration Rate 31 ML/MIN Total Creatine Kinase 38 U/L Troponin I 0.13 NG/ML 0.14 NG/ML Physical Examination HEENT: Pupils round and reactive to light; normocephalic; atraumatic; no jaundice. Oral cavity clean NECK: Neck is supple, obese, no JVD, no lymphadenopathy. CHEST: Managed breath sounds in her bases bilateral auscultation and percussion. CARDIAC: Elderly irregular but controlled rate ABDOMEN: Round, obese, Soft, nondistended, nontender; no hepatosplenomegaly; bowel sounds are present in all four quadrants. EXTREMITIES: Trace lower extremity edema. SKIN: Pale, thin turgor; no rash; no jaundice. HUMAN RESOURCES OFFICE ASSISTANT: No focal deficits; alert and oriented times three. (Caroline Mccloud) Assessment and Plan Plan Symptomatic anemia hemoglobin on admission was 5.4 patient had 3 units of packed RBCs. Hemoglobin pending. Recent EGD on 07/30/[address] Rivas for duodenal bulb AVMs with cautery. Patient had been on Xarelto for history of atrial fib up until 5 days ago and was changed to Ecotrin once a day. 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 Cardiomegaly per chest x-ray, possible mild CHF in bases. No obvious shortness of breath at rest. Trace of bilateral lower extremity edema. To be managed per attending. Plan EGD today , Maintain nothing by mouth for now Protonix drip, after EGD will transition to by mouth PPI Monitor for any acute bleeding or hemorrhage Monitor labs with special attention to hemoglobin Bowel regimen Further recommendations based on patient's symptoms and plan a care Patient was seen by myself and , was done on his behalf (Caroline Mccloud) Physician Comments Patient was seen and examined, agree with above-noted, and if continued anemia, plan for upper endoscopy today, patient is off anticoagulation at this time, we will monitor H&H and give packed RBC as needed (Abhi Hanson MD) Caroline Mccloud Aug 09, 2017 10:36 Abhi Hanson MD Aug 09, 2017 11:17
[2017-08-09 10:46] LABS: ALBUMIN 2.6 GM/DL (3.4-5.0); ALT (GPT) 17 U/L (10-53); AST (GOT) 29 U/L (15-37); BICARBONATE 20.9 MEQ/L (21.0-32.0); BLOOD UREA NITROGEN 15 MG/DL (7-18); CHLORIDE 111 MEQ/L (98-107); CREATININE 1.12 MG/DL (0.50-1.00); GLOMERULAR FILTRATION RATE 47 ML/MIN (>89); GLUCOSE,RANDOM 90 MG/DL (74-106); SODIUM (NA) 141 MEQ/L (136-145)
[2017-08-09 10:50] LABS: ALKALINE PHOSPHATASE 44 U/L (45-117); TOTAL BILIRUBIN ADULT 0.5 MG/DL (0.2-1.0); TOTAL PROTEIN 6.2 GM/DL (6.4-8.2); TROPONIN I 0.09 NG/ML (0.02-0.05)
--- NOTE | 2017-08-09 11:47 | PD.PROCEDR ---
GI Procedure PROCEDURE PERFORMED Upper endoscopy with biopsy INDICATION FOR PROCEDURE Anemia possible GI bleed PROCEDURE: The procedure, risks and benefits were discussed with Ms. Fontanez and informed consent was obtained. Anesthesia sedated her with Diprivan. She was placed in the left lateral decubitus position. EGD: The Pentax videoscope was introduced through the oropharynx and advanced to the second portion of the duodenum under direct visualization. Retroflexion was performed in the stomach. Biopsy from the antrum ESTIMATED BLOOD LOSS: None SPECIMENS REMOVED: Antrum COMPLICATIONS: None IMPRESSION: Moderate gastritis. Biopsy from the antrum to rule out H. pylori Significant duodenitis with small ulcer PLAN: No NSAIDs Protonix 40 mg daily Await biopsy results If anticoagulation indicated patient will need to be on the lowest possible dose with close monitoring Advance diet as tolerated Abhi Hanson MD Aug 09, 2017 11:47
[2017-08-09] MEDS ORDERED: DO NOT ADM ANY ANTICOAGULANT DRUGS PRN (12:00)
[2017-08-09] MEDS ORDERED: PROPOFOL 200 MG/20 ML AMP IV ONE ×2 (12:00)
[2017-08-09] MEDS ORDERED: SODIUM CHLOR 0.9% 250 ML INJ 250 ML IV ONE ×2 (12:00)
[2017-08-09] MEDS ORDERED: LIDOCAINE HCL 1% PF 5 ML SYRINGE OTHER ONE ×2 (12:00)
[2017-08-09] MEDS: ATORVASTATIN 20 MG TAB PO SCH (20:18)
[2017-08-10] VITALS: BP 149/71; PULSE 77; PULSE 82; RESP 16; TEMP 97.8; O2SAT 96
[2017-08-10 04:00] VITALS: BP 142/70; PULSE 82; PULSE 86; RESP 18; TEMP 97.5; O2SAT 94
[2017-08-10 08:00] VITALS: BP 160/66; PULSE 83; RESP 20; TEMP 97.7; O2SAT 95
[2017-08-10 08:11] VITALS: PULSE 75
[2017-08-10] MEDS ORDERED: PANTOPRAZOLE SOD 40 MG DELAYED RELEASE TAB PO SCH (09:00)
[2017-08-10] MEDS: FERROUS SULFATE 325 MG (65 MG ELEMENTAL IRON) TAB PO SCH (09:00)
[2017-08-10] MEDS: SODIUM CHLORIDE 0.9% FLUSH 10 ML FLUSH IV FLUSH SCH (09:00)
[2017-08-10] MEDS: DOCUSATE SODIUM 50 MG/SENNA 8.6 MG TAB PO SCH (09:39)
[2017-08-10] MEDS: AMIODARONE 200 MG TAB PO SCH (09:39)
[2017-08-10] MEDS: FENOFIBRATE 145 MG TAB PO SCH (09:39)
[2017-08-10] MEDS: ESCITALOPRAM OXALATE 10 MG TAB PO SCH (09:39)
[2017-08-10] MEDS: DILTIAZEM-CD 180 MG CAP ER PO SCH (09:39)
--- NOTE | 2017-08-10 10:52 | HHI.GIFU ---
Subjective Remarks Resting in the bed this morning Denies any nausea or vomiting No abdominal pain Was able to eat breakfast without any difficulty in room (Caroline Mccloud) Objective Vitals I&O Vital Signs Date Time Temp Pulse Resp B/P (MAP) Pulse Ox O2 Delivery O2 Flow Rate FiO2 08/10/17 08:00 97.7 83 20 160/66 (97) 95 08/10/17 04:00 97.5 86 18 142/70 (94) 94 08/10/17 04:00 82 08/10/17 04:00 Nasal Cannula 2.00 08/10/17 00:00 97.8 82 16 149/71 (97) 96 08/10/17 00:00 77 08/10/17 00:00 Nasal Cannula 2.00 08/09/17 20:00 98.1 80 18 136/74 (94) 99 08/09/17 20:00 80 08/09/17 20:00 Nasal Cannula 2.00 08/09/17 16:00 74 08/09/17 16:00 98.0 83 20 154/66 (95) 93 08/09/17 12:18 97.9 80 20 150/70 (96) 93 Room Air 08/09/17 12:00 97.6 82 20 137/63 (87) 93 08/09/17 12:00 72 20 132/66 (88) 93 Room Air 08/09/17 11:49 97.9 93 20 132/62 (85) 95 Room Air I/O 08/09/17 08/09/17 08/09/17 08/10/17 08/10/17 08/10/17 07:00 15:00 23:00 07:00 15:00 23:00 Intake Total 1480 ml 50 ml 460 ml 360 ml Balance 1480 ml 50 ml 460 ml 360 ml Intake Oral 120 ml 360 ml 360 ml IV Total 100 ml Packed Cells 1200 ml Blood Product IV Normal Saline Flush 160 ml Other 50 ml # Voids 1 3 2 # Bowel Movements 0 1 2 Laboratory Laboratory Tests Test 08/08/17 18:15 08/09/17 00:02 08/09/17 09:50 White Blood Count 11.9 TH/MM3 11.0 TH/MM3 Red Blood Count 1.96 MIL/MM3 3.67 MIL/MM3 Hemoglobin 5.4 GM/DL 10.3 GM/DL Hematocrit 18.0 % 31.6 % Mean Corpuscular Volume 91.8 FL 86.3 FL Mean Corpuscular Hemoglobin 27.4 PG 28.0 PG Mean Corpuscular Hemoglobin Concent 29.9 % 32.5 % Red Cell Distribution Width 20.4 % 17.3 % Platelet Count 467 TH/MM3 378 TH/MM3 Mean Platelet Volume 7.5 FL 7.5 FL Neutrophils (%) (Auto) 64.5 % 64.0 % Lymphocytes (%) (Auto) 19.1 % 19.5 % Monocytes (%) (Auto) 14.4 % 13.2 % Eosinophils (%) (Auto) 0.8 % 2.1 % Basophils (%) (Auto) 1.2 % 1.2 % Neutrophils # (Auto) 7.7 TH/MM3 7.1 TH/MM3 Lymphocytes # (Auto) 2.3 TH/MM3 2.1 TH/MM3 Monocytes # (Auto) 1.7 TH/MM3 1.5 TH/MM3 Eosinophils # (Auto) 0.1 TH/MM3 0.2 TH/MM3 Basophils # (Auto) 0.1 TH/MM3 0.1 TH/MM3 CBC Comment AUTO DIFF DIFF FINAL Differential Comment AUTO DIFF CONFIRMED Platelet Estimate HIGH Platelet Morphology Comment NORMAL Polychromasia 2.5 % Ovalocytes 1+ Stomatocytes 1+ Acanthocytes Blood Urea Nitrogen 20 MG/DL 15 MG/DL Creatinine 1.60 MG/DL 1.12 MG/DL Random Glucose 117 MG/DL 90 MG/DL Calcium Level 8.7 MG/DL 8.0 MG/DL Sodium Level 142 MEQ/L 141 MEQ/L Potassium Level 4.1 MEQ/L 3.7 MEQ/L Chloride Level 111 MEQ/L 111 MEQ/L Carbon Dioxide Level 25.2 MEQ/L 20.9 MEQ/L Anion Gap 6 MEQ/L 9 MEQ/L Estimat Glomerular Filtration Rate 31 ML/MIN 47 ML/MIN Total Creatine Kinase 38 U/L Troponin I 0.13 NG/ML 0.14 NG/ML 0.09 NG/ML Total Protein 6.2 GM/DL Albumin 2.6 GM/DL Alkaline Phosphatase 44 U/L Aspartate Amino Transf (AST/SGOT) 29 U/L Alanine Aminotransferase (ALT/SGPT) 17 U/L Total Bilirubin 0.5 MG/DL Imaging Last Impressions Chest X-Ray 08/08/17 1511 Signed Impressions: Service Date/Time: Tuesday, August 08, 2017 15:50 - CONCLUSION: 1. Cardiomegaly and chronic appearing interstitial changes. Appearance of the chest is similar to the previous exam dated 05/09/17 Maximilian Ni MD Physical Exam HEENT: Pupils round and reactive to light; normocephalic; atraumatic; no jaundice. Oral cavity clean, obese NECK: Neck is supple, no JVD, no lymphadenopathy. CHEST: Chest is clear to auscultation and percussion. CARDIAC: Regular rate and rhythm with no murmur gallop or rubs. ABDOMEN: Large, obese, Soft, nondistended, nontender; no hepatosplenomegaly; bowel sounds are present in all four quadrants. EXTREMITIES: No clubbing, cyanosis, or edema. SKIN: Mild paleness Normal; no rash; no jaundice. MOLDING FITTER: No focal deficits; alert and oriented times three. (Caroline Mccloud) Assessment and Plan Plan Symptomatic anemia hemoglobin on admission was 5.4 patient had 3 units of packed RBCs. Hemoglobin now stable at 10.3 Recent EGD on 07/30/[address] Rivas for duodenal bulb AVMs with cautery. Patient had been on Xarelto for history of atrial fib up until 5 days ago and was changed to Ecotrin once a day. 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 EGD done 08/09/17 for evaluation of GI bleed source, mild gastritis, duodenitis with small ulcer seen. Recommendations no NSAIDs, use lowest dose of anticoagulant as possible. His was discussed with Dr. James patel Cardiomegaly per chest x-ray, possible mild CHF in bases. No obvious shortness of breath at rest. Appears to be stable Plan No aspirin PPI Discussed with Dr. simone patel low-dose Xarelto, Monitor for any acute bleeding or hemorrhage Monitor labs with special attention to hemoglobin Bowel regimen Okay from a GI perspective for discharge when patient is stable which may be today if hemoglobin is stable according to Dr. Padgett Follow-up with GI in the office, 2-4 weeks unless she has symptoms or problems Patient was seen by myself and , was done on his behalf (Caroline Mccloud) Plan Agree with above-noted, no active bleeding, okay to be discharged from GI standpoint (Abhi Hanson MD) Caroline Mccloud Aug 10, 2017 10:52 Abhi Hanson MD Aug 10, 2017 16:56
[2017-08-10 11:41] LABS: HEMATOCRIT 31.2 % (35.0-46.0)
[2017-08-10 12:00] VITALS: BP 162/70; PULSE 82; RESP 20; TEMP 98; O2SAT 95
[2017-08-10] MEDS ORDERED: PANT40TA3 PO (12:39)
[2017-08-10] MEDS ORDERED: APIX5TAB PO (12:54)
--- NOTE | 2017-08-10 13:08 | HHI.DS ---
Discharge Summary Admission Date Aug 08, 2017 at 19:24 Discharge Date: Aug 10, 2017 Admitting Diagnosis symptomatic anemia, positive troponin (1) GI bleed ICD Code: K92.2 - Gastrointestinal hemorrhage, unspecified (2) Symptomatic anemia ICD Code: D64.9 - Anemia, unspecified Status: Acute (3) Elevated troponin ICD Code: R74.8 - Abnormal levels of other serum enzymes (4) HOLLEY (acute kidney injury) ICD Code: N17.9 - Acute kidney failure, unspecified (5) A-fib ICD Code: I48.91 - Unspecified atrial fibrillation Procedures None. Brief History - From Admission This is a 77-year-old female with a PMH of A. fib previously on Xarelto, HTN, Hyperlipidemia, Rheumatoid Arthritis and h/o GI Bleed who was referred to the ER by Dr. Dior for eval of low hemoglobin on outpatient labs. H/o recent GI Bleed, s/p EGD 07/30/[address] Rivas w/ duodenal bulb AVM s/p cautery. Had repeat labs earlier w/ Hgb 5.5. Reports occasional dizziness and SOB, no chest pain, nausea or vomiting. On arrival, BP 144/63, HR 114, O2 sat 96% on RA , Afebrile. Hemoglobin 5.4. Creatinine 1.60, previously 0.95 on 05/26/17. Troponin 0.13. CXR with cardiomegaly, no acute findings. Hemoccult negative. S/p 2u transfusion in ER, currently pending 3rd unit. GI Consulted by ER physician, started on Protonix gtt in ER CBC/BMP: 08/10/17 1110 08/09/17 0950 Significant Findings Laboratory Tests Test 08/08/17 18:15 08/09/17 00:02 08/09/17 09:50 08/10/17 11:10 White Blood Count 11.9 TH/MM3 (4.0-11.0) Red Blood Count 1.96 MIL/MM3 (4.00-5.30) 3.67 MIL/MM3 (4.00-5.30) Hemoglobin 5.4 GM/DL (11.6-15.3) 10.3 GM/DL (11.6-15.3) 10.0 GM/DL (11.6-15.3) Hematocrit 18.0 % (35.0-46.0) 31.6 % (35.0-46.0) 31.2 % (35.0-46.0) Mean Corpuscular Hemoglobin Concent 29.9 % (32.0-36.0) Red Cell Distribution Width 20.4 % (11.6-17.2) 17.3 % (11.6-17.2) Platelet Count 467 TH/MM3 (150-450) Monocytes (%) (Auto) 14.4 % (0.0-8.0) 13.2 % (0.0-8.0) Monocytes # (Auto) 1.7 TH/MM3 (0-0.9) 1.5 TH/MM3 (0-0.9) Platelet Estimate HIGH (NORMAL) Polychromasia 2.5 % (0.0-1.9) Ovalocytes 1+ (NORMAL) Stomatocytes 1+ (NORMAL) Blood Urea Nitrogen 20 MG/DL (7-18) Creatinine 1.60 MG/DL (0.50-1.00) 1.12 MG/DL (0.50-1.00) Random Glucose 117 MG/DL (74-106) Chloride Level 111 MEQ/L (98-107) 111 MEQ/L (98-107) Estimat Glomerular Filtration Rate 31 ML/MIN (>89) 47 ML/MIN (>89) Troponin I 0.13 NG/ML (0.02-0.05) 0.14 NG/ML (0.02-0.05) 0.09 NG/ML (0.02-0.05) Total Protein 6.2 GM/DL (6.4-8.2) Albumin 2.6 GM/DL (3.4-5.0) Calcium Level 8.0 MG/DL (8.5-10.1) Alkaline Phosphatase 44 U/L (45-117) Carbon Dioxide Level 20.9 MEQ/L (21.0-32.0) Imaging Last Impressions Chest X-Ray 08/08/17 7683 Signed Impressions: Service Date/Time: Tuesday, August 08, 2017 15:50 - CONCLUSION: 1. Cardiomegaly and chronic appearing interstitial changes. Appearance of the chest is similar to the previous exam dated 05/09/17 Maximilian Ni MD PE at Discharge GENERAL: Alert, Oriented x 3, NAD. SKIN: Warm and dry. HEAD: Normocephalic. EYES: No scleral icterus. No injection or drainage. NECK: Supple, trachea midline. No JVD or lymphadenopathy. CARDIOVASCULAR: Regular rate and rhythm without murmurs, gallops, or rubs. RESPIRATORY: Breath sounds equal bilaterally. No accessory muscle use. GASTROINTESTINAL: Abdomen soft, non-tender, nondistended. MUSCULOSKELETAL: No cyanosis, or edema. BACK: Nontender without obvious deformity. No CVA tenderness. Pt update on day of discharge Follow-up for GI bleed. She does currently doing well. No acute concerns. Denies any chest pain, shortness of breath, fever or chills. Family members at bedside. Hospital Course This is a 77-year-old female with a PMH of A. fib previously on Xarelto, HTN, Hyperlipidemia, Rheumatoid Arthritis and h/o GI Bleed who was referred to the ER by Dr. Dior for eval of low hemoglobin on outpatient labs. H/o recent GI Bleed, s/p EGD 07/30/[address] Rivas w/ duodenal bulb AVM s/p cautery. Reports occasional dizziness and SOB, no chest pain, nausea or vomiting. On arrival, BP 144/63, HR 114, O2 sat 96% on RA, Afebrile. Hemoglobin 5.4. Creatinine 1.60, previously 0.95 on 05/26/17. Troponin 0.13. CXR with cardiomegaly, no acute findings. Hemoccult negative. S/p 3u transfusion. GI consulted. - Acute anemia due to acute GI bleed - Acute GI bleed - Patient is currently hemodynamically stable. Hgb 5.4 --> 10.3 after 3 units of PRBCs. -EGD done on 08/09/2017. EGD shows significant duodenitis with small ulcer. GI recommended no NSAIDs and to continue Protonix 40 mg daily. GI also recommended that anticoagulation can be started with lowest possible dose with close monitoring. -Patient is on Protonix - Atrial fibrillation - Hx of CVA - [id number] score is 5. - Patient was on Xarelto but has been off for the 5 days prior to this admission. She was, however, on Aspirin. - Aspirin may be more problematic for GI bleed. We will d/c Aspirin on discharge. - Will consider starting Xarelto or Apixaban in near future. - Based on Rocket-AF, Quan studies, Apixaban would be relatively less risky for GI bleed than Xarelto. Apixaban is also less riskier than Aspirin. - Discussed with patient about Apixaban vs. Xarelto. Again reiterated that no NSAIDs including Aspirin and Celebrex. Patient should start taking Apixaban and stop Xarelto. Full code. SCDs. Pt Condition on Discharge: Good Discharge Disposition: Discharge Home Discharge Time: > 30 minutes Discharge Instructions DIET: Follow Instructions for: Heart Healthy Diet Activities you can perform: Regular-No Restrictions Follow up Referrals: PCP Follow-up - 1 Week New Medications: Apixaban (Eliquis) 5 Mg Tab 5 MG PO BID for Blood Clot Prevention, #60 TAB 5 Refills DO not take Xarelto while on this medication. Pantoprazole (Pantoprazole) 40 Mg Tab 40 MG PO DAILY for Reflux, #90 TAB 3 Refills Continued Medications: Adalimumab 2-Pack Inj (Humira 2-Pack Inj) 10 Mg/0.2 Ml Syr 10 MG SQ Q14D, KIT 0 Refills Amiodarone (Amiodarone) 200 Mg Tab 400 MG PO DAILY for atrial fibrillation, #30 TAB 0 Refills . Atorvastatin (Lipitor) 20 Mg Tab 20 MG PO HS for Cholesterol Management, TAB 0 Refills Diltiazem CD 24 HR (Cardizem CD 24 HR) 180 Mg Caper 180 MG PO DAILY for atrial fibrillation, #30 CAP 0 Refills . Escitalopram (Lexapro) 10 Mg Tab 10 MG PO DAILY, TAB 0 Refills Fenofibrate (Fenofibrate) 145 Mg Tab 145 MG PO DAILY, TAB 0 Refills Ferrous Sulfate (Ferosul) 325 Mg (65 Mg Iron) Tablet 325 MG PO BID for anemia, #60 TAB 0 Refills . Methotrexate (Methotrexate) 2.5 Mg Tab 2.5 MG PO Q7D, TAB 0 Refills Discontinued Medications: Aspirin (Aspirin) 81 Mg Chew 81 MG CHEW DAILY, TAB 0 Refills Pantoprazole (Pantoprazole) 40 Mg Tab 40 MG PO Q12HR for GI bleed, #60 TAB 0 Refills . J Carlos Padgett DO Aug 10, 2017 13:08
== END 2017-08-10 13:40 | disposition home or self-care (01) | DRG 378 ==
LOC: NEPE 14:53 → NEDA 19:24 → N04B 20:19
PROVIDERS: ADMIT Hospitalist; ATTEND Hospitalist
PROC: 30233N1 Transfusion of Nonautologous Red Blood Cells into Peripheral Vein, Percutaneous Approach (ICD-10-PCS; 2017-08-08)
PROC: 0DB68ZX Excision of Stomach, Via Natural or Artificial Opening Endoscopic, Diagnostic (ICD-10-PCS; principal; 2017-08-09 11:26)
DX: K92.2 Gastrointestinal hemorrhage, unspecified (principal); D62 Acute posthemorrhagic anemia; N17.9 Acute kidney failure, unspecified; I48.91 Unspecified atrial fibrillation; I24.8 Other forms of acute ischemic heart disease; E86.1 Hypovolemia; I11.9 Hypertensive heart disease without heart failure; K29.70 Gastritis, unspecified, without bleeding; E66.9 Obesity, unspecified; E78.5 Hyperlipidemia, unspecified; F40.240 Claustrophobia; K29.80 Duodenitis without bleeding; K26.9 Duodenal ulcer, unspecified as acute or chronic, without hemorrhage or perforation; M06.9 Rheumatoid arthritis, unspecified; Z68.27 Body mass index [BMI] 27.0-27.9, adult; Z79.82 Long term (current) use of aspirin; Z96.653 Presence of artificial knee joint, bilateral; Z87.891 Personal history of nicotine dependence; Z86.73 Personal history of transient ischemic attack (TIA), and cerebral infarction without residual deficits; M05.771 Rheumatoid arthritis with rheumatoid factor of right ankle and foot without organ or systems involvement
CPT/HCPCS: 36430; 71046; 80048; 80053; 82550; 84484; 85014; 85018; 85025; 86850; 86900; 86901; 86920; 86922; 88305; 88312; 93005; 96365; 96375; C9113; J7050; P9016

== ENCOUNTER → 2017-08-08 | Outpatient (CLI) | payer MEDICARE, OTHER ==
[~2017-08-08] MED LIST changes: -ADAL1INJ INJ; -ATOR20TA42 PO; -BACTOIN EACH NARE; -CHLORHEXIDINE GLUCONATE 2 % 1 PACK (2 CLOTHS) TOPICAL PRN; -CLON.3T TD; -FENO50TA PO; -LACTATED RINGER'S 1000 ML IV PRN; -LIDOCAINE HCL 1% PF 5 ML SYRINGE OTHER ONE; -METH2.5 PO; -METH4PAK PO; -METOPROLOL TARTRATE 25 MG TAB PO PRN; -OXYC1SOL5 PO; -POVIDONE IODINE 5% (ANTISEPSIS KIT) 4 APPLICATIONS EACH NARE PRN; -PROPOFOL 200 MG/20 ML AMP IV ONE; -RIVA20 PO; -SODIUM CHLORID 0.9% 500 ML IV PRN; -SYMB160A INH
[2017-08-08 13:25] LABS: AUTOMATED NEUTROPHIL # 7.4 TH/MM3 (1.8-7.7); BASOPHIL # 0.1 TH/MM3 (0-0.2); BASOPHIL % 0.9 % (0.0-2.0); EOSINOPHIL # 0.2 TH/MM3 (0-0.4); EOSINOPHIL % 1.6 % (0.0-4.0); LYMPHOCYTE # 1.9 TH/MM3 (1.0-4.8); MEAN CELL VOLUME 92.6 FL (80.0-100.0); MEAN CORPUSCULAR HEMOGLOBIN 27.6 PG (27.0-34.0); MEAN PLATELET VOLUME 7.5 FL (7.0-11.0); MONO % 14.9 % (0.0-8.0); MONOCYTE # 1.7 TH/MM3 (0-0.9); NEUT % 65.6 % (16.0-70.0); PLATELET COUNT 482 TH/MM3 (150-450); RED CELL DISTRIBUTION WIDTH 20.2 % (11.6-17.2); WHITE BLOOD COUNT 11.2 TH/MM3 (4.0-11.0)
[2017-08-08 13:48] LABS: ALBUMIN 2.7 GM/DL (3.4-5.0); ALT (GPT) 16 U/L (10-53); AST (GOT) 20 U/L (15-37); BICARBONATE 23.7 MEQ/L (21.0-32.0); BLOOD UREA NITROGEN 17 MG/DL (7-18); C-REACTIVE PROTEIN 4.12 MG/DL (0.00-0.30); CALCIUM 8.3 MG/DL (8.5-10.1); CHLORIDE 111 MEQ/L (98-107); CREATININE 1.59 MG/DL (0.50-1.00); GLOMERULAR FILTRATION RATE 31 ML/MIN (>89); GLUCOSE,RANDOM 129 MG/DL (74-106); SODIUM (NA) 143 MEQ/L (136-145)
[2017-08-08 13:51] LABS: ALKALINE PHOSPHATASE 43 U/L (45-117); TOTAL BILIRUBIN ADULT 0.2 MG/DL (0.2-1.0); TOTAL PROTEIN 5.9 GM/DL (6.4-8.2)
[2017-08-08 14:05] LABS: MEAN CORPUSCULAR HGB CONC 29.7 % (32.0-36.0)
[2017-08-08 14:06] LABS: HEMATOCRIT 18.5 % (35.0-46.0); HEMOGLOBIN 5.5 GM/DL (11.6-15.3)
[2017-08-08 14:16] LABS: BANDS 1 % (0-6); CORRECTED NUCLEATED RBC 3 /100 WBC (0-0); LYMPHOCYTES 6 % (9-44); MONOCYTES 16 % (0-8); NEUTROPHIL # MANUAL DIFF 8.4 TH/MM3 (1.8-7.7); NUCLEATED RED BLOOD CELL 3 (0-0); POLYS (SEG NEUTROPHILS) 74 % (16-70)
== END ==
LOC: PLAB 11:22
PROVIDERS: ATTEND Allergy & Immunology
DX: M05.771 Rheumatoid arthritis with rheumatoid factor of right ankle and foot without organ or systems involvement (principal)
CPT/HCPCS: 36415; 80053; 85007; 85027; 86140

== ENCOUNTER → 2017-08-28 | Outpatient (CLI) | payer MEDICARE, OTHER ==
[~2017-08-28] MED LIST changes: +APIX5TAB PO; -XARE20TA PO
[2017-08-28 13:04] LABS: HEMOGLOBIN 10.7 GM/DL (11.6-15.3); MEAN CELL VOLUME 86.2 FL (80.0-100.0); MEAN CORPUSCULAR HEMOGLOBIN 26.4 PG (27.0-34.0); MEAN CORPUSCULAR HGB CONC 30.6 % (32.0-36.0); MEAN PLATELET VOLUME 8.2 FL (7.0-11.0); PLATELET COUNT 479 TH/MM3 (150-450); RED BLOOD COUNT 4.06 MIL/MM3 (4.00-5.30); RED CELL DISTRIBUTION WIDTH 18.3 % (11.6-17.2); WHITE BLOOD COUNT 5.3 TH/MM3 (4.0-11.0)
[2017-08-28 13:11] LABS: AST (GOT) 36 U/L (15-37); BICARBONATE 26.7 MEQ/L (21.0-32.0); BLOOD UREA NITROGEN 17 MG/DL (7-18); CALCIUM 8.7 MG/DL (8.5-10.1); CHLORIDE 105 MEQ/L (98-107); CHOLESTEROL 139 MG/DL (120-200); CREATININE 1.19 MG/DL (0.50-1.00); GLOMERULAR FILTRATION RATE 44 ML/MIN (>89); GLUCOSE,FASTING 102 MG/DL (74-99); SODIUM (NA) 140 MEQ/L (136-145); TRIGLYCERIDES 140 MG/DL (42-150)
[2017-08-28 13:13] LABS: ALKALINE PHOSPHATASE 47 U/L (45-117); ALT (GPT) 31 U/L (10-53); CHOLESTEROL/ HDL RATIO 2.81 RATIO; HDL CHOLESTEROL 49.4 MG/DL (40.0-60.0); LDL CHOLESTEROL 62 MG/DL (0-99); TOTAL BILIRUBIN ADULT 0.3 MG/DL (0.2-1.0); TOTAL PROTEIN 7.1 GM/DL (6.4-8.2)
== END ==
LOC: PLAB 09:54
PROVIDERS: ATTEND Internal Medicine Gastroenterology
DX: D64.9 Anemia, unspecified (principal); K92.1 Melena; E78.2 Mixed hyperlipidemia; M06.9 Rheumatoid arthritis, unspecified; Z78.9 Other specified health status
CPT/HCPCS: 80053; 80061; 80299; 85027

== ENCOUNTER → 2017-09-25 | Outpatient (CLI) | payer MEDICARE, OTHER ==
[2017-09-25 13:59] LABS: AUTOMATED NEUTROPHIL # 3.7 TH/MM3 (1.8-7.7); BASOPHIL % 0.7 % (0.0-2.0); EOSINOPHIL # 0.1 TH/MM3 (0-0.4); HEMATOCRIT 33.4 % (35.0-46.0); HEMOGLOBIN 10.7 GM/DL (11.6-15.3); LYMPHOCYTE # 1.9 TH/MM3 (1.0-4.8); MEAN CELL VOLUME 87.2 FL (80.0-100.0); MEAN PLATELET VOLUME 8.5 FL (7.0-11.0); MONO % 11.7 % (0.0-8.0); MONOCYTE # 0.8 TH/MM3 (0-0.9); NEUT % 56.6 % (16.0-70.0); PLATELET COUNT 440 TH/MM3 (150-450); RED BLOOD COUNT 3.83 MIL/MM3 (4.00-5.30); RED CELL DISTRIBUTION WIDTH 20.5 % (11.6-17.2); WHITE BLOOD COUNT 6.5 TH/MM3 (4.0-11.0)
== END ==
LOC: PLAB 11:38
PROVIDERS: ATTEND Internal Medicine Gastroenterology
DX: D64.9 Anemia, unspecified (principal); Z78.9 Other specified health status
CPT/HCPCS: 36415; 85025